=== PATIENT | female | born 2000 | race Caucasian/White ===

== ENCOUNTER 2021-04-29 20:37 | Emergency (ER) | payer OTHER, SELFPAY | END 2021-04-29 20:50 | disposition left against medical advice (07) | PROVIDERS: Emergency Provider Emergency Medicine | DX: G43.909 Migraine, unspecified, not intractable, without status migrainosus (principal) ==

== ENCOUNTER 2023-10-08 11:51 | Outpatient (AMB) | payer OTHER, SELFPAY ==
--- NOTE | 2023-10-08 11:55 | MHC.OFFWIV ---
Intake Vital Signs 10/08/23 11:59 Height 5 ft 3 in Weight 110 lb BMI 19.5 BP 100/60 Blood Pressure Location Lt brachial Position Sitting Pulse 81 Pulse Source Pulse Oximeter Pulse Oximetry (%) 99 Oxygen Delivery Method Room Air Intake Visit Reasons: EP Skin Irritation Intake Note: pt is here for skin irritation around mouth area started since february Patient Tobacco Use Status: Never used Tobacco Allergies amoxicillin Allergy (Mild, Verified 10/08/23 11:59) Rash Medication List - Last Reconciled 10/08/23 by Saurabh Renee MD albuterol sulfate 90 mcg/actuation (Ventolin HFA) inhalation norethindrone-e.estradiol-iron 1 mg-20 mcg ()/75 mg () ( FE 05/03 ()) 1 tab PO DAILY rizatriptan mg PO Do you need a note to return to daycare/school/sports/work: Yes HPI EP Skin Irritation HPI Details Patient is 23-year-old female came in today to be evaluated for rash she has developed around her nose and lip area for the past 4 or 5 days Patient says that she has had common cold few days ago. She does get cold sores but that does not feels like it Rash is burning and is painful. On examination she has erythematous scaly rash around right nasolabial fold around her lip and left corner. There are no vesicles. Rash looks like erysipelas Patient is allergic to amoxicillin which causes rash, but not any other severe reaction I have sent cephalexin 500 mg t.i.d. for 7 days, I tried calling patient but there is no response and there is answering machine with male voice I decided not to leave message for the patient due to that reason. [facility] Social History Patient Tobacco Use Status: Never used Tobacco Review of Systems Const Details: There is no fever no chills no nausea vomiting no diarrhea no abdominal pain no headache no dizziness no cough no sore throat All systems reviewed & are unremarkable except as noted in HPI and below Physical Exam Vital Signs: Last Vital Signs Pulse 81 10/08/23 11:59 BP 100/60 10/08/23 11:59 Pulse Ox 99 10/08/23 11:59 Oxygen Delivery Method Room Air 10/08/23 11:59 BMI result Body Mass Index 19.5 Const General: no acute distress Orientation/consciousness: patient oriented x3 HEENT Nose image: 1. Erythematous scaly rash 2. Erythematous scaling rash without any vesicles Eyes General: appearance normal, both eyes and all related structures Resp Effort & Inspection: normal respiratory effort and able to speak in complete sentences Neuro General: patient oriented x3 Psych Mental Status: mental status grossly normal Assessment & Plan Assessment & Plan (1) Patch of erysipelas: Code(s): A46 - Erysipelas Plan Patient is 23-year-old female came in today to be evaluated for rash she has developed around her nose and lip area for the past 4 or 5 days Patient says that she has had common cold few days ago. She does get cold sores but that does not feels like it Rash is burning and is painful. On examination she has erythematous scaly rash around right nasolabial fold around her lip and left corner. There are no vesicles. Rash looks like erysipelas Patient is allergic to amoxicillin which causes rash, but not any other severe reaction I have sent cephalexin 500 mg t.i.d. for 7 days, I tried calling patient but there is no response and there is answering machine with male voice I decided not to leave message for the patient due to that reason. Medications: New cephalexin 500 mg PO Q8H 21 caps 0RF 7 days Coding Level of Care Code Est Pt Level 4 (35745) Diagnoses Patch of erysipelas A46
[2023-10-08 11:59] VITALS: BP 100/60; PULSE 81; O2SAT 99; BMI 19.5
== END 2023-10-08 12:31 | disposition home or self-care (01) ==
PROVIDERS: PCP Physician Assistant Medical; Visit Provider Internal Medicine
DX: A46 Erysipelas (principal)
CPT/HCPCS: 99214

== ENCOUNTER 2023-10-29 12:25 | Outpatient (AMB) | payer OTHER, SELFPAY ==
[2023-10-29 12:28] VITALS: BP 114/70; PULSE 94; O2SAT 100; BMI 19.3
--- NOTE | 2023-10-29 12:28 | MHC.PC.OV ---
Vital Signs 10/29/23 12:28 Height 5 ft 3 in Weight 109 lb BMI 19.3 BP 114/70 Blood Pressure Location Rt brachial Position Sitting Pulse 94 Pulse Source Pulse Oximeter Pulse Oximetry (%) 100 Oxygen Delivery Method Room Air Intake Visit Reasons: Annual PE Allergies amoxicillin Allergy (Mild, Verified 10/29/23 12:29) Rash Medication List - Last Reconciled 10/29/23 by Saurabh Renee MD albuterol sulfate 90 mcg/actuation (Ventolin HFA) inhalation norethindrone-e.estradiol-iron 1 mg-20 mcg (21)/75 mg (7) (05/03 (28)) 1 tab PO DAILY rizatriptan mg PO Tobacco use date assessed: 10/29/23 Dental Screening Dental Screen Date: 10/29/23 Did you have a dental visit in the last 12 months?: Yes Did you have a dental problem in the last 6 months where you did not have access to dental care?: No Was dental information given to patient?: Patient has dentist HPI Annual PE HPI Details Patient is 23-year-old female came in today for her establish care visit and physical exam Patient had developed erysipelas face, cephalosporin was sent but she is intolerant of saphenous foreign so she never picked up She is using Neosporin which has helped but still have a rash, since rash has improved significantly I have sent clindamycin local solution to be used on the rash for next 2 weeks If still not better patient is to notify me so I can book appointment with Dermatology Need OBGYN appointment Patient have history of migraine headache and she is taking control continuously to prevent the migraines Patient says that the migraines were associated with her periods 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 Patient have a phobia of vomiting, requesting therapy for that, we have sent message to our behavior coordinator She also is in need of Tdap vaccine which was given today And TB screening for her college, which I have added with labs. [facility] Surgical History H/O right wrist surgery History of surgery on lower extremity Family History Mother No problems noted. Father Arthritis Social History Alcohol intake: current Alcohol intake frequency: holidays/special occasions only Patient Tobacco Use Status: Never used Tobacco Cognitive needs: No Hearing needs: No Vision needs: No Questionnaire PHQ-9 Over the last 2 weeks, how often have you been bothered by any of the following problems? 1. Little interest or pleasure in doing things: not at all 2. Feeling down, depressed, or hopeless: not at all 3. Trouble falling or staying asleep, or sleeping too much: not at all 4. Feeling tired or having little energy: not at all 5. Poor appetite or overeating: not at all 6. Feeling bad about yourself - or that you are a failure or have let yourself or your family down: several days 7. Trouble concentrating on things, such as reading the newspaper or watching television: not at all 8. Moving or speaking so slowly that other people could have noticed. Or the opposite - being so fidgety or restless that you have been moving around a lot more than usual: not at all 9. Thoughts that you would be better off or of hurting yourself in some way: not at all Total score: 1 Depression Screening Interpretation: Negative Depression Screening Done: Yes 37469 - PHQ-9 Billing: Yes Source: Developed by Drs. Gilbert Pennington, Hilda Farnsworth, Markel Villatoro and colleagues, with an educational loretta from [employer]. Thrive Questionnaire Date Thrive assessed: 10/29/23 I am a: Patient What is your living situation today?: I have a steady place to live Within the past 12 months, did the food you bought not last and you didn't have the money to get more?: Never true Within the past 12 months, did you worry whether your food would run out before you got money to buy more?: Never true Do you have trouble paying for medicines?: No Do you have trouble getting transportation to medical appointments?: No Do you have trouble paying your heating and electricity bill?: No Do you have trouble taking care of your child, family member or friend?: No Do you have trouble with day-to-day activities such as bathing, preparing meals, shopping, managing finances, etc.?: No Are you currently unemployed and looking for a job?: No Are you interested in more education?: No Please select the resources that you would like help with: Housing/Group Home Currently or been in a relationship where the following occur: No concerns reported THRIVE Score: 0 AUDIT C Alcohol Use Questionnaire (AUDIT-C) 1. How often do you have a drink containing alcohol?: Monthly or less 2. How many drinks containing alcohol do you have on a typical day when you are drinking?: 1 or 2 3. How often do you have six or more drinks on one occasion?: Never Total Score: 1 Score Reviewed/Action Taken: Yes TALON-7 AMB Questionnaire TALON-7 Date TALON - 7 assessed: 10/29/23 Feeling nervous, anxious, or on edge: 3 = Nearly every day Not being able to stop or control worryin = Several days Worrying too much about different things: 1 = Several days Trouble relaxin = Not at all Being so restless that it is hard to sit still: 0 = Not at all Becoming easily annoyed or irritable: 0 = Not at all Feeling afraid as if something awful might happen: 2 = More than half the days Total TALON-7 score (0-4 normal; 5-9 mild; 10-14 moderate; 15-21 severe): 7 Source: Developed by Drs. Gilbert Pennington, Hilda Farnsworth, Markel Villatoro and colleagues, with an educational loretta from [employer]. TALON-7 Assessment Billing TALON-7 Assessment Tool: TALON-7 Assessment 10766 Review of Systems Const Denies chills, Denies fever(s) and Denies headache(s) Eyes Denies blurry vision ENT Denies headache(s), Denies nasal discharge, Denies nasal obstruction, Denies odynophagia and Denies sinus pain Card Denies chest pain at rest and Denies chest pain with activity Resp Denies cough and Denies hemoptysis GI Denies diarrhea, Denies odynophagia, Denies vomiting and Denies hematemesis Reports as per HPI Musc Denies abnormal gait Skin/Breast Reports as per HPI Neuro Denies Neuro-related abnormal movements, Denies Abnormal speech present, Denies abnormal gait, Denies headache(s) and Denies Sensory deficit (Neuro) Psych Denies mood swings and Denies paranoia Endo Reports as per HPI Jos/Lymph Reports as per HPI Aller/Immun Reports as per HPI Physical exam (Primary Care) Vital Signs: Last Vital Signs Pulse 94 10/29/23 12:28 BP 114/70 10/29/23 12:28 Pulse Ox 100 10/29/23 12:28 Oxygen Delivery Method Room Air 10/29/23 12:28 BMI result Body Mass Index 19.3 Tobacco/Smoking Status: Tobacco use Status Tobacco use date assessed 10/29/23 10/29/23 12:37 Patient Tobacco Use Status Never used Tobacco 10/29/23 12:37 PHQ-9: PHQ-9 Score PHQ-9: Total score 1 10/29/23 12:58 Depression Screening Interpretation: Negative Thrive Assessment: Date of Thrive Assessment Date Thrive assessed 10/29/23 10/29/23 12:37 Currently or been in a relationship where the following occur: No concerns reported Const General: cooperative, comfortable and no acute distress Orientation/consciousness: patient oriented x3 HENMT Head: Yes normocephalic and Yes atraumatic Eyes General: appearance normal, both eyes and all related structures Pupils: Equal, round and reactive pupils present EOM: EOMs intact bilaterally Neck Neck: Yes supple and No lymphadenopathy Thyroid: Thyroid normal Lymphatic: no lymphadenopathy noted Resp Effort & Inspection: normal respiratory effort and able to speak in complete sentences Auscultation: clear to auscultation bilaterally Cardio Heart sounds: S1 normal heart sound present and S2 normal heart sound present GI Palpation (GI): Soft to palpation and nontender Auscultation: normal bowel sounds General: Yes no CVA tenderness Back/Spine/Pelvis Back: no CVA tenderness Skin General skin exam: elasticity normal and turgor normal Full body images: 1. Rash Neuro General: patient oriented x3 and gait normal Cranial nerves: Yes Equal, round and reactive pupils present Speech: No Abnormal speech present Sensory Exam: No Sensory deficit (Neuro) Coordination: tandem gait normal and Romberg test negative Extrem General: Yes normal exam except as noted and No edema Immunizations Boostrix Tdap 2.5 Lf unit-8 mcg-5 Lf/0.5 mL intramuscular syringe Performing Provider: Saurabh Renee MD Performing Location: [facility] Adult Primary [facility] Administered by: Luis Armando Brunner CMA on 10/29/23 12:58 Dose Route Admin Location Dispensed Lot Number Expiration Date [employer] 0.5 mL IM Left Deltoid 0.5 mL [id number] 11/28/25 [id number] [employer] VIS Given Date VIS Provided VIS Publication Date 10/29/23 Single Vaccine 20 Eligibility Eligibility Date Funding Source Not VF Eligible 10/29/23 Private Assessment and Plan Assessment & Plan (1) Establishing care with new doctor, encounter for: Code(s): Z76.89 - Persons encountering health services in other specified circumstances (2) Migraine headache without aura: Code(s): G43.009 - Migraine without aura, not intractable, without status migrainosus Qualifiers: Status migrainosus presence: without status migrainosus Intractability: not intractable Qualified Code(s): G43.009 - Migraine without aura, not intractable, without status migrainosus (3) Patch of erysipelas: Code(s): A46 - Erysipelas (4) Phobia: Code(s): F40.9 - Phobic anxiety disorder, unspecified Qualifiers: Phobia type: other phobic anxiety disorders Qualified Code(s): F40.8 - Other phobic anxiety disorders (5) Anxiety: Code(s): F41.9 - Anxiety disorder, unspecified (6) Screening-pulmonary TB: Code(s): Z11.1 - Encounter for screening for respiratory tuberculosis Plan Patient is 23-year-old female came in today for her establish care visit and physical exam Patient had developed erysipelas face, cephalosporin was sent but she is intolerant of saphenous foreign so she never picked up She is using Neosporin which has helped but still have a rash, since rash has improved significantly I have sent clindamycin local solution to be used on the rash for next 2 weeks If still not better patient is to notify me so I can book appointment with Dermatology Need OBGYN appointment Patient have history of migraine headache and she is taking control continuously to prevent the migraines Patient says that the migraines were associated with her periods 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 Patient have a phobia of vomiting, requesting therapy for that, we have sent message to our behavior coordinator She also is in need of Tdap vaccine which was given today And TB screening for her college, which I have added with labs. Orders: Orders Comprehensive [place]. Panel Fast Today A46 - Erysipelas, F40.9 - Phobic anxiety disorder, unspecified, F41.9 - Anxiety disorder, unspecified, G43.009 - Migraine without aura, not intractable, without status migrainosus, Z11.1 - Encounter for screening for respiratory tuberculosis, Z76.89 - Persons encountering health services in other specified circumstances Vitamin D 25-OH (D2 and D3) Today A46 - Erysipelas, F40.9 - Phobic anxiety disorder, unspecified, F41.9 - Anxiety disorder, unspecified, G43.009 - Migraine without aura, not intractable, without status migrainosus, Z11.1 - Encounter for screening for respiratory tuberculosis, Z76.89 - Persons encountering health services in other specified circumstances TDaP Immunization Today Z23 - Encounter for immunization Complete Blood Count Auto Diff Today A46 - Erysipelas, F40.9 - Phobic anxiety disorder, unspecified, F41.9 - Anxiety disorder, unspecified, G43.009 - Migraine without aura, not intractable, without status migrainosus, Z11.1 - Encounter for screening for respiratory tuberculosis, Z76.89 - Persons encountering health services in other specified circumstances Lipid Panel Today A46 - Erysipelas, F40.9 - Phobic anxiety disorder, unspecified, F41.9 - Anxiety disorder, unspecified, G43.009 - Migraine without aura, not intractable, without status migrainosus, Z11.1 - Encounter for screening for respiratory tuberculosis, Z76.89 - Persons encountering health services in other specified circumstances TSH reflex Free T4 Today A46 - Erysipelas, F40.9 - Phobic anxiety disorder, unspecified, F41.9 - Anxiety disorder, unspecified, G43.009 - Migraine without aura, not intractable, without status migrainosus, Z11.1 - Encounter for screening for respiratory tuberculosis, Z76.89 - Persons encountering health services in other specified circumstances T Spot TB Today Z11.1 - Encounter for screening for respiratory tuberculosis Referrals MANAGER OF CORPORATE Referral Z01.419 - Encounter for gynecological examination (general) (routine) without abnormal findings, Z78.9 - Other specified health status Medications: New clindamycin phosphate 1% 1 appl topical DAILY 14 days 30 mL 0RF Coding Level of Care Code New Pt Level 4 (55513) New Pt Prev Care 18-39yr(01243 Diagnoses Establishing care with new doctor, encounter for Z76.89 Migraine without aura and without status migrainosus, not intractable G43.009 Status migrainosus presence: without status migrainosus Intractability: not intractable Patch of erysipelas A46 Other phobic anxiety disorders F40.8 Phobia type: other phobic anxiety disorders Anxiety F41.9 Screening-pulmonary TB Z11.1 Additional Codes TALON-7 Assessment Billing - TALON-7 Assessment Tool: TALON-7 Assessment [id number] ([id number])
== END 2023-10-29 12:57 | disposition home or self-care (01) ==
PROVIDERS: PCP Physician Assistant Medical; Visit Provider Internal Medicine
DX: Z00.00 Encounter for general adult medical examination without abnormal findings (principal); G43.009 Migraine without aura, not intractable, without status migrainosus; A46 Erysipelas; Z23 Encounter for immunization; Z76.89 Persons encountering health services in other specified circumstances; F40.8 Other phobic anxiety disorders; F41.9 Anxiety disorder, unspecified; Z11.1 Encounter for screening for respiratory tuberculosis
CPT/HCPCS: 90471; 90715; 99214; 99395

== ENCOUNTER 2023-11-06 07:00 | Outpatient (REF) | payer OTHER, SELFPAY ==
[2023-11-06 10:51] LABS: MANUAL DIFF FLAG NO
[2023-11-06 11:13] LABS: Basophils Absolute Auto 0.1 X10*3/uL (0.0-0.2); Eosinophils Absolute Auto 0.2 X10*3/uL (0.0-0.4); Eosinophils Percent Auto 2.4 % (0-4); Hematocrit 39.9 % (37.0-47.0); Hemoglobin 13.2 g/dl (12.0-16.0); Imm Gran Abs Auto 0.01 X10*3/uL (0.00-0.03); Imm Gran Pct Auto 0.2 % (0.0-0.4); Lymphocytes Absolute Auto 2.6 X10*3/uL (1.2-4.9); Mean Corpuscular HGB Conc 33.1 g/dl (31.0-35.0); Mean Corpuscular Hemoglobin 28.8 pg (27.0-33.0); Mean Corpuscular Volume 86.9 fL (80.0-98.0); Mean Platelet Volume 11.3 fL (9.4-12.3); Monocytes Absolute Auto 0.4 X10*3/uL (0.1-1.2); Monocytes Percent Auto 6.1 % (2-11); Neutrophils Percent Auto 48.3 % (45-73); Platelet Count 172 X10*3/uL (160-400); Red Blood Count 4.59 X10*6/uL (4.20-5.50); Red Cell Distribution Width 13.3 % (11.0-16.0); White Blood Count 6.3 X10*3/uL (4.8-10.8)
[2023-11-06 11:45] LABS: Alanine Aminotransferase 12 U/L (0-31); Albumin Level 4.3 g/dL (3.5-5.0); Alkaline Phosphatase 41 U/L (39-117); Anion Gap 13 (12-20); Aspartate Amino Transferase 13 U/L (5-31); Blood Urea Nitrogen 18 mg/dL (9-16); Calcium 9.6 mg/dL (8.4-10.2); Carbon Dioxide 24 mmol/L (22-29); Chloride 107 mmol/L (96-108); Cholesterol 153 mg/dL (<200); Estimated Glomerular Filt Rate > 60; Glucose Fasting 80 mg/dL (60-99); HDL Cholesterol 41 mg/dL (>40); LDL Cholesterol Calculated 92 mg/dL (<100); Potassium 3.9 mmol/L (3.3-5.1); Sodium 140 mmol/L (135-145); TSH reflex Free T4 2.36 uIU/mL (0.32-4.0); Total Protein 7.1 g/dL (6.5-8.0); Triglycerides 101 mg/dL (<150)
[2023-11-09 09:49] LABS: TS Negative Control Passed; TS Panel A 0; TS Panel B 1; TS Positive Control Passed; TSpotTB Negative (Negative)
[2023-11-12 14:37] LABS: Vitamin D 25-OH, D2 <4 ng/mL; Vitamin D 25-OH, D3 51 ng/mL; Vitamin D 25-OH, Total 51 ng/mL (30-100)
== END 2023-11-06 07:01 | disposition home or self-care (01) ==
LOC: HO.HMGCLDS 07:00
PROVIDERS: PCP Internal Medicine; Visit Provider Internal Medicine
DX: G43.009 Migraine without aura, not intractable, without status migrainosus (principal); Z11.1 Encounter for screening for respiratory tuberculosis; F41.9 Anxiety disorder, unspecified; F40.9 Phobic anxiety disorder, unspecified; A46 Erysipelas; Z76.89 Persons encountering health services in other specified circumstances
CPT/HCPCS: 36415; 80053; 80061; 82306; 84443; 85025; 86481

== ENCOUNTER 2024-02-03 14:33 | Outpatient (AMB) | payer OTHER, SELFPAY ==
[2024-02-03 14:35] VITALS: BP 118/70; BMI 18.4
--- NOTE | 2024-02-03 14:35 | MHC.OFFVIS ---
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 Doing well with concerns: Not able to have intimacy or insert a tampon due to vaginal pain and discomfort externally over many years. She denies any trauma to the area, was told she had a history of labial fusion-has no memory of this. She has a current partner. Menarche age 13 had heavy menstrual bleeding and passed out frequently was placed on control early on and has remained on control for cycling. She reports on placebo week she would get a migraine so she skips the placebo week, is on extended pill packs and has some breakthrough bleeding takes a few days off and experiences a migraine during that timeframe. Wants to remain on control at this time. She denies any contraindications to control such as: migraines with aura, history of DVT or pulmonary emboli, high blood pressure, liver disease, thrombolic disorders, Lupus, +KIAN, breast cancer, or smoking. She tries to eat healthy and stays active with exercise. She denies vaginal itching and irritation. Denies family history of breast and ovarian. [facility] Medical History Phobia Anxiety Migraine headache without aura Surgical History H/O right wrist surgery History of surgery on lower extremity Family History Mother No problems noted. Father Arthritis Maternal Grandmother History of breast cancer Ovarian cancer Maternal Aunt History of breast cancer Social History Alcohol intake: current Alcohol intake frequency: holidays/special occasions only Patient Tobacco Use Status: Never used Tobacco Cognitive needs: No Hearing needs: No Vision needs: No Female Reproductive History Menstrual control method: pills Total pregnancies: 0 Review of Systems Const All systems reviewed & are unremarkable except as noted in HPI and below Reports as per HPI Eyes Reports no additional complaints ENT Reports no additional complaints Card Reports no additional complaints Resp Reports no additional complaints GI Reports as per HPI and Reports no additional complaints Reports as per HPI Musc Reports no additional complaints Skin/Breast Reports as per HPI Neuro Reports no additional complaints Psych Reports no additional complaints Endo Reports no additional complaints Jos/Lymph Reports no additional complaints Aller/Immun Reports no additional complaints Physical Exam Vital Signs: Last Vital Signs BP 118/70 02/03/24 14:35 BMI result Body Mass Index 18.4 Const General: cooperative, healthy appearing, no acute distress, well developed and alert Orientation/consciousness: patient oriented x3 HEENT Head: Yes normal to inspection Eyes General: appearance normal, both eyes and all related structures Neck Neck: Yes normal visual inspection Thyroid: Thyroid normal Chest Other: Breast mass left breast at 03:00 o'clock round, mobile, rubbery, slightly tender Chest palpation & inspection: normal inspection of the chest and other (no puckering, dimpling, peau de orange, retraction, discharge, masses) Breast/axilla inspection: normal inspection of the breasts Breast/axilla palpation: normal palpation of the breasts Resp Effort & Inspection: normal respiratory effort GI Inspection: Yes normal to inspection Palpation (GI): Soft to palpation Rectal Exam - Female: deferred Other: External inspection only due to patient discomfort, tensing. External Female Exam: normal external appearance, normal appearance of the urethra and other (Unable to insert fingertip past introitus, painful per patient) Skin General skin exam: no rashes or lesions noted Rashes: no rashes Neuro General: patient oriented x3 Cognition (Neuro): normal cognition Extrem General: Yes normal to inspection Psych Attitude: cooperative Thought process: Normal thought process present Assessment & Plan Assessment & Plan (1) Encounter for well woman exam with routine gynecological exam: Code(s): Z01.419 - Encounter for gynecological examination (general) (routine) without abnormal findings Category: Medical (2) Mass of left breast: Code(s): N63.20 - Unspecified lump in the left breast, unspecified quadrant Qualifiers: Breast mass location: unspecified quadrant Qualified Code(s): N63.20 - Unspecified lump in the left breast, unspecified quadrant (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 Pap smear NOT obtained today. Breast awareness and periodic breast exams. Many breast lumps are benign including cyst or fibroadenomas additional workup with breast ultrasound recommended. Plan breast ultrasound left breast follow up in office for results or referral if indicated. Maintain a healthy lifestyle including a well balanced diet and routine exercise. control hormone use warnings: go to ER if and loss of vision, blindness, severe headache, chest pain or difficulty breathing, severe abdominal pain, or any pain or swelling in an extremity. Referral to [facility] for vulvodynia specialist at UroGyn. Patient verbalizes understanding and agrees to the plan of care. She was given opportunity to ask questions and all questions were answered to the best of my ability. RTO in one year for annual brand director examination or sooner if any other concerns. This note is constructed using voice recognition software. While every effort has been made to ensure accuracy, installation and repair technician errors may have been included. Orders: Orders US breast LT complete Today N63.20 - Unspecified lump in the left breast, unspecified quadrant Referrals Urogynecology Referral N94.819 - Vulvodynia, unspecified Medications: Changed From norethindrone-e.estradiol-iron 1 mg-20 mcg (21)/75 mg (7) (05/03 (28)) 1 tab PO DAILY To norethindrone-e.estradiol-iron 1 mg-20 mcg (21)/75 mg (7) (05/03 (28)) continuous dosing, skip placebo week. 1 tab PO DAILY 84 tabs 4RF Coding Level of Care Code New Pt Prev Care 18-39yr(28316 Diagnoses Encounter for well woman exam with routine gynecological exam Z01.419 Mass of left breast, unspecified quadrant N63.20 Breast mass location: unspecified quadrant Vulvodynia N94.819 Surveillance for control, oral contraceptives Z30.41
== END 2024-02-03 15:39 | disposition home or self-care (01) ==
PROVIDERS: PCP Physician Assistant Medical; Visit Provider Advanced Practice Midwife
DX: Z01.419 Encounter for gynecological examination (general) (routine) without abnormal findings (principal); N63.20 Unspecified lump in the left breast, unspecified quadrant; N94.819 Vulvodynia, unspecified; Z30.41 Encounter for surveillance of contraceptive pills
CPT/HCPCS: 99385

== ENCOUNTER → 2024-02-03 14:33 | Outpatient (BNVA) | payer OTHER, SELFPAY | PROVIDERS: PCP Physician Assistant Medical; Visit Provider Advanced Practice Midwife | DX: Z01.419 Encounter for gynecological examination (general) (routine) without abnormal findings (principal); N63.20 Unspecified lump in the left breast, unspecified quadrant; N94.819 Vulvodynia, unspecified | CPT/HCPCS: 99385 ==

== ENCOUNTER 2024-02-05 14:11 | Outpatient (REF) | payer OTHER, SELFPAY ==
--- NOTE | ~2024-02-05 | US_ITS ---
EXAMINATION: US DIAGNOSTIC ULTRASOUND BREAST, LEFT CLINICAL INFORMATION: 23-year-old female, left breast palpable lump at 2:00 axis at the areolar border. Diagnostic ultrasound. COMPARISON: None available. TECHNIQUE: Ultrasound of the left breast is performed with real-time guadarrama scale imaging and color Doppler. Attention was given to the 1:00 to 5:00 axis left breast to include the palpable area of concern. FINDINGS: Correlating with the area of palpable concern, 2:00 axis, 1 cm from the nipple, there is a circumscribed hypoechoic oval mass, wider than tall, good through transmission, scant internal color Doppler flow, no surrounding parenchymal changes, findings most consistent with a benign fibroadenoma. This measures 0.8 x 1.0 x 0.9 cm. Six-month follow-up left breast ultrasound recommended to ensure stability. 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 This correlates well with the focus of palpable concern, and is probably benign. Six-month interval follow-up targeted left breast ultrasound recommended to ensure stability. ASSESSMENT: BI-RADS 3: Probably Benign RECOMMENDATION: Diagnostic ultrasound in 6 months. This patient's information was entered into a reminder system with a target due date for their next mammogram. Electronically signed by: Gabriel Shirley MD 02/05/2024 04:32 PM EDT
== END 2024-02-05 14:12 | disposition home or self-care (01) ==
LOC: HO.MAMMO 14:11
PROVIDERS: PCP Internal Medicine; Visit Provider Advanced Practice Midwife
DX: N63.25 Unspecified lump in the left breast, overlapping quadrants (principal)
CPT/HCPCS: 76642

== ENCOUNTER → 2024-02-05 14:30 | Outpatient (BNV) | payer OTHER, SELFPAY | PROVIDERS: PCP Internal Medicine; Visit Provider Radiology Diagnostic Radiology | DX: N60.22 Fibroadenosis of left breast (principal) | CPT/HCPCS: 76642 ==

== ENCOUNTER 2024-03-18 15:31 | Outpatient (AMB) | payer OTHER, SELFPAY ==
--- NOTE | 2024-03-18 15:44 | A.OFFVIS_ITS ---
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 She also has a referral appointment with Dr. Stefania Ferrell at [facility] on 04/02/2024. She is doing well on her OCPs and has refills. Her next annual is exquisite scheduled for 01/31/2025. She has no other concerns today. [facility] Medical History Phobia Anxiety Migraine headache without aura Surgical History H/O right wrist surgery History of surgery on lower extremity Family History Mother No problems noted. Father Arthritis Maternal Grandmother History of breast cancer Ovarian cancer Maternal Aunt History of breast cancer Social History Alcohol intake: current Alcohol intake frequency: holidays/special occasions only Patient Tobacco Use Status: Never used Tobacco Cognitive needs: No Hearing needs: No Vision needs: No Review of Systems Const All systems reviewed & are unremarkable except as noted in HPI and below Reports no additional complaints Skin/Breast Reports system reviewed and no additional complaints, except as documented and Reports as per HPI Physical Exam Const General: cooperative, healthy appearing and no acute distress Chest Other: 1 cm left breast lump at 02:00 o'clock position slightly tender, rubbery mobile. Breast/axilla inspection: normal inspection of the breasts and normal inspection of the axillae Breast/axilla palpation: normal palpation of the breasts Skin General skin exam: no rashes or lesions noted Results Reviewed Results Reviewed: [facility] [address] [place] [address] [place] [address] Ultrasound Report Signed Patient: Zunilda Ram MR#: [id number] : 2000 Acct:[id number] Age/Sex: 23 / F ADM Date: 02/05/24 Loc: HO.MAMMO Attending Dr: Magnolia Tucker CNM Ordering Physician: Magnolia Tucker CNM Date of Service: 02/05/24 Procedure(s): US breast LT limited mamm only Accession Number(s): [id number] cc: Saurabh Renee MD; Magnolia Tucker CNM~ EXAMINATION: US DIAGNOSTIC ULTRASOUND BREAST, LEFT CLINICAL INFORMATION: 23-year-old female, left breast palpable lump at 2:00 axis at the areolar border. Diagnostic ultrasound. COMPARISON: None available. TECHNIQUE: Ultrasound of the left breast is performed with real-time guadarrama scale imaging and color Doppler. Attention was given to the 1:00 to 5:00 axis left breast to include the palpable area of concern. FINDINGS: Correlating with the area of palpable concern, 2:00 axis, 1 cm from the nipple, there is a circumscribed hypoechoic oval mass, wider than tall, good through transmission, scant internal color Doppler flow, no surrounding parenchymal changes, findings most consistent with a benign fibroadenoma. This measures 0.8 x 1.0 x 0.9 cm. Six-month follow-up left breast ultrasound recommended to ensure stability. 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 This correlates well with the focus of palpable concern, and is probably benign. Six-month interval follow-up targeted left breast ultrasound recommended to ensure stability. ASSESSMENT: BI-RADS 3: Probably Benign RECOMMENDATION: Diagnostic ultrasound in 6 months. This patient's information was entered into a reminder system with a target due date for their next mammogram. 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 There is a six-month follow up ultrasound scheduled to reexamined the area in July. Patient is very interested in having this appointment and referral would be placed today. Advised to call the office if there is any other concerns. The patient expressed understanding and agreement with the plan of care. All of her questio ns and concerns were addressed to the best of my ability. This note is constructed using voice recognition software. While every effort has been made to ensure accuracy, graduate fellow errors may have been included. Orders: Referrals Breast Surgery Referral N63.20 - Unspecified lump in the left breast, unspecified quadrant Coding Level of Care Code Est Pt Level 3 (71710) Diagnoses Mass of left breast, unspecified quadrant N63.20 Breast mass location: unspecified quadrant Encounter to discuss test results Z71.2
--- OUTSIDE RECORDS SUMMARY | 2024-03-24 04:20 | XMS_ITS | Data Portability ---
Author Organization PIETER Martinez s, [address] Address [address] [place] [address] Assessment Encounter Date Assessment Date Assessment LastModified by Organization Details LastModified Time 07/26/2023 07/26/2023 Please obtain imaging of right hand Please take ibuprofen and tylenol as needed for pain [email or web address] Not available 07/26/2023 20:07:45 Plan of Treatment Reminders Order Date Submit Date Provider Last Modified By Organization Details Last Modified Time Details Appointments None recorded. Lab None recorded. Referral [facility]opedic surgeon [facility] Not available 14:49:54 Procedures None recorded. Surgeries None recorded. Imaging XR, hand, 3 or more view 2023 024 [email or web address], [address] [place] [address], [address], 4 08:25:05 XR, hand, 3 or more view - right hand , right pinky finger pain, injury, bruising and obvious deformity 2023 024 [email or web address], [address] [facility], [address], [address], 4 08:25:05 Medication Orders fexofenadi ne-pseudoe phedrine ER 180 mg-240 mg tablet,ext .release 24 hr 2022 023 [facility]ARY B[facility], [address] [place], [address], 4 19:18:29 prednisone 20 mg tablet 2022 023 [facility], [address] [place], [address], 19:18:31 Allergy Relief (fluticaso ne) 50 mcg/actuat ion nasal spray,susp ension 2022 023 [facility], [address] [place], [address], 19:18:26 Patient TargetsNo targets recorded. Patient Instructions Encounter Date Encounter Id Patient Instructions Last Modified By Organization Details Last Modified Time 09/18/2022 [id number] earache: care instructions [email or web address] Not available 09/18/2022 09:15:16 ear infection (otitis media): care instructions Not available 09/18/2022 09:15:16 Sinusitis is an infection of the lining of the sinus cavities in your head. Sinusitis often follows a cold. It causes pain and pressure in your head and face. In most cases, sinusitis gets better on its own in 1 to 2 weeks. But some mild symptoms may last for several weeks. Sometimes antibiotics are needed. if you are having problems. It's also a good idea to know your test results and keep a list of the medicines you take. How can you care for yourself at home? Take an vxzq-fvk-kjbijcs pain medicine. Avoid Ibuprofen, Aleve and Aspirin if . If the doctor prescribed antibiotics, take them as directed. Do not stop taking them just because you feel better. You need to take the full course of antibiotics. Be careful when taking akul-mnx-lnngbrc cold or influenza (flu) medicines and Tylenol at the same time. Many of these medicines have acetaminophen, which is Tylenol. Read the labels to make sure that you are not taking more than the recommended dose. Too much acetaminophen (Tylenol) can be harmful. Breathe warm, moist air from a steamy shower, a hot bath, or a sink filled with hot water. Avoid cold, dry air. Using a humidifier in your home may help. Follow the directions for cleaning the machine. Use saline (saltwater) nasal washes. This can help keep your nasal passages open and wash out mucus and bacteria. You can buy saline nose drops at a grocery store or drugstore. Or you can make your own at home by adding 1 teaspoon (5 millilitres) of salt and 1 teaspoon (5 millilitres) of baking soda to 2 cups (500 mL) of distilled water. If you make your own, fill a bulb syringe with the solution, insert the tip into your nostril, and squeeze gently. Blow your nose. Put a hot, wet towel or a warm gel pack on your face 3 or 4 times a day for 5 to 10 minutes each time. Try a decongestant nasal spray like oxymetazoline (Drixoral). Do not use it for more than 3 days in a row. Using it for more than 3 days can make your congestion worse. 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 Procedures Surgical History Date Name Laterality Status Provider Name and Address Organization Details Recorded Time procedure on wrist completed CHRISTOPHER DC PA - [facility] 09/18/2022 08:30:37 procedure on lower leg completed CHRISTOPHER DC PA - [facility] 09/18/2022 08:30:59 Imaging Results None recorded. Procedure Notes None recorded. Medical Equipment None Reported. Allergies Allergen ID Allergen Name Allergen Category Reaction Reaction Severity Criticality Documentation Date Start Date Code Code System Note Provider Name and Address Organization Details Recorded Time 392754 amoxicill in medicatio n rash Not available Not available 09/18/2022 723 RxNorm CHRISTOPHER DC [facility] PA - [facility] 3 08:29:37 Medications Name Sig Start Date Stop Date Status Note LastModified by Organization Details LastModified Time prednisone 20 mg tablet Take 2 tablets every day by oral route with meals for 3 days. 07/25 completed Not Available Not Available Not Available fexofenadin e-pseudoeph edrine ER 180 mg-240 mg tablet,ext. release 24 hr Take 1 tablet every day by oral route in the evening for 10 days. 07/25 completed Not Available Not Available Not Available rizatriptan 10 mg prn migraines active Not Available Not Available No t Available Ventolin HFA active Not Available Not Available Not Available (21) active Not Available Not Available Not Available Allergy Relief (fluticason e) 50 mcg/actuati on nasal spray,suspe nsion [place] 1 spray every day by intranasa l route as directed for 30 days. 07/25 completed Not Available Not Available Not Available Vitals Date Recorded Body height Body mass index (BMI) Body weight Oxygen saturation Oxygen saturation in Arterial blood by Pulse oximetry Heart rate Respiratory rate Body temperature Systolic blood pressure Diastolic blood pressure Provider Name and Address Organization Details Last Updated DateTime 3 160.02 cm 20.4 kg/m2 35413.1 2 g 100 % 100 % 86 /min 18 /min 97.9 [degF] 121 mm[Hg] 82 mm[Hg] CHRISTOPHER WASHINGTONSHERRY PA - [facility] 3 08:33:57 Date Recorded Body height Body mass index (BMI) Body weight Respiratory rate Body temperature Oxygen saturation Oxygen saturation in Arterial blood by Pulse oximetry Heart rate Systolic blood pressure Diastolic blood pressure Provider Name and Address Organization Details Last Updated DateTime 4 160.02 cm 20.4 kg/m2 95972.1 2 g 16 /min 97.7 [degF] 100 % 100 % 80 /min 117 mm[Hg] 70 mm[Hg] HERNAN LANGE PA - [facility] 4 19:21:03 Social History Question Answer Notes LastModified by NativeAD ion Details LastModified Time Tobacco Smoking Status Never Smoker CHRISTOPHER lindsey PA - [facility] 09/18/2022 08:31:38 What Is Your Level Of Alcohol Consumption? None Information not available 09/18/2022 Are You Currently Employed? Yes Information not available 09/18/2022 Have You Had Direct Contact, Or Contact During Intimacy, With Monkeypox Rash, Scabs, Or Body Fluids From A Person With Monkeypox? No Information not available 09/18/2022 Do You Use Any Illicit Or Recreational Drugs? No Information not available 09/18/2022 Have You Recently Traveled Abroad? No Information not available 09/18/2022 Are You Currently In School? Yes Information not available 09/18/2022 Do You Or Have You Ever Used Any Other Forms Of Tobacco Or Nicotine? No Information not available 09/18/2022 Sex: Unknown Functional Status None recorded. Mental Status None recorded. Family History Relationship Description Onset Age of this Age Resolved Age Notes LastModified by Organization Details LastModified Time Father No current problems or disability Not available 10/2022 08:30:26 Mother No current problems or disability Not available 10/2022 08:30:26 Medical History No medical history recorded. Gynecological History Statement/Question Response Date of LMP 07/13/2023 Is there any chance of ? No LMP Definite Obstetrics History GPAL:G 0 P 0 0 0 0 Immunizations Vaccine Type Date Status Note Provider Nam e and Address Organization Details Recorded Time meningococcal B, recombinant 1 completed CHRISTOPHER GOODTASHAND null, PA - [facility] 09/18/2022 08:29:29 meningococcal B, recombinant 2 completed CHRISTOPHER GOODHIND null, PA - [facility] 09/18/2022 08:29:29 HPV9 3 completed CHRISTOPHERDEUCE WASHINGTONHIND null, PA - [facility] 09/18/2022 08:29:29 HPV9 2 completed CHRISTOPHER LUOND null, PA - [facility] 09/18/2022 08:29:29 Influenza, MDCK, quadrivalent, PF 8 completed CHRISTOPHER LUOND null, PA - [facility] 09/18/2022 08:29:29 COVID-19, mRNA, LNP-S, PF, 30 mcg/0.3 mL dose 2 completed CHRISTOPHER GOODHIND null, PA - [facility] 09/18/2022 08:29:29 COVID-19, mRNA, LNP-S, PF, 30 mcg/0.3 mL dose 1 completed CHRISTOPHER GOODHIND null, PA - [facility] 09/18/2022 08:29:29 COVID-19, mRNA, LNP-S, PF, 30 mcg/0.3 mL dose 1 completed CHRISTOPHER LUOND null, PA - [facility] 09/18/2022 08:29:29 COVID-19, mRNA, LNP-S, bivalent, PF, 30 mcg/0.3 mL dose 2 completed CHRISTOPHER LUOND null, PA - [facility] 09/18/2022 08:29:29 Hep A, ped/adol, 2 dose 5 completed CHRISTOPHER LUOND null, PA - [facility] 09/18/2022 08:29:29 Hep A, ped/adol, 2 dose 6 completed CHRISTOPHER LUOND null, PA - [facility] 09/18/2022 08:29:29 meningococcal MCV4P 8 completed CHRISTOPHER GOODHIND null, PA - [facility] 09/18/2022 08:29:29 Influenza, split virus, quadrivalent, PF 9 completed CHRISTOPHER GOODHIND null, PA - [facility] 09/18/2022 08:29:29 Influenza, split virus, quadrivalent, PF 0 completed CHRISTOPHER GOODHIND null, PA - [facility] 09/18/2022 08:29:29 Influenza, split virus, quadrivalent, PF 1 completed CHRISTOPHER GOODHIND null, PA - [facility] 09/18/2022 08:29:29 Influenza, split virus, quadrivalent, PF 2 completed CHRISTOPHER GOODHIND null, PA - [facility] 09/18/2022 08:29:29 Influenza, split virus, quadrivalent, PF 5 completed CHRISTOPHER GOODHIND null, PA - [facility] 09/18/2022 08:29:29 Influenza, split virus, quadrivalent, PF 7 completed CHRISTOPHER GOODHIND null, PA - [facility] 09/18/2022 08:29:29 Influenza, split virus, quadrivalent, PF 6 completed CHRISTOPHER GOODHIND null, PA - [facility] 09/18/2022 08:29:29 Past Encounters Encounter ID Performer Location Encounter Start Date Encounter Closed Date Diagnosis/Indication Diagnosis SNOMED-CT Code Diagnosis ICD10 Code [id number] [address] [address] 04/30/2016 18:12:39 04/30/2016 19:13:[id number] [address] 01/26/2016 18:18:55 01/26/2016 19:05:[id number] [address] 01/29/2016 16:27:05 01/29/2016 16:47:15 [id number] [place] [address] 12/23/2021 09:41:22 12/23/2021 10:05:37 [id number] [address] [place] [address] 01/20/2020 14:24:46 01/20/2020 15:46:09 [id number] [address] [facility] [place] [address] 05/15/2019 11:28:14 05/15/2019 11:57:46 [id number] [address] [facility] [place] [address] 06/27/2019 09:14:26 06/27/2019 09:46:15 [id number] [address] [facility] [place] [address] 05/26/2019 08:53:30 05/26/2019 09:19:33 [id number] [address] [facility] [place] [address] 05/18/2019 08:52:36 05/18/2019 09:38:37 [id number] [address] [facility] [place] [address] 06/26/2019 11:35:44 06/26/2019 12:12:01 [id number] [address] [facility] [place] [address] 04/18/2019 08:49:40 04/18/2019 09:22:33 [id number] Wade Brown, [employer]STU[employer] [address] [facility] [place] [address] 09/18/2022 08:11:58 09/18/2022 09:22:25 Acute sinusitis 30356453 J01.90 [id number] LOY CARBALLO, COSTUME MAKER [address] [place] [address] 07/26/2023 17:55:49 07/30/2023 14:49:53 Injury of finger 53988412 S69.91XA Pain in finger 19476257 M79.644 Health Concerns Section Related Observation LastModified by Organization Detai ls LastModified Time None Recorded Concern Status LastModified by Organization Details LastModified Time None Recorded Advance Directives Directive None Recorded Payers Encounter Date Sequence Insurance Name Policy Number Policy Allen Covered Member ID Allen Member ID Guarantor Name 06/27/2019 1 [facility] [employer] - [place] [employer] WITH [facility] (MEDICAID HMO) [id number] Zunilda Leanna [id number] Zunilda Leanna 01/20/2020 1 [facility] [employer] - [place] [employer] WITH [facility] (MEDICAID HMO) [id number] Zunilda Leanna [id number] Zunildaisai Ram 12/23/2021 1 [facility] [employer] - [place] [employer] WITH [facility] [employer] (MEDICAID HMO) [id number] Zunildaisai Ram [id number] Zunilda Ram 09/18/2022 2 [facility] [employer] (MEDICAID HMO) Zunilda Ram [id number] Zunilda Ram 07/26/2023 1 [facility] (MEDICAID REPLACEMENT - HMO) [place] Zunilda Ram [id number] Zunilda Ram Notes Date Note Type Note Provider Name and Address Organization Details Recorded Time 09/18/2022 text/html CongestionReport ed bypatient.Notes:nasal congestion with post nasal drip x 3 days. denies nay fever or fever with chills. no SOB or respiratory distress.Ear Pain Brief HPIReported bypatient.Location:pain radiates to neck; bilateral Onset/Timing:intermitte nt pain; gradual onset Duration:occurs daily; sensation/episode variable length Quality:aching pain;sharp pain Severity:getting worse; current pain 5/10 Context:recent ear infection Alleviating factors:ototopical antibiotics: ; nasal steroid spray Aggravating factors:sinus infections; allergies; irrigation of ear Associated Symptoms:Cough;nasal congestion;nasal discharge Wade Brown NP [address] [place], [address], PA - [facility] 09/18/2022 09:15:38 07/26/2023 text/html Finger PainRepor janie bypatient.source of patient [id number] finger pain laceration, bruising was playing lacrose, was stuck by another player has mild pain, no tingling or numbness to tip of pinky finger Locationlocation: right; [place];proximal phalanx; pain, deformity, bruising proximal aspect Neurovascular Status:color change in affected finger; no numbness or tingling Symptoms:pain with ROM;swelling;bruising;l aceration/abrasion LOY CARBALLO NP [address] [facility] [place], [address], PA - [facility] 07/26/2023 20:35:47 OBGyn Episode No OBEpisode recorded.
== END 2024-03-18 16:25 | disposition home or self-care (01) ==
LOC: HO.HWS 15:31
PROVIDERS: PCP Internal Medicine; Visit Provider Advanced Practice Midwife
DX: N63.20 Unspecified lump in the left breast, unspecified quadrant (principal); Z71.2 Person consulting for explanation of examination or test findings
CPT/HCPCS: 99213

== ENCOUNTER → 2024-03-18 15:31 | Outpatient (BNVA) | payer OTHER, SELFPAY | PROVIDERS: PCP Internal Medicine; Visit Provider Advanced Practice Midwife | DX: N63.21 Unspecified lump in the left breast, upper outer quadrant (principal); Z80.3 Family history of malignant neoplasm of breast; Z71.2 Person consulting for explanation of examination or test findings | CPT/HCPCS: 99212 ==

== ENCOUNTER 2024-04-01 08:53 | Outpatient (AMB) | payer OTHER, SELFPAY ==
--- NOTE | 2024-04-01 09:10 | MHC.OFFVIS ---
Vital Signs 04/01/24 09:14 Height 5 ft 3 in Weight 108 lb BMI 19.1 BP 124/77 Blood Pressure Location Lt brachial Position Sitting Pulse 104 H Intake Visit Reasons: Unspecified lump left breast Intake Note: Patient is seen in office for evaluation of a left breast lump. Pt c/o: lump was found by php mysql web developer, had mammogram done, painful to the touch, no prior breast concern, has fm hx of breast cancer maternal grandmother and great aunt had cancer age 40s us/mm:03/18/24 Jewel Sawyer Required: No Esthetician [employer]: Est[employer] Present Accompanied by: Self / Same As Patient Allergies amoxicillin Allergy (Mild, Verified 04/01/24 09:14) Rash Medication List - Last Reconciled 04/01/24 by Nathaniel Carlos MD albuterol sulfate 90 mcg/actuation (Ventolin HFA) inhalation norethindrone-e.estradiol-iron 1 mg-20 mcg (21)/75 mg (7) ( FE 05/03 (28)) 1 tab PO DAILY pimecrolimus 1% appl topical rizatriptan mg PO HPI Comments Details: 24-year-old female patient presenting with a palpable mass noted on self examination in the left breast just lateral to the nipple. She occasionally notes some discomfort when the lesion is palpated. The lesion has not changed significantly since she 1st noted the lump. Subsequent ultrasound revealed an approximately 1 cm benign-appearing hypodense lesion corresponding to the palpable mass suggestive of a fibroadenoma. Six-month follow-up was recommended to document stability. She denies a previous history of breast problems or breast surgery. Her family history is significant for a maternal aunt and grandmother with breast cancer. [facility] Medical History Phobia Anxiety Migraine headache without aura Surgical History H/O fasciotomy H/O right wrist surgery History of surgery on lower extremity Family History Mother No problems noted. Father Arthritis Maternal Grandmother History of breast cancer Ovarian cancer Maternal Aunt History of breast cancer Social History Alcohol intake: current Alcohol intake frequency: holidays/special occasions only Patient Tobacco Use Status: Never used Tobacco Cognitive needs: No Hearing needs: No Vision needs: No Female Reproductive History Menstrual Age of Menarche: 13 Total pregnancies: 0 Review of Systems Const All systems reviewed & are unremarkable except as noted in HPI and below Physical Exam Vital Signs: Last Vital Signs Pulse 104 H 04/01/24 09:14 BP 124/77 04/01/24 09:14 BMI result Body Mass Index 19.1 Const General: cooperative and no acute distress Nutritional Appearance: well nourished Orientation/consciousness: patient oriented x3 Limitations: no limitations HEENT Head: Yes normocephalic and Yes atraumatic Ears: hearing grossly normal bilaterally Chest Other: Left breast: No skin change, no nipple retraction, no nipple discharge, no enlarged lymph nodes, palpable mass as noted below in the 2 to 3 o'clock position.. Right breast: No skin change, no nipple retraction, no nipple discharge, no palpable mass, no enlarged lymph nodes Chest/axillae images: 1. 1 cm mobile rubbery mass in approximately the 2 to 3 o'clock position with no overlying skin changes, minimally tender to palpation. No other palpable mass in either side. 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 Ultrasound confirmed a hypodense lesion with a smooth margin measuring approximately 1 cm felt to be consistent with a fibroadenoma. Ultrasound in 6 months was recommended to assure stability. Examination does confirm a rubbery, mobile palpable mass consistent with a fibroadenoma; no other suspicious findings were noted. Hand and was given the option of either continued observation, needle core biopsy with ultrasound guidance, or excision of the palpable lesion. After discussion of the procedure, risks and alternatives, she has decided to continue observation. She will return in 6 months following the next ultrasound to review the results. She is welcome to call sooner for any new concerns. 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
--- OUTSIDE RECORDS SUMMARY | 2024-04-01 09:10 | XMS_ITS | Data Portability ---
Author Organization PIETER Martinez s, [address] Address [address] [place] [address] Assessment Encounter Date Assessment Date Assessment LastModified [...] recorded. Referral orthopedic surgeon referral 2023 024 [facility] Not available 14:49:54 Procedures None recorded. Surgeries None recorded. Imaging XR, hand, 3 or more view 2023 024 [email or web address], [address] [place] [address], [address], 4 08:25:05 XR, hand, 3 or more view - right hand , right pinky finger pain, injury, bruising and obvious deformity 2023 024 [email or web address] [place], [address] [facility], [address], [address], 4 08:25:05 Medication Orders fexofenadi ne-pseudoe phedrine ER 180 mg-240 mg tablet,ext .release 24 hr 2022 023 MARY BETH [facility], [address] [place], [address], 4 19:18:29 prednisone 20 mg tablet 2022 023 [facility], [address] [place], [address], 19:18:31 Allergy Relief (fluticaso ne) 50 mcg/actuat ion nasal spray,susp ension 2022 023 [facility], [address] [place], [address], 19:18:26 Patient TargetsNo targets recorded. Patient Instructions Encounter Date Encounter Id Patient Instructions Last Modified By Organization Details Last Modified Time 09/18/2022 [id number] earache: care instructions [email or web address] Not available 09/18/2022 [...] care for yourself at home? Take an vmud-ulq-ldlyjyf pain medicine. Avoid Ibuprofen, Aleve and Aspirin if . If the doctor prescribed antibiotics, take them as directed. Do not stop taking them just because you feel better. You need to take the full course of antibiotics. Be careful when taking azfd-fme-eivwecn cold or influenza (flu) medicines and Tylenol [...] congestion worse. 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 965141058 Active 2022 CHRISTOPHER lindsey PA - [facility] 3 08:31:22 Injury of finger 26943904 Active 2023 LOY CARBALLO NP [address] [place], [address] [facility] PA Bertin [facility] 4 19:59:33 Pain in finger 69877883 Active 2023 [place], [address] , PA - [facility] 4 20:06:37 [...] Name and Address Organization Details Recorded Time 962832 amoxicill in medicatio n rash Not available Not available 09/18/2022 723 [facility] CHRISTOPHER DC [facility] PA - [facility] 3 08:29:37 Medications [...] e) 50 mcg/actuati on nasal spray,suspe nsion [place] 1 spray every day by intranasa l [...] Updated DateTime 3 160.02 cm 20.4 kg/m2 26311.1 2 g 100 % 100 % 86 [...] Updated DateTime 4 160.02 cm 20.4 kg/m2 31680.1 2 g 16 /min 97.7 [degF] 100 % 100 % 80 /min 117 mm[Hg] 70 mm[Hg] HERNAN LANGE PA - [facility] 4 19:21:03 Social History Question Answer Notes LastModified by [facility] ion Details LastModified Time Tobacco Smoking Status [...] Influenza, split virus, quadrivalent, PF 5 completed CHIRSTOPHER GOODHIND null, PA - [facility] 09/18/2022 08:29:29 Influenza, split virus, quadrivalent, PF 7 completed CHRISTOPHER GOODHIND null, PA - [facility] 09/18/2022 08:29:29 Influenza, split virus, quadrivalent, PF 6 completed CHRISTOPHER GOODHIND null, PA - [facility] 09/18/2022 08:29:29 Past Encounters Encounter ID Performer Location Encounter Start Date Encounter Closed Date Diagnosis/Indication Diagnosis SNOMED-CT Code Diagnosis ICD10 Code [id number] [address] [address] 04/30/2016 18:12:39 04/30/2016 19:13:[id number] [address] 01/26/2016 18:18:55 01/26/2016 19:05:[id number] [address] 01/29/2016 16:27:05 01/29/2016 16:47:15 [id number] [place] [address] 12/23/2021 09:41:22 12/23/2021 10:05:37 [id number] [address] [place] [address] 01/20/2020 14:24:46 01/20/2020 15:46:09 [id number] [address] [facility] [place] [address] 05/15/2019 11:28:14 05/15/2019 11:57:46 [id number] [address] [facility] [place] [address] 06/27/2019 09:14:26 06/27/2019 09:46:15 [id number] [address] [facility] [place] [address] 05/26/2019 08:53:30 05/26/2019 09:19:33 [id number] [address] [facility] [place] [address] 05/18/2019 08:52:36 05/18/2019 09:38:37 [id number] [address] [facility] [place] [address] 06/26/2019 11:35:44 06/26/2019 12:12:01 [id number] [address] [facility] [place] [address] 04/18/2019 08:49:40 04/18/2019 09:22:33 [id number] Wade Brown, [employer] [address] [facility] [place] [address] 09/18/2022 08:11:58 09/18/2022 09:22:25 Acute sinusitis 43715391 J01.90 [id number] LOY CARBALLO, [employer] [address] [place] [address] 07/26/2023 17:55:49 07/30/2023 14:49:53 Injury of finger 07857397 S69.91XA Pain in finger 22532075 M79.644 Health Concerns Section Related Observation LastModified by Organization Detai ls LastModified Time None Recorded Concern Status LastModified by Organization Details LastModified Time None Recorded Advance Directives Directive None Recorded Payers Encounter Date Sequence Insurance Name Policy Number Policy Allen Covered Member ID Allen Member ID Guarantor Name 06/27/2019 1 [facility] [employer] - [place] WITH [facility] (MEDICAID HMO) [id number] Zunilda Leanna [id number] Zunilda Leanna 01/20/2020 1 [facility] [employer] - [employer] [facility] (MEDICAID HMO) [id number] Zunilda Leanna [id number] Zunildaisai Ram 12/23/2021 1 [facility] [employer] - [employer] [facility] (MEDICAID HMO) [id number] Zunildaisai Ram [id number] Zunilda Ram 09/18/2022 2 [facility] PL[facility] (MEDICAID HMO) Zunilda Ram [id number] Zunilda Ram 07/26/2023 1 [facility] (MEDICAID REPLACEMENT - HMO) [place] Zunilda Ram [id number] Zunilda Ram Notes Date Note Type Note [...] Wade Brown NP [address] [place], [address], PA - [facility] 09/18/2022 09:15:38 07/26/2023 text/html Finger PainRepor janie bypatient.source of patient [id number] finger pain laceration, bruising was playing lacrose, was stuck by another player has mild pain, no tingling or numbness to tip of pinky finger Locationlocation: right; [place];proximal phalanx; pain, deformity, bruising proximal aspect Neurovascular Status:color change in affected finger; no numbness or tingling Symptoms:pain with ROM;swelling;bruising;l aceration/abrasion LOY CARBALLO NP [address] [facility] [place], [address], PA - [facility] 07/26/2023 20:35:47 OBGyn Episode No OBEpisode recorded.
[2024-04-01 09:14] VITALS: BP 124/77; PULSE 104; BMI 19.1
== END 2024-04-01 09:29 | disposition home or self-care (01) ==
PROVIDERS: PCP Internal Medicine; Visit Provider Surgery
DX: D24.2 Benign neoplasm of left breast (principal)
CPT/HCPCS: 99204

== ENCOUNTER → 2024-04-01 08:53 | Outpatient (BNVA) | payer OTHER, SELFPAY | PROVIDERS: PCP Internal Medicine; Visit Provider Surgery | DX: D24.2 Benign neoplasm of left breast (principal); Z80.3 Family history of malignant neoplasm of breast | CPT/HCPCS: 99202 ==

== ENCOUNTER 2024-07-15 08:00 | Outpatient (AMB) | payer OTHER, SELFPAY ==
--- OUTSIDE RECORDS SUMMARY | 2024-07-15 08:04 | XMS_ITS | Encounter Summary ---
Author Organization [facility] Address [address] [place] [phone] Phone Care Team Providers Care Embroidery Cutter Name Role Phone Mei Jesus MD Primary Care Provider Encounter Details Date Type Department Care Team (Late st Contact Info) Description 11/28/2016 Conversion Encounter [facility] [address] [place] [address] Social History Tobacco Use Types Packs/Day Years Used Date Smoking Tobacco: Never Comments:Never smoker Comments Unknown Sex and Gender Information Value Date Recorded Sex Assigned at Female 12/20/2019 11:20 AM EDT Legal Sex Female 5:17 PM EDT Gender Identity Female 12/12/2019 10:40 AM EDT Sexual Orientation Straight 12/17/2018 8: 03 AM EDT documented as of this encounter Plan of Treatment Not on file documented as of this encounter Visit Diagnoses Not on filedocumented in this encounter Care Teams Embroidery Cutter Relationship Specialty Start Date End Date Mei Jesus MD [address] [place] [address] PCP - General Pediatrics 11/27/22 02/11/23 documented as of this encounter
--- OUTSIDE RECORDS SUMMARY | 2024-07-15 08:04 | XMS_ITS | Encounter Summary ---
Author Organization [facility] Address [address] [place] [address] Phone Care Team Providers Care Prescription Benefit Specialist Name Role Phone Mei Jesus MD Primary Care Provider Encounter Details Date Type Department Care Team (Late st Contact Info) Description 02/27/2016 Documentation [facility] Family Medicine [address] [place], [place] [phone] Family Medicine, Physician [address], [place] [phone] Social History Tobacco Use Types Packs/Day Years [...] on filedocumented in this encounter Care Teams Prescription Benefit Specialist Relationship Specialty Start Date End Date Mei Jesus MD [address] [place] [address] PCP - General Pediatrics 11/27/22 02/11/23 documented as of this encounter
--- OUTSIDE RECORDS SUMMARY | 2024-07-15 08:04 | XMS_ITS | Encounter Summary ---
Author Organization [facility] Address [address] [place] [address] Phone Care Team Providers Care Financial Analyst Name Role Phone Mei Jesus MD Primary Care Provider Encounter Details Date Type Department Care Team (Late st Contact Info) Description 09/01/2009 Documentation [facility] Family Medicine [address] [place] [address] Family Medicine, Physician [address] [phone] Social History Tobacco Use Types Packs/Day Years Used Date Smoking Tobacco: Never Assessed Comments Unknown Sex and Gender Information Value [...] on filedocumented in this encounter Care Teams Financial Analyst Relationship Specialty Start Date End Date Mei Jesus MD [address] [place] [address] PCP - General Pediatrics 11/27/22 02/11/23 documented as of this encounter
--- OUTSIDE RECORDS SUMMARY | 2024-07-15 08:04 | XMS_ITS | Data Portability ---
Author Organization PIETER Martinez s, [address] Address [address] [place] [address] Assessment Encounter Date Assessment Date Assessment LastModified [...] recorded. Referral orthopedic surgeon [facility] Not [facility] 14:49:54 Procedures None recorded. Surgeries None recorded. Imaging XR, hand, 3 or more view 2023 024 [email or web address], [address] [place] [address], [address], 4 08:25:05 XR, hand, 3 or more view - right hand , right pinky finger pain, injury, bruising and obvious deformity 2023 024 [email or web address] [place], [address] [facility], [address], [address], 4 08:25:05 Medication Orders fexofenadi ne-pseudoe phedrine ER 180 mg-240 mg tablet,ext .release 24 hr 2022 023 MARY BETH [facility], [address] [place], [address], 4 19:18:29 prednisone 20 mg tablet 2022 023 [facility], [address] [place], [address], 19:18:31 Allergy Relief (fluticaso ne) 50 mcg/actuat ion nasal spray,susp ension 2022 023 [facility], [address] [place], [address], 19:18:26 Patient TargetsNo targets recorded. Patient Instructions Encounter Date Encounter Id Patient Instructions Last Modified By Organization Details Last Modified Time 09/18/2022 [id number] earache: care instructions [email or web address] Not available 09/18/2022 [...] care for yourself at home? Take an mytz-dle-bbwoynu pain medicine. Avoid Ibuprofen, Aleve and Aspirin if . If the doctor prescribed antibiotics, take them as directed. Do not stop taking them just because you feel better. You need to take the full course of antibiotics. Be careful when taking sqpj-cal-yqivejz cold or influenza (flu) medicines and Tylenol [...] congestion worse. Not available 09/18/2022 09:15:14 07/26/2023 [id number] learning about rice (rest, ice, compression, and elevation) pat Not available 07/26/2023 20:08:00 application of splint, finger* [email or web address] Not available 08/02/2023 13:57:39 Reason for Referral Orthopedic Surgeon Referral for Pain in finger Referring Physician: Loy Carballo, Urgent Care, Encounter Date: 07/26/2023 Problems Name Problem SNOMED Code Status Onset Date Resolution Date Notes Provider Name and Address Organization Details Recorded Time Migraine 04611705 Active 2022 CHRISTOPHER lindsey PA - [facility] 3 08:30:19 Compartment syndrome of lower limb due to traumatic injury 484819571 Active 2022 CHRISTOPHER lindsey PA - [facility] 3 08:31:22 Injury of finger 97140566 Active 2023 LOY CARBALLO NP [address] [place], [address] [facility] PA Bertin [facility] 4 19:59:33 Pain in finger 66527778 Active 2023 [place], [address] , PA - [facility] 4 20:06:37 [...] Name and Address Organization Details Recorded Time 287790 amoxicill in medicatio n rash Not available Not available 09/18/2022 723 [facility] CHRISTOPHER [facility] PA - [facility] 3 [...] e) 50 mcg/actuati on nasal spray,suspe nsion [place] 1 spray every day by intranasa l [...] Updated DateTime 3 160.02 cm 20.4 kg/m2 39208.1 2 g 100 % 100 % 86 /min 18 /min 97.9 [degF] 121 mm[Hg] 82 mm[Hg] CHRISTOPHER VANDA PA - [facility] 3 08:33:57 Date Recorded Body height Body mass index (BMI) Body weight Pain severity - 0-10 verbal numeric rating [Score] - Reported Respiratory rate Body temperature Oxygen saturation Oxygen saturation in Arterial blood by Pulse oximetry Heart rate Systolic blood pressure Diastolic blood pressure Provider Name and Address Organization Details Last Updated DateTime 4 160.02 cm 20.4 kg/m2 78696.1 2 g 3 16 /min 97.7 [degF] 100 % 100 % 80 /min 117 mm[Hg] 70 mm[Hg] HERNAN LANGE PA - [facility] 4 19:21:03 Social History Question Answer Notes LastModified by [employer] ion Details LastModified Time Tobacco Smoking Status Never Smoker CHRISTOPHER lindsey [facility] 09/18/2022 08:31:38 What Is Your Level [...] Time meningococcal B, recombinant 1 completed CHRISTOPHER GOODHIND null, PA - [facility] 09/18/2022 08:29:29 meningococcal B, recombinant 2 completed CHRISTOPHER GOODHIND null, PA - [facility] 09/18/2022 08:29:29 HPV9 3 completed CHRISTOPHER GOODHIND null, PA - [facility] 09/18/2022 08:29:29 HPV9 2 completed CHRISTOPHER LUOND null, PA - [facility] 09/18/2022 08:29:29 Influenza, MDCK, quadrivalent, PF 8 completed CHRISTOPHER WASHINGTONHIND null, PA - [facility] 09/18/2022 [...] A, ped/adol, 2 dose 5 completed CHRISTOPHER GOODHIND null, PA - [facility] 09/18/2022 08:29:29 Hep A, ped/adol, 2 dose 6 completed CHRISTOPHER DC null, PA - [facility] 09/18/2022 08:29:29 meningococcal MCV4P 8 completed CHRISTOPHER LUOND null, PA - [facility] 09/18/2022 08:29:29 Influenza, split virus, quadrivalent, PF 9 completed CHRISTOPHER LUOND null, PA - [facility] 09/18/2022 08:29:29 Influenza, split virus, quadrivalent, PF 0 completed CHRISTOPHER DC null, PA - [facility] 09/18/2022 08:29:29 Influenza, split virus, quadrivalent, PF 1 completed CHRISTOPHER DC null, PA - [facility] 09/18/2022 08:29:29 Influenza, split virus, quadrivalent, PF 2 completed CHRISTOPHER LUOND null, PA - [facility] 09/18/2022 08:29:29 Influenza, split virus, quadrivalent, PF 5 completed CHRISTOPHER LUOND null, PA - [facility] 09/18/2022 08:29:29 Influenza, split virus, quadrivalent, PF 7 completed CHRISTOPHER LUOND null, PA - [facility] 09/18/2022 08:29:29 Influenza, split virus, quadrivalent, PF 6 completed CHRISTOPHER LUOND null, PA - [facility] 09/18/2022 08:29:29 Past Encounters Encounter ID Performer Location Encounter Start Date Encounter Closed Date Diagnosis/Indication Diagnosis SNOMED-CT Code Diagnosis ICD10 Code Diagnosis Note [id number] [address] [address] 04/30/2016 18:12:39 04/30/2016 19:13:[id number] [address] 01/26/2016 18:18:55 01/26/2016 19:05:[id number] [address] 01/29/2016 16:27:05 01/29/2016 16:47:15 [id number] [place] [address] 12/23/2021 09:41:22 12/23/2021 10:05:37 [id number] [address] [facility] [place] [address] 01/20/2020 14:24:46 01/20/2020 15:46:09 [id number] [address] [facility] [place] [address] 05/15/2019 11:28:14 05/15/2019 11:57:46 [id number] [address] [facility] [place] [address] 06/27/2019 09:14:26 06/27/2019 09:46:15 [id number] [address] [facility] [place] [address] 05/26/2019 08:53:30 05/26/2019 09:19:33 [id number] [address] [facility] [place] [address] 05/18/2019 08:52:36 05/18/2019 09:38:37 [id number] [address] [facility] [place] [address] 06/26/2019 11:35:44 06/26/2019 12:12:01 [id number] [address] [facility] [place] [address] 04/18/2019 08:49:40 04/18/2019 09:22:33 [id number] Wade Brown NP [address] [facility] [place] [place] [address] 09/18/2022 08:11:58 09/18/2022 09:22:25 Acute sinusitis 55300909 J01.90 [id number] [place] [address] [place] [address] 07/26/2023 17:55:49 07/30/2023 14:49:53 Injury of finger 59303726 S69.91XA Pain in finger 80978572 M79.644 Health Concerns Section Related Observation LastModified by Organization Detai ls LastModified Time None Recorded Concern Status LastModified by Organization Details LastModified Time None Recorded Advance Directives Directive None Recorded Payers Encounter Date Sequence Insurance Name Policy Number Policy Allen Covered Member ID Allen Member ID Guarantor Name 06/27/2019 1 [facility] TOGET[facility] WITH [facility] (MEDICAID HMO) [id number] Zunilda Leanna [id number] Zunilda Leanna 01/20/[address] [facility] [employer] [facility] TOGETHER WITH [facility] (MEDICAID HMO) [id number] Zunilda Lalason [id number] Zunilda Leanna 12/23/2021 1 [facility] TOGETHER WITH [facility] (MEDICAID HMO) [id number] Zunilda Lalason [id number] Zunilda Leanna 09/18/2022 2 [facility] PLAN (MEDICAID HMO) Zunilda Lalason [id number] Zunilda Ram 07/26/2023 1 [facility] (MEDICAID REPLACEMENT - HMO) [id number] Zunildaisai Ram [id number] Zunilda Lalason Notes Date Note Type Note Provider Name [...] Wade Brown NP [address] [place], [address], [employer] 09/18/2022 09:15:38 07/26/2023 text/html Finger PainRepor janie [email or web address].source of patient [email or web address] finger pain laceration, bruising was playing lacrose, was stuck by another player has mild pain, no tingling or numbness to tip of pinky finger Locationlocation: right; [place];proximal phalanx; pain, deformity, bruising proximal aspect Neurovascular Status:color change in affected finger; no numbness or tingling Symptoms:pain with ROM;swelling;bruising;l aceration/abrasion LOY CARBALLO NP [address] [place], [address], [employer] 07/26/2023 20:35:47 OBGyn Episode No OBEpisode recorded.
--- OUTSIDE RECORDS SUMMARY | 2024-07-15 08:04 | XMS_ITS | Encounter Summary ---
Author Organization [facility] Address [address] [place] [address] Phone Care Team Providers Care Senior Planning Analyst Name Role Phone Mei Jesus MD Primary Care Provider + [phone] Reason for Visit * Reason Comments Med Refill Encounter Details Date Type Department Care Team (Late st Contact Info) Description 01/10/2017 Refill [facility] [place] [address] [place] [address] Magdalena Chavez NP [address] [address] Oral contraceptive use (Primary Dx) Social History Tobacco Use Types Packs/Day Years Used Date Smoking Tobacco: Never Comments:Never smoker Comments Unknown Sex and Gender Information Value Date Recorded Sex Assigned at Female 12/20/2019 11:20 AM EDT Legal Sex Female 5:17 PM EDT Gender Identity Female 12/12/2019 10:40 AM EDT Sexual Orientation Straight 12/17/2018 8: 03 AM EDT documented as of this encounter Miscellaneous Notes * Telephone Encounter - Isi Arora LPN - 01/10/2017 8:59 AM EDT Pharm fax refill request OCP. Last PE 11/28 EH documented in this encounter Plan of Treatment Not on file documented as of this encounter Visit Diagnoses Diagnosis Oral contraceptive use- Primary documented in this encounter Care Teams Senior Planning Analyst Relationship Specialty Start Date End Date Mei Jesus MD [address] [place] [id number] PCP - General Pediatrics 11/27/22 02/11/23 documented as of this encounter
--- OUTSIDE RECORDS SUMMARY | 2024-07-15 08:04 | XMS_ITS | Clinical Summary ---
Author Organization [facility] Address [address] [place] [id number] Phone Care Team Providers Care Slunk Skin Curer Name Role Phone Unavailable Primary Care Provider Unavailabl e Allergies Active Allergy Reactions Criticality Noted Date Comments Amoxicillin Medications ondansetron ODT (ondansetron ODT) 8 MG disintegrating tabletIndications: Menstrual migraine without status migrainosus, not intractable Take 8mg po as needed with onset of migraine sx, can repeat in 8 hours PRN, use with other migraine medication as discussed. 6 tablet 06/15/19 22 Active Additional Information Patient not taking.Reported on 11/15/2022 albuterol HFA 108 (90 Base) MCG/ACT inhalerIndications :Breathing difficulty Inhale 2 puffs every 4 (four) hours as needed for wheezing or shortness of breath. 1 Units 06/07/19 23 Active Additional Information Patient not taking.Reported on 11/15/202205/03 1-20 MG-MCG per tablet 09/12/19 23 Active rizatriptan 10 MG tabletIndications: Menstrual migraine without status migrainosus, not intractable May repeat in 2 hours if unresolved. Do not exceed 30 mg in 24 hours. 6 tablet 02/11/20 23 Active Active Problems Problem Noted Date Diagnosed Date Right wrist pain 12/18/2021 Overview (11/15/2022): Seen [place] - compartment release done 10/2021 Had TFCC injection done 12/14/21 3rd cortisone injection in the past week Surgery done 08/09/22 in [place] Assessment & Plan (04/11/2022 10:47 AM EST): Follow up in [place] Left medial tibial stress syndrome 03/28/2020 Overview (11/15/2022): Pain L lower leg following running of 10 km race Assessment & Plan (11/15/2022 4:27 PM EDT): Refer to PT Menstrual migraine 02/23/2020 Overview (02/05/2023): Clearly is getting menstrual migraines Started OCPs and a lot better with fewer periods yearly - still gets bad BEAR with the periods though Started rizatriptan 06/14/2021 for abortive therapy of migraines Assessment & Plan (04/11/2022 10:48 AM EST): Continue with OCPs Assessment & Plan (03/28/2020 9:30 PM EST): These are better now too Assessment & Plan (02/23/2020 8:19 PM EST): See above. 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 Ferguson after visit with sports medicine d/t recurrent bilat lower leg pain after running 10 min, that resolves with rest, and then recurs again after 10-15 min of additional activity. Specialist ordered MRI and reviewed nature of this dx with plan to f/u after MRI completed. 08/2021: Post bilat 4 compartment releases/fasciotomies with DDx: recurrent chronic exertional compartment syndrome vs popliteal artery entrapment. Repeat compartemtne pressures measurements and MR noncontrast angiogram IESHA study to evaluate for these potential dx after being seen by [facility] for repeat/2nd opinion 11/2021 - had repeat releases/fasciotomies bilaterally at [facility] 05/2022 - ortho follow up in [place] - doing well, ok to return to sports, follow up 6 months. Assessment & Plan (04/11/2022 10:46 AM EST): Recently completed PT post-surgery (10/2021) for release - follow up in [place] as scheduled Assessment & Plan (03/28/2020 9:30 PM EST): See above Specific phobia 12/08/2017 Overview (04/22/2022): Patient afraid of vomiting. Sees a therapist for this. Still doing well seeing the therapist - feels it has helped though this is still an ongoing issue. 03/2022 - no therapy since pre-COVID Still having fear of vomiting/nausea that is prohibiting her from living on- campus at college 04/11/22; [facility] completed. F/u scheduled, [facility]. [facility] brief tx[facility] Assessment & Plan (05/23/2022 1:26 PM EST): Identified symptoms suggest a marked fear about a specific situation, Zunilda identified avoidance and compensatory behaviors. Reported symptoms suggest a diagnosis related to Specific Phobia. Symptoms have been persistent since a young age, are experienced daily and have impacted daily and social functioning. Follow up interventions focus on developing coping and regulation strategies would be of benefit to support identified needs, other referrals will be discussed and completed as necessary. PLAN: 1. Follow up with [facility] [place]; Vv visit scheduled, Zunilda is aware that appt can be scheduled virtual or in person. 2. Patient goal is to increase management of cognitions. 3. Behavioral Recommendations: a. Attend to scheduled appt b. Focus on strategies and topics discussed. Assessment & Plan (05/09/2022 11:16 AM EST): Identified symptoms suggest a marked fear about a specific situation, Zunilda identified avoidance and compensatory behaviors. Reported symptoms suggest a diagnosis related to Specific Phobia. Symptoms have been persistent since a young age, are experienced daily and have impacted daily and social functioning. Follow up interventions focus on developing coping and regulation strategies would be of benefit to support identified needs, other referrals will be discussed and completed as necessary. PLAN: 1. Follow up with [facility] [place]; Vv visit scheduled, Zunilda is aware that appt can be scheduled virtual or in person. 2. Patient goal is to increase management of cognitions. 3. Behavioral Recommendations: a. Attend to scheduled appt b. Focus on strategies and topics discussed. Assessment & Plan (04/22/2022 3:24 PM EST): Identified symptoms suggest a marked fear about a specific situation, Zunilda identified avoidance and compensatory behaviors. Reported symptoms suggest a diagnosis related to Specific Phobia. Symptoms have been persistent since a young age, are experienced daily and have impacted daily and social functioning. Follow up interventions focus on developing coping and regulation strategies would be of benefit to support identified needs, other referrals will be discussed and completed as necessary. PLAN: 1. Follow up with [facility] [place]; Vv visit scheduled, Zunilda is aware that appt can be scheduled virtual or in person. 2. Patient goal is to increase management of cognitions. 3. Behavioral Recommendations: a. Attend to scheduled appt Assessment & Plan (04/15/2022 3:17 PM EST): Identified symptoms suggest a marked fear about a specific situation, Zunilda identified avoidance and compensatory behaviors. Reported symptoms suggest a diagnosis related to Specific Phobia. Symptoms have been persistent since a young age, are experienced daily and have impacted daily and social functioning. Follow up interventions focus on developing coping and regulation strategies would be of benefit to support identified needs, other referrals will be discussed and completed as necessary. PLAN: 1. Follow up with [facility] [place]; Vv visit scheduled, Zunilda is aware that appt can be scheduled virtual or in person. 2. Patient goal is to increase management of cognitions. 3. Behavioral Recommendations: a. Attend to scheduled appt Assessment & Plan (04/11/2022 10:49 AM EST): Warm hand-off done - willing to re-engage with therapist for CBT Also d/w Zunilda option of medication (would be SSRI) - she is reluctant to use medication at this point Assessment & Plan (03/28/2020 9:29 PM EST): Now better, though not going to restaurants because of pandemic, feels much better about mealtime Assessment & Plan (02/23/2020 12:09 PM EST): Is definitely better now. Has done well with therapy with me Assessment & Plan (02/04/2020 4:37 PM EDT): Is doing much better now after learning self hypnosis, and too busy to worry! Assessment & Plan (12/20/2019 11:07 AM EDT): Continue with Dr. Fitch and therapy, no SI or self harm, says she is doing better overall. Assessment & Plan (10/27/2019 4:33 PM EDT): Continue to practice what I've shown you. Assessment & Plan (09/09/2019 11:41 AM EDT): Improving with suggestions from last visit. Again counseled re eating small meals if she wants, and having regular snacks Assessment & Plan (08/25/2019 12:08 PM EDT): 1. Think of the worry leading to nausea at meals as an annoying animal like a bee which you can ignore or tell to go away. 2. Eat small plates at meal times, like tapas, having healthy snacks in between. 3. Enjoy meal time with family as family time, not worrying about the eating part. Assessment & Plan (08/18/2019 4:40 PM EDT): Described about how an irrational fear can not simply be addressed through rational discussion but by reaching the subconscious as in repetition, graduated exposures, hypnotic techniques, which she is amenable to. Assessment & Plan (08/06/2019 9:41 AM EDT): Can address with hypnosis Assessment & Plan (12/17/2018 8:02 AM EDT): Continue to see the therapist you have been working with, follow up with any concerns. Resolved Problems Problem Noted Date Diagnosed Date Resolved Date Right medial tibial stress syndrome 03/28/2020 03/28/2020 Closed fracture of tooth with delayed healing 02/04/20 20 04/11/2022 Overview (02/04/2020): From grinding her teeth from stress Assessment & Plan (02/04/2020 4:39 PM EDT): See a dentist Test anxiety 08/25/2019 04/11/2022 Overview (03/28/2020): Because of perfectionism and worry about grades Assessment & Plan (03/28/2020 9:28 PM EST): Now much better, can do a big project without stress. Assessment & Plan (02/04/2020 4:37 PM EDT): Is doing better here too. Assessment & Plan (09/09/2019 11:38 AM EDT): Not an issue now Assessment & Plan (08/25/2019 12:09 PM EDT): In this instance, simply recognize that your anxiety and nausea is just a sign of you being a high achieving student; you can think of it in terms of highly competititve sports, just a sign of You wanting to do your best, and stop worrying about it, knowing it gets better right after the test. TMJ click 08/25/2019 04/11/2022 Overview (08/25/2019): Typical mild TMJ Assessment & Plan (02/04/2020 4:37 PM EDT): Still a bother. See a dentist. Assessment & Plan (10/27/2019 4:33 PM EDT): Still has, remember to practice toilet paper roll stretch Assessment & Plan (09/09/2019 11:38 AM EDT): improving Assessment & Plan (08/25/2019 12:10 PM EDT): Do stretching 30 seconds x 2 each reba with clean toilet paper roll. 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 03/28/2020 Overview (03/28/2020): Common these days, can help lead to headaches Assessment & Plan (03/28/2020 9:29 PM EST): Was better at last visit in office, posture seems good today Assessment & Plan (02/04/2020 4:32 PM EDT): better Assessment & Plan (09/09/2019 11:38 AM EDT): Encouraged to see PT, and do postural exercises Assessment & Plan (08/25/2019 12:12 PM EDT): Do exercises to correct, be aware of posture, limit unnecessary computer time Episodic tension-type headache 08/06/2019 04/11/2022 Overview (04/11/2022): also elements of migraine, runs in family, with nausea and photophobia Assessment & Plan (04/11/2022 10:45 AM EST): Continue OCPs Assessment & Plan (03/28/2020 9:27 PM EST): Much better now, off OCP's, on periactin, practicing relaxation mental imagery daily, feels less stress. Assessment & Plan (02/23/2020 12:08 PM EST): Has definitely improved, milder, not every day, definitely triggered by periods. Practice your self hypnosis, take periactin at night, consider chiropractic at [facility] with Dr. Pacheco if you would like. Assessment & Plan (02/04/2020 4:24 PM EDT): Not every day but still bothersome. Suggest the following. 1. Take the time to do the relaxation mental imagery twice daily, or AT LEAST once daily and simple deep breathing in between. 2. See the chiropractor at [facility] 3. Begin Periactin. Assessment & Plan (12/20/2019 11:12 AM EDT): Working with Dr. Fitch re: this concern. Assessment & Plan (10/27/2019 4:30 PM EDT): Still having, all day, gets severe. Will check MRI, refer to neuro, also should see PT - theo singh and ?chiropractor Assessment & Plan (09/09/2019 10:50 AM EDT): Is improving. Suggest practices self hypnosis for 10 minutes twice a day since that method has been proven to work for headaches. Take migrelief, one tab a day, increase to two if not better in two weeks. Assessment & Plan (08/26/2019 10:53 AM EDT): No signs of RESOLUTE PROFESSIONAL or other organic lesion. 1. Work on your posture, as we discussed. See PT 2. As your dad suggested, limit screen time, talk to friends via earbuds, use dark screen, good posture 3. Practice with your recordings, with good posture!. 4. Take MIGRELIEF, one tab daily Assessment & Plan (08/06/2019 9:43 AM EDT): Make sure to eat regular healthy meals, get 8-9 hours of sleep, drink a lot of fluids, get fresh air and exercise, avoid MSG, sodium nitrates, chocolate, aged cheese, caffeine. Practice with your recording I sent to you twice daily. Bilateral temporomandibular joint pain 08/06/2019 04/11/2022 Overview (12/20/2019): Referred back to PT by Dr. Fitch Assessment & Plan (02/23/2020 12:10 PM EST): Is still a problem. Practice with your jaw stretching exercises, followed by the short self hypnosis recording we made, twice daily. Assessment & Plan (02/04/2020 4:39 PM EDT): Still bothering her. See your dentist whom you will see anyway! Assessment & Plan (12/20/2019 11:12 AM EDT): Working with PT re: this. Continue in current treatment plan to see if it is successful to improve sx. Assessment & Plan (09/09/2019 11:39 AM EDT): improving Assessment & Plan (08/06/2019 9:44 AM EDT): Hold a clean toilet paper roll in your mouth for 30 seconds, x 2 each evening. Have mom massage joint. Medication overuse headache 08/06/2019 08/18/2019 Overview (08/06/2019): Is part of problem with daily ibuprofen and acetaminophen use Assessment & Plan (08/18/2019 4:41 PM EDT): Better now Assessment & Plan (08/06/2019 9:42 AM EDT): I would decrease use of ibuprofen and acetaminophen to only 1-2 doses a week, each, though you may use maximum dose each time (600mg of motrin, 1000mg of tylenol) Decreased visual acuity 12/17/2018 12/2 12/2021 Overview (12/17/2018): Wears glasses/contacts, no issues, follows with eye doctor yearly. Assessment & Plan (12/17/2018 8:08 AM EDT): Continue to follow up routinely with eye doctor for routine care. Menorrhagia with regular cycle 12/08/2017 03/28/2020 Overview (12/20/2019): 2020: Stopped taking OCPs due to headaches, but worried that heavier bleeding will return, wants to restart on OCPs and would prefer that she not get a monthly period of that the OCP she is on does not trigger BEAR. 2019: Taking a low dose OCP. Doing well, no ASE reported, wishes to stay on OCPs for bleeding management. Assessment & Plan (03/28/2020 8:12 AM EST): Bleeding better now. Assessment & Plan (02/23/2020 12:09 PM EST): Periods definitely trigger for headaches. OCP's all had side effects. Consider depo Provera, Melani can give or Nexplanon, can be implanted here by Dr. Chawla. Assessment & Plan (02/04/2020 4:40 PM EDT): Was on ocp's, then started 3 month pill, just stopped, thinking it wasn't helping headaches at all, maybe causing them Assessment & Plan (12/20/2019 11:12 AM EDT): Will switch to long cycling OCPs to see if this prevents the premenstrual/menstrual headaches, should f/u in 3-4 months to see how she is doing, sooner PRN. Proper use reviewed, more worrisome changes to watch for discussed, follow up sooner PRN. Continue to work on headaches with Dr. Fitch as needed. Assessment & Plan (12/17/2018 8:02 AM EDT): OCPs refilled, proper use reviewed, more worrisome changes to watch for discussed, follow up with additional changes or concerns. Immunizations Immunization Administration Dates Next Due DTaP 5 10/08/2005, 3,2001,07/03,2001 H1N1 03/22/2009,02/15/2009 HPV Vaccine 9 Valent 11/15/2022,05/17/2022,04/11 Hep A, ped/adol 11/22/2015,10/05/2014 Hep B, ped/adol 2001,2001,2001 Hib (PRP-T) 06/02/2002, 2,2001,05/05 IPV 10/08/2005, 2,2001,05/05 Influenza Split 01/22/2012,01/31/2011,12/13/2009 Influenza, injectable, MDCK, preservative free, quadrivalent 01/27/2018 Influenza, injectable, quadr ivalent, preservative free 01/11/2022,12/19/2020,12/17/2019,12/11,02/10/2017,03/26/2016,01/20/2015 ,01/12/2014,04/09/2013 Influenza, injectable, trivalent 009,03/16/2008,02/10/2008,03/16 MMR 10/08/2005,02/26/2002 Meningococcal B Trumenba 04/11/2022,12/19/2020 Meningococcal Conj (Menactra) MCV4P 12/08/2017,0 06/16/2013 Pneumococcal Conjugate 09/01/2002,2001,2001,05/05 Tdap 06/16/2013 Varicella 10/28/2007,02/26/2002 Family History Medical History Relation Name Comments No Known Problems Father Srikanth Ram No Known Problems Mother Rosalinda Ram No Known Problems Sister Magdalena Ram Relation Name Status Comments Father Srikanth Ram Alive Father: Alive a nd well Maternal Grandmother Materna l grandmother: Cancer -breast Mother Rosalinda Ram Alive Mother: Aliv e and well Other 1 uncle: Diabetes mellitus Other 2 Family history of Cancer -uterine Paternal Grandfather Paterna l grandfather: cardiac Paternal Grandmother Paterna l grandmother: , cardiac Sister Magdalena Ram Alive Social History Tobacco Use Types Packs/Day Years Used Date Smoking Tobacco: Never Smokeless Tobacco: Never Comments:Never smoker Alcohol Use Standard Drinks/Week Comments No 0 (1 standard drink = 0.6 oz pur e alcohol) Hunger/Food Answer Date Recorded In the last 12 months, did y ou or your family ever eat less than you felt you should because there wasn't enough money for food? No 04/04/2022 Stable Housing Answer Date Recorded Are you worried that in the next 2 months you may not have stable housing? No 04/04/2022 Transportation Concerns Answer Date Rec orded In the last 12 months, have you or your family ever had to go without healthcare because you didn't have a way to get there? No 04/04/2022 Hazards in Home Answer Date Recorded Think about the place you li ve. Do you have problems with any of the following? Pests (mice or roaches), mold, no/not working smoke detectors, water leaks, no window guards. No 2021 Financing Utilities Answer Date Recorde d In the last 12 months, has t he electric, gas, oil, or water company threatened to shut off your services in your home? No 04/04/2022 Safety at Home Answer Date Recorded Are you or your family worried about feeling saf e in your home? No 04/04/2022 Outside Support Answer Date Recorded Do you feel that you need mo re support from other people or programs to help you care for yourself or your family? No 04/04/2022 Understanding Health Concerns Answer Da te Recorded Do you need help understandi ng your or your child's healthcare needs (diagnosis, medications, plan, etc.)? No 04/04/2022 Financing Health Concerns Answer Date R ecorded In the last 12 months, was t here a time when your child needed to see a doctor or get medications or supplies but could not because of cost? No 04/04/2022 Missing School or Work Answer Date Eduard rded Did you or your child miss s chool or work because of a health problem that could have been avoided? No 04/04/2022 Comments No Sex and Gender Information Value Date Recorded Sex Assigned at Female 12/20/2019 11:20 AM EDT Legal Sex Female 5:17 PM EDT Gender Identity Female 12/12/2019 10:40 AM EDT Sexual Orientation Straight 12/17/2018 8: 03 AM EDT Last Filed Vital Signs Vital Sign Reading Time Taken Comments Blood Pressure 123/84 11/15/2022 3:55 PM EDT Pulse 78 11/15/2022 3:55 PM EDT Temperature 36.2 ??C (97.1 ??F) 06/07/2022 8:37 AM ES T Respiratory Rate - - Oxygen Saturation - - Inhaled Oxygen Concentration - - Weight 51.9 kg (114 lb 6 oz) 11/15/2022 3:55 PM EDT Height 161.3 cm (5' 3.5 ) 04/11/2022 9:52 AM EST Body Mass Index 19.94 04/11/2022 9:52 AM EST Plan of Treatment Health Maintenance Due Date Last Done Comments DTaP,Tdap,and Td Vaccines (7 - Td or Tdap) 06/17/2023 06/16/2013, 10/08/2005, 09/01/2002, Additional history exists Influenza Vaccines (#1) 2023 12/15/19 23, 01/11/2022, 12/19/2020, Additional history exists COVID-19 Vaccine (5 - 2023-2 5 season) 2023 01/25/2022, 04/17/2021, 08/08/2020, Additional history exists Hepatitis B Vaccines Completed 2001, 2001, 2001 HIB Vaccines Completed 06/02/2002, 08/13, 2001, Additional history exists Pneumococcal Vaccine Completed 09/01/2002, 2001, 2001, Additional history exists IPV Vaccines Completed 10/08/2005, 08/13, 2001, Additional history exists MMR Vaccines Completed 10/08/2005, 02/26/2002 Varicella Vaccines Completed 10/28/2007, 02/26/2002 Hepatitis A Vaccines Completed 11/22/2015, 10/06/19 15 Meningococcal Vaccine Completed 12/08/2017, 014 Men B Vaccine Completed 04/11/2022, 12/19/2020 HPV Vaccines Completed 11/15/2022, 06/2022, 04/11/2022 Procedures * Due to [place] ANT Farm law, this organization might not be sharing sensitive test results. Procedure Name Priority Date/Time Associated Diagnosis Comments CHLAMYDIA AND GONORRHEA, AMPLIFIED Routine 04/11/2022 11:14 AM EST Encounter for screening examination for chlamydial infection from Last 3 Months or Most Recently Relevant to Health Maintenance Results * Due to [place] [employer] law, this organization might not be sharing sensitive test results. * Chlamydia and Gonorrhoea, Amplified (04/11/2022 11:14 AM EST) Chlamydia Trachomatis, DNA Probe NEGATIVE (NEG) [facility] Comment: No Chlamydia Trachomatis RNA detected in this patient's sample ? (REFERENCE RANGE/NORMAL VALUE: NOT DETECTED) ? Note: This test uses part time- mediated amplification method to detect rRNA from C. Trachomatis URINE GC AMP PROBE NEGATIVE (NEG) [facility] Comment: No Neisseria Gonorrhoeae RNA detected in this patient's sample ? (REFERENCE RANGE/NORMAL VALUE: NOT DETECTED) ? NOTE: This test uses part time-mediated amplification method to detect rRNA from N.Gonorrhoeae. A negative result does not preclude infection. In the case of a negative urine result, testing of an endocervical(female) or urethral (male) specimen is recommended if there is high clinical suspicion of infection. Due to very high sensitivity of Nucleic Acid Amplification Test, false positive results may occur. Therefore, specimen handling is extremely important. In patients in whom the disease is unlikely, additional sample for testing should be considered after an initial positive result. The performance characteristics of this test have not been evaluated in children. The Aptima Combo2 assay is not intended for the evaluation of suspected sexual abuse or for other medico-legal indications. The ordering provider should assess if the patient had consensual sex without risk of sexual abuse. Consult the [facility] if needed. Contact phone number . Therapeutic failure or success cannot be determined with the Aptima Combo2 assay since nucleic acid may persist following appropriate antimicrobial therapy. The Centers for Disease Control and Prevention (CDC) recommends confirmatory retesting using culture or a different nucleic acid amplification test when positive results occur, if indicated. Testing performed or reported by [facility], a Service of [facility], [facility] [place] [address] Jeromy Casanova MD, Metal Fabricating Inspector [facility]# [id number] Urine (Urine) 04/11/2022 11: 14 AM EST 04/11/2022 7:00 PM EST us Mei Jesus MD LAB MICROBIOLOGY - GENERAL O RDERABLES Final Result [facility] from Last 3 Months or Most Recently Relevant to Health Maintenance Insurance [facility]
--- OUTSIDE RECORDS SUMMARY | 2024-07-15 08:04 | XMS_ITS | Encounter Summary ---
Author Organization [facility] Address [address] [place] [address] Phone Care Team Providers Care Ship Pilot Name Role Phone Mei Jesus MD Primary Care Provider + [phone] Reason for Visit * Reason Comments Med Refill Encounter Details Date Type Department Care Team (Late st Contact Info) Description 09/17/2017 Refill [facility] [place] [address] [place] [address] Magdalena Chavez NP [address] [place] [phone] Oral contraceptive use Social History Tobacco Use Types Packs/Day Years Used Date Smoking Tobacco: Never Comments:Never smoker Comments Unknown Sex and Gender Information Value Date Recorded Sex Assigned at Female 12/20/2019 11:20 AM EDT Legal Sex Female 5:17 PM EDT Gender Identity Female 12/12/2019 10:40 AM EDT Sexual Orientation Straight 12/17/2018 8: 03 AM EDT documented as of this encounter Miscellaneous Notes * Telephone Encounter - Shelia Matos LPN - 09/17/2017 9:11 AM EDT Refill request for Falmina. Last PE 11/28/16/ANAHI documented in this encounter Plan of Treatment Not on file documented as of this encounter Visit Diagnoses Diagnosis Oral contraceptive use documented in this encounter Care Teams Ship Pilot Relationship Specialty Start Date End Date Mei Jesus MD [address] [place] [address] PCP - General Pediatrics 11/27/22 02/11/23 documented as of this encounter
--- NOTE | 2024-07-15 08:06 | AM.OFFWIN_ITS ---
Intake Vital Signs 3 07/15/24 08:08 Weight 110 lb BP 122/76 Blood Pressure Location Lt brachial Position Sitting Intake Visit Reasons: EP ?tonsil Stone Intake Note: Patient here for tonsil stone that she noticed about 2-3 days ago. Patient Tobacco Use Status: Never used Tobacco Allergies amoxicillin Allergy (Mild, Verified 07/15/24 08:12) Rash Do you need a note to return to daycare/school/sports/work: No HPI HPI Comments 2 History of Present Illness0 Details 24 y/o female patient who presents to [facility] walk in clinic with c/o Tonsil stones right side throat. She noticed some white Material on the back of the throat 2-3 days ago. She does endorse Sore-throat. Denies fevers, chills, Nausea or vomiting. She did have her teeth Braces removed recently and today has an appointment with Dentist. [facility] Medical History (Updated 07/15/24 @ 08:36 by Zulema Peters NP) Tonsil stone Phobia Anxiety Migraine headache without aura Surgical History H/O fasciotomy H/O right wrist surgery History of surgery on lower extremity Family History Mother No problems noted. Father Arthritis Maternal Grandmother History of breast cancer Ovarian cancer Maternal Aunt History of breast cancer Social History Alcohol intake: current Alcohol intake frequency: holidays/special occasions only Patient Tobacco Use Status: Never used Tobacco Cognitive needs: No Hearing needs: No Vision needs: No Female Reproductive History Menstrual Age of Menarche: 13 Review of Systems Const All systems reviewed & are unremarkable except as noted in HPI and below Physical Exam Vital Signs: Last Vital Signs BP 122/76 07/15/24 08:08 HEENT Head: Yes normocephalic Ears: external ears normal and TM's normal bilaterally General nose exam: Normal external nose present Face and sinus: Yes sinuses nontender Mouth: tongue normal, moist mucous membranes and Abnormal oral and palatal mucosa present not erythematous Mouth/tongue images: 2 1. Small white Stone present Throat: Yes tonsils normal and Yes uvula midline Results AMB Rapid Strep 2 AMB Rapid Strep Negative Last Edit by SARAHI Marnio on 07/15/24 08:34 Assessment & Plan Assessment & Plan (1) Tonsil stone: Code(s): J35.8 - Other chronic diseases of tonsils and adenoids Plan: Educated on Proper Oral Hygiene in order to prevent stone. Rapid Strep negative. Coding Level of Care Code Est Pt Level 4 (54297) Diagnoses Tonsil stone J35.8 Time Spent (min) 20
[2024-07-15 08:08] VITALS: BP 122/76
== END 2024-07-15 08:41 | disposition home or self-care (01) ==
PROVIDERS: PCP Internal Medicine; Visit Provider Nurse Practitioner Family
DX: Z13.9 Encounter for screening, unspecified (principal); J35.8 Other chronic diseases of tonsils and adenoids

== ENCOUNTER → 2024-07-15 08:00 | Outpatient (BNVA) | payer OTHER, SELFPAY | PROVIDERS: PCP Internal Medicine; Visit Provider Nurse Practitioner Family | DX: J35.8 Other chronic diseases of tonsils and adenoids (principal) | CPT/HCPCS: 87880; 99212 ==

== ENCOUNTER 2024-07-27 13:39 | Outpatient (AMB) | payer OTHER, SELFPAY ==
[2024-07-27 13:47] VITALS: BP 110/76; PULSE 94; O2SAT 98; BMI 19.5
--- NOTE | 2024-07-27 13:47 | A.OFFPC_ITS ---
Vital Signs 07/27/24 13:47 Height 5 ft 3 in Weight 110 lb 2 oz BMI 19.5 BP 110/76 Blood Pressure Location Rt brachial Position Sitting Pulse 94 Pulse Source Pulse Oximeter Pulse Oximetry (%) 98 Oxygen Delivery Method Room Air Intake Visit Reasons: new medication management Allergies amoxicillin Allergy (Mild, Verified 07/27/24 13:53) Rash Medication List - Last Reconciled 07/27/24 by Saurabh Renee MD albuterol sulfate 90 mcg/actuation (Ventolin HFA) inhalation norethindrone-e.estradiol-iron 1 mg-20 mcg (21)/75 mg (7) (05/03 (28)) 1 tab PO DAILY rizatriptan mg PO Tobacco use date assessed: 07/27/24 Dental Screening Dental Screen Date: 07/27/24 Did you have a dental visit in the last 12 months?: Yes Did you have a dental problem in the last 6 months where you did not have access to dental care?: No Was dental information given to patient?: Patient has dentist HPI new medication management HPI Details History - The patient is a 24-year-old female pr esenting with migraine management and prescription refill. - Migraine headaches began during high s chool, at approximately age 17 or 18. - Initial migraines were temporally rela janie to the menstrual cycle. - Patient was prescribed continuous amira h control by an OBGYN to manage migraines. - Migraines occasionally triggered by we ather changes and certain foods. - Currently experiences migraines one to two times per month, particularly during the menstrual period when taking a four-day pill break. - Describes traditional migraine symptom s, differentiating them from sinus headaches. - Previously used prescribed migraine me dication with successful relief of symptoms. Rizatriptan. Problem List - Perioral Dermatitis treated by Dermato logy - Migraine Headaches - Vulvodynia/patient is looking for a pr ovider in [place] for the treatment Patient Instructions - Continue taking prescribed migraine me dication as needed at the onset of symptoms. - Contact pharmacy for medication refill s if required. - Monitor menstrual cycle and note any c orrelation with migraine occurrence. - Report any changes in migraine frequen cy or severity. Review of Systems - General: No fever no chills - Ear nose throat: No sore throat no hearing difficulty no ear pain - Cardiovascular: No syncope, no chest pain, no palpitations - Gastrointestinal: No nausea vomiting or diarrhea - Endocrine: No polyuria polydipsia no heat intolerance - Genitourinary: No dysuria , no blood in urine Physical Exam - General: No acute distress - HEENT: No acute findings - Neck: Supple - Respiratory system: Able to talk in f ull sentences, no audible wheeze - Cardiovascular: S1-S2 regular in rate and rhythm - Gastrointestinal: No pain - Extremities: No new findings - HANDMADE TILE ARTIST: Alert awake oriented x3 motor se nsory intact - Skin: Normal turgor PFSH Medical History Tonsil stone Phobia Anxiety Migraine headache without aura Surgical History H/O fasciotomy H/O right wrist surgery History of surgery on lower extremity Family History Mother No problems noted. Father Arthritis Maternal Grandmother History of breast cancer Ovarian cancer Maternal Aunt History of breast cancer Social History Housing: House Alcohol intake: current Alcohol intake frequency: holidays/special occasions only Patient Tobacco Use Status: Never used Tobacco e-Cigarette/Vaping Use: Never Used service: No Current occupational status: employed Cognitive needs: No Hearing needs: No Vision needs: No Female Reproductive History Menstrual Age of Menarche: 13 Questionnaire PHQ-9 Over the last 2 weeks, how often have you been bothered by any of the following problems? 94357 - PHQ-9 Billing: Patient declined-do not bill Source: Developed by Drs. Gilbert Pennington, Hilda Farnsworth, Markel Villatoro and colleagues, with an educational loretta from [employer]. Thrive Questionnaire Date Thrive assessed: 07/27/24 I am a: Patient What is your living situation today?: I have a steady place to live Within the past 12 months, did the food you bought not last and you didn't have the money to get more?: Never true Within the past 12 months, did you worry whether your food would run out before you got money to buy more?: Never true Do you have trouble paying for medicines?: No Do you have trouble getting transportation to medical appointments?: No Do you have trouble paying your heating and electricity bill?: No Do you have trouble taking care of your child, family member or friend?: No Do you have trouble with day-to-day activities such as bathing, preparing meals, shopping, managing finances, etc.?: No Are you currently unemployed and looking for a job?: No Are you interested in more education?: No Please select the resources that you would like help with: None Currently or been in a relationship where the following occur: No concerns reported THRIVE Score: 0 AUDIT C Alcohol Use Questionnaire (AUDIT-C) 1. How often do you have a drink containing alcohol?: 2-4 times a month 2. How many drinks containing alcohol do you have on a typical day when you are drinking?: 1 or 2 3. How often do you have six or more drinks on one occasion?: Never Total Score: 2 Score Reviewed/Action Taken: Yes TALON-7 AMB Questionnaire TALON-7 Date TALON - 7 assessed: 07/27/24 Feeling nervous, anxious, or on edge: 3 = Nearly every day Not being able to stop or control worryin = Several days Worrying too much about different things: 1 = Several days Trouble relaxin = Several days Being so restless that it is hard to sit still: 0 = Not at all Becoming easily annoyed or irritable: 1 = Several days Feeling afraid as if something awful might happen: 1 = Several days Total TALON-7 score (0-4 normal; 5-9 mild; 10-14 moderate; 15-21 severe): 8 Source: Developed by Drs. Gilbert Pennington, Hilda Farnsworth, Markel Villatoro and colleagues, with an educational loretta from [employer]. TALON-7 Assessment Billing TALON-7 Assessment Tool: TALON-7 Assessment 86301 Physical exam (Primary Care) Vital Signs: Last Vital Signs Pulse 94 07/27/24 13:47 BP 110/76 07/27/24 13:47 Pulse Ox 98 07/27/24 13:47 Oxygen Delivery Method Room Air 07/27/24 13:47 BMI result Body Mass Index 19.5 Tobacco/Smoking Status: Tobacco use Status Tobacco use date assessed 07/27/24 07/27/24 13:53 Patient Tobacco Use Status Never used Tobacco 07/27/24 13:48 e-Cigarette/Vaping Use Never Used 07/27/24 13:53 Thrive Assessment: Date of Thrive Assessment Date Thrive assessed 07/27/24 07/27/24 13:53 Currently or been in a relationship where the following occur: No concerns reported Coding Level of Care Code Est Pt Level 3 (83515) Diagnoses Migraine without aura and without status migrainosus, not intractable G43.009 Status migrainosus presence: without status migrainosus Intractability: not intractable Additional Codes TALON-7 Assessment Billing - TALON-7 Assessment Tool: TALON-7 Assessment 98252 ([id number]) Assessment & Plan Assessment & Plan (1) Migraine headache without aura: Code(s): G43.009 - Migraine without aura, not intractable, without status migrainosus Category: Medical Qualifiers: Status migrainosus presence: without status migrainosus Intractability: not intractable Qualified Code(s): G43.009 - Migraine without aura, not intractable, without status migrainosus Plan History - The patient is a 24-year-old female presenting with migraine management and prescription refill. - Migraine headaches began during high school, at approximately age 17 or 18. - Initial migraines were temporally related to the menstrual cycle. - Patient was prescribed continuous control by an OBGYN to manage migraines. - Migraines occasionally triggered by weather changes and certain foods. - Currently experiences migraines one to two times per month, particularly during the menstrual period when taking a four-day pill break. - Describes traditional migraine symptoms, differentiating them from sinus he adaches. - Previously used prescribed migraine medication with successful relief of symptoms. Rizatriptan. 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 - Contact pharmacy for medication refills if required. - Monitor menstrual cycle and note any correlation with migraine occurrence. - Report any changes in migraine frequency or severity. Medications: Changed From rizatriptan PO To rizatriptan 10 mg PO ONCE 30 days 30 tabs 0RF
--- OUTSIDE RECORDS SUMMARY | 2024-07-27 16:46 | XMS_ITS | Encounter Summary ---
Author Organization [facility] Address [address] [place] [address] Phone Care Team Providers Care Latex Ribbon Machine Operator Name Role Phone Mei Jesus MD Primary Care Provider + [phone] Reason for Visit * Reason Comments Med Refill Encounter Details Date Type Department Care Team (Late st Contact Info) Description 01/10/2017 Refill [facility] [place] [address] [place] [address] Magdalena Chavez NP [address] [address] Oral contraceptive use (Primary Dx) Social History [...] Primary documented in this encounter Care Teams Latex Ribbon Machine Operator Relationship Specialty Start Date End Date Mei Jesus MD [address] [place] [address] PCP - General Pediatrics 11/27/22 02/11/23 documented as of this encounter
--- OUTSIDE RECORDS SUMMARY | 2024-07-27 16:46 | XMS_ITS | Encounter Summary ---
Author Organization [facility] Address [address] [place] [address] Phone Care Team Providers Care Control Manager Name Role Phone Mei Jesus MD Primary Care Provider [phone] Encounter Details Date Type Department Care Team (Late st Contact Info) Description 09/01/2009 Documentation [facility] Family Medicine [address] [place] [address] Family Medicine, Physician [address] [place], [place] [id number] Social History Tobacco Use Types Packs/Day Years [...] on filedocumented in this encounter Care Teams Control Manager Relationship Specialty Start Date End Date Mei Jesus MD [address] [place] [address] PCP - General Pediatrics 11/27/22 02/11/23 documented as of this encounter
--- OUTSIDE RECORDS SUMMARY | 2024-07-27 16:46 | XMS_ITS | Encounter Summary ---
Author Organization [facility] Address [address] [place] [address] Phone Care Team Providers Care Practice Assistant Name Role Phone Mei Jesus MD Primary Care Provider Encounter Details Date Type Department Care Team (Late st Contact Info) Description 11/28/2016 Conversion Encounter [facility] [address] [place] [address] Social History Tobacco Use Types Packs/Day Years [...] on filedocumented in this encounter Care Teams Practice Assistant Relationship Specialty Start Date End Date Mei Jesus MD [address] [place] [address] PCP - General Pediatrics 11/27/22 02/11/23 documented as of this encounter
--- OUTSIDE RECORDS SUMMARY | 2024-07-27 16:46 | XMS_ITS | Encounter Summary ---
Author Organization [facility] Address [address] [place] [address] Phone Care Team Providers Care Trust Accounts Supervisor Name Role Phone Mei Jesus MD Primary Care Provider + [phone] Reason for Visit * Reason Comments Med Refill Encounter Details Date Type Department Care Team (Late st Contact Info) Description 09/17/2017 Refill [facility] [place] [address] [place] [address] Magdalena Chavez NP [address] [place] [address] Oral contraceptive use Social History Tobacco Use [...] use documented in this encounter Care Teams Trust Accounts Supervisor Relationship Specialty Start Date End Date Mei Jesus MD [address] [place] [address] PCP - General Pediatrics 11/27/22 02/11/23 documented as of this encounter
--- OUTSIDE RECORDS SUMMARY | 2024-07-27 16:46 | XMS_ITS | Data Portability ---
Author Organization [facility], [address] Address [address] [place] [address] Assessment Encounter Date Assessment Date Assessment LastModified [...] recorded. Referral orthopedic surgeon referral 2023 024 [facility] Not available 14:49:54 Procedures None recorded. Surgeries None recorded. Imaging XR, hand, 3 or more view 2023 024 [email or web address], [address] [place] [address], [address], 4 08:25:05 XR, hand, 3 or more view - right hand , right pinky finger pain, injury, bruising and obvious deformity 2023 024 [email or web address] [facility] [place], [address] [facility], [address], [address], 4 08:25:05 Medication Orders fexofenadi ne-pseudoe phedrine ER 180 mg-240 mg tablet,ext .release 24 hr 2022 023 MAYR B[facility], [address] [place], [address], 4 19:18:29 prednisone 20 mg tablet 2022 023 [facility], [address] [place], [address], 19:18:31 Allergy Relief (fluticaso ne) 50 mcg/actuat ion nasal spray,susp ension 2022 023 [facility], [address] [place], [address], 19:18:26 Patient TargetsNo targets recorded. Patient Instructions Encounter Date Encounter Id Patient Instructions Last Modified By Organization Details Last Modified Time 09/18/2022 [id number] earache: care instructions [email or web address] Not available 09/18/2022 [...] care for yourself at home? Take an nxoo-fmw-jbysjzv pain medicine. Avoid Ibuprofen, Aleve and Aspirin if . If the doctor prescribed antibiotics, take them as directed. Do not stop taking them just because you feel better. You need to take the full course of antibiotics. Be careful when taking tqys-fnn-nhgpwub cold or influenza (flu) medicines and Tylenol [...] congestion worse. 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 PA - [facility] 3 08:29:37 [...] e) 50 mcg/actuati on nasal spray,suspe nsion [place] 1 spray every day by intranasa l [...] Updated DateTime 3 160.02 cm 20.4 kg/m2 00892.1 2 g 100 % 100 % 86 /min 18 /min 97.9 [degF] 121 mm[Hg] 82 mm[Hg] CHRISTOPHER VANDA PA - [facility] 3 08:33:57 Date Recorded Body height Body mass index (BMI) Body weight Pain severity - 0-10 verbal numeric rating [Score] - Reported Respiratory rate Body temperature Oxygen saturation Oxygen saturation in Arterial blood by Pulse oximetry Heart rate Systolic blood pressure Diastolic blood pressure Provider Name and Address Organization Details Last Updated DateTime 4 160.02 cm 20.4 kg/m2 35475.1 2 g 3 16 /min 97.7 [degF] 100 % 100 % 80 /min 117 mm[Hg] 70 mm[Hg] HERNAN LANGE PA - [facility] 4 19:21:03 Social History Question Answer Notes LastModified by Vimessa ion Details LastModified Time Tobacco Smoking Status Never Smoker CHRISTOPHER lindsey [facility] 09/18/2022 08:31:38 What Is Your Level [...] SNOMED-CT Code Diagnosis ICD10 Code Diagnosis Note [id number] [address] [address] 04/30/2016 18:12:39 04/30/2016 19:13:[id number] [address] [address] 01/26/2016 18:18:55 01/26/2016 19:05:[id number] [address] 01/29/2016 16:27:05 01/29/2016 16:47:15 [id number] [address] [place] [address] 12/23/2021 09:41:22 12/23/2021 10:05:37 [id number] [address] [facility] [place] [address] 01/20/2020 14:24:46 01/20/2020 15:46:09 [id number] [address] [facility] [place] [address] 05/15/2019 11:28:14 05/15/2019 11:57:46 [id number] [address] [facility] [place] [address] 06/27/2019 09:14:26 06/27/2019 09:46:15 [id number] [address] [facility] [place] [address] 05/26/2019 08:53:30 05/26/2019 09:19:33 [id number] [address] [facility] [place] [address] 05/18/2019 08:52:36 05/18/2019 09:38:37 [id number] [address] [facility] [place] [address] 06/26/2019 11:35:44 06/26/2019 12:12:01 [id number] [address] [facility] [place] [address] 04/18/2019 08:49:40 04/18/2019 09:22:33 [id number] Wade Brown NP [address] [facility] [place] [address] 09/18/2022 08:11:58 09/18/2022 09:22:25 Acute sinusitis 91696913 J01.90 [id number] LOY CARBALLO NP [address] [place] [address] 07/26/2023 17:55:49 07/30/2023 14:49:53 Injury of finger 54144561 S69.91XA Pain in finger 06040591 M79.644 Health Concerns Section Related Observation LastModified by Organization Detai ls LastModified Time None Recorded Concern Status LastModified by Organization Details LastModified Time None Recorded Advance Directives Directive None Recorded Payers Encounter Date Sequence Insurance Name Policy Number Policy Allen Covered Member ID Allen Member ID Guarantor Name 06/27/2019 1 FOR[facility]LY [facility] TOGETHER WITH [employer] (MEDICAID HMO) [id number] Zunilda Leanna [id number] Zunilda Leanna 01/20/2020 1 [facility] allyDVM [facility] TOGETHER WITH [employer] (MEDICAID HMO) [id number] Zunilda Lalason [id number] Zunilda Leanna 12/23/2021 1 [facility] TOGETHER WITH [employer] (MEDICAID HMO) [id number] Zunilda Lalason [id number] Zunilda Leanna 09/18/2022 2 [facility] (MEDICAID HMO) Zunilda Lalason [id number] Zunilda Ram 07/26/2023 1 [facility] - [employer] (MEDICAID REPLACEMENT - HMO) [id number] Zunildaisai Ram [id number] Zunilda Lalason Notes Date Note Type Note [...] Wade Brown NP [address] [place], [address], [employer] 09/18/2022 09:15:38 07/26/2023 text/html Finger PainRepor janie bypatient.source of patient rnqagvlcguw7he finger pain laceration, bruising was playing lacrose, was stuck by another player has mild pain, no tingling or numbness to tip of pinky finger Locationlocation: right; [place];proximal phalanx; pain, deformity, bruising proximal aspect Neurovascular Status:color change in affected finger; no numbness or tingling Symptoms:pain with ROM;swelling;bruising;l aceration/abrasion LOY CARBALLO NP [address] [place], [address], [employer] 07/26/2023 20:35:47 OBGyn Episode No OBEpisode recorded.
--- OUTSIDE RECORDS SUMMARY | 2024-07-27 16:46 | XMS_ITS | Clinical Summary ---
Author Organization [facility] Address [address] [place] [address] Phone Care Team Providers Care Customer Resource Specialist Name Role Phone Unavailable Primary Care Provider [...] Right wrist pain 12/18/2021 Overview (11/15/2022): Seen [place] - compartment release done 10/2021 Had TFCC injection done 12/14/21 3rd cortisone injection in the past week Surgery done 08/09/22 in [place] Assessment & Plan (04/11/2022 10:47 AM EST): Follow up in [place] Left medial tibial stress syndrome 03/28/2020 Overview [...] these potential dx after being seen by [facility] for repeat/2nd opinion 11/2021 - had repeat releases/fasciotomies bilaterally at [facility] 05/2022 - ortho follow up in [place] - doing well, ok to return to sports, follow up 6 months. Assessment & Plan (04/11/2022 10:46 AM EST): Recently completed PT post-surgery (10/2021) for release - follow up in [place] as scheduled Assessment & Plan (03/28/2020 9:30 [...] completed. F/u scheduled, brief tx[facility]. F/u scheduled, brief txMaria Luna [...] as necessary. PLAN: 1. Follow up with [facility]; Vv visit scheduled, Zunilda is aware that [...] as necessary. PLAN: 1. Follow up with [facility]; Vv visit scheduled, Zunilda is aware that [...] as necessary. PLAN: 1. Follow up with [facility]; Vv visit scheduled, Zunilda is aware that [...] as necessary. PLAN: 1. Follow up with [facility]; Vv visit scheduled, Zunilda is aware that [...] Do stretching 30 seconds x 2 each rbea with clean toilet paper roll. See PT [...] take periactin at night, consider chiropractic at [facility] with Dr. Pacheco if you would like. Assessment & Plan (02/04/2020 4:24 PM EDT): Not every day but still bothersome. Suggest the following. 1. Take the time to do the relaxation mental imagery twice daily, or AT LEAST once daily and simple deep breathing in between. 2. See the chiropractor at [facility] 3. Begin Periactin. Assessment & [...] (08/26/2019 10:53 AM EDT): No signs of IT SUPPORT MANAGER or other organic lesion. 1. Work on [...] 06/2022, 04/11/2022 Procedures * Due to [place] [employer] law, this organization might not be sharing sensitive test results. Procedure Name Priority Date/Time Associated Diagnosis Comments CHLAMYDIA AND GONORRHEA, AMPLIFIED Routine 04/11/2022 11:14 AM EST Encounter for screening examination for chlamydial infection from Last 3 Months or Most Recently Relevant to Health Maintenance Results * Due to [place] [employer] law, this organization might not be sharing sensitive test results. * Chlamydia and Gonorrhoea, Amplified (04/11/2022 11:14 AM EST) Chlamydia Trachomatis, DNA Probe NEGATIVE (NEG) [facility] Comment: No Chlamydia Trachomatis RNA detected in this patient's sample ? (REFERENCE RANGE/NORMAL VALUE: NOT DETECTED) ? Note: This test uses toy mechanic- mediated amplification method to detect rRNA from C. Trachomatis URINE GC AMP PROBE NEGATIVE (NEG) [facility] Comment: No Neisseria Gonorrhoeae RNA detected in this patient's sample ? (REFERENCE RANGE/NORMAL VALUE: NOT DETECTED) ? NOTE: This test uses toy mechanic-mediated amplification method to detect rRNA from N.Gonorrhoeae. [...] without risk of sexual abuse. Consult the [facility] if needed. Contact phone number . Therapeutic failure or success cannot be determined with the Aptima Combo2 assay since nucleic acid may persist following appropriate antimicrobial therapy. The Centers for Disease Control and Prevention (CDC) recommends confirmatory retesting using culture or a different nucleic acid amplification test when positive results occur, if indicated. Testing performed or reported by [facility], a Service of [facility], [facility] [place] [address] Jeormy Casanova MD, Typewriter Aligner [facility]# [id number] Urine (Urine) 04/11/2022 11: 14 AM EST 04/11/2022 7:00 PM EST us Mei Jesus MD LAB MICROBIOLOGY - GENERAL O RDERABLES Final Result [facility] from Last 3 Months or Most Recently Relevant to Health Maintenance Insurance [facility] NON PCC [facility] ACO [facility] Address: [address] [address] [place] [address]
--- OUTSIDE RECORDS SUMMARY | 2024-07-27 16:46 | XMS_ITS | Encounter Summary ---
Author Organization [facility] Address [address] [place] [address] Phone Care Team Providers Care Ground Crew Lines Person Name Role Phone Mei Jesus MD Primary Care Provider Encounter Details Date Type Department Care Team (Late st Contact Info) Description 02/27/2016 Documentation [facility] Family Medicine [address] [place], [place] [phone] Family Medicine, Physician [address] [place], [place] [address] Social History Tobacco Use Types Packs/Day Years [...] on filedocumented in this encounter Care Teams Ground Crew Lines Person Relationship Specialty Start Date End Date Mei Jesus MD [address] [place] [address] PCP - General Pediatrics 11/27/22 02/11/23 documented as of this encounter
== END 2024-07-27 14:38 | disposition home or self-care (01) ==
LOC: HO.HMCC 13:39
PROVIDERS: PCP Internal Medicine; Visit Provider Internal Medicine
DX: G43.009 Migraine without aura, not intractable, without status migrainosus (principal)

== ENCOUNTER → 2024-07-27 13:39 | Outpatient (BNVA) | payer OTHER, SELFPAY | PROVIDERS: PCP Internal Medicine; Visit Provider Internal Medicine | DX: G43.009 Migraine without aura, not intractable, without status migrainosus (principal) | CPT/HCPCS: 96127; 99212 ==

== ENCOUNTER 2024-08-09 08:24 | Outpatient (REF) | payer OTHER, SELFPAY ==
--- NOTE | ~2024-08-09 | US_ITS ---
EXAMINATION: US DIAGNOSTIC ULTRASOUND BREAST, LEFT CLINICAL INFORMATION: 24-year-old female with left breast ultrasound follow-up for solid mass at 2:00 2 cm from the nipple.. COMPARISON: Comparison is made with relevant prior imaging. TECHNIQUE: Ultrasound of the breast is performed with real-time guadarrama scale imaging and color Doppler. FINDINGS: Targeted color Doppler ultrasound scanning at 2:00 2 cm from nipple again demonstrates a hypoechoic oval circumscribed solid mass measuring 10 x 10 x 8 mm which is not significantly changed from prior ultrasound. Results are discussed with the patient at time of visit. US/US breast LT limited mamm only IMPRESSION: Hypoechoic oval solid mass at 2:00 2 cm from nipple unchanged from prior ultrasound 6 months ago. Probably benign. Recommend 6 month follow-up ultrasound for further evaluation of stability. ASSESSMENT: BI-RADS 3: Probably Benign RECOMMENDATION: Diagnostic in 6 months. This patient's information was entered into a reminder system with a target due date for their next mammogram. Electronically signed by: Herlinda De La Fuente DO 08/09/2024 11:00 AM EDT
--- OUTSIDE RECORDS SUMMARY | 2024-08-09 08:48 | XMS_ITS | Data Portability ---
Author Organization PIETER Martinez s, [address] Address [address] [place] [address] Assessment Encounter Date Assessment Date Assessment LastModified [...] recorded. Referral [facility]opedic surgeon [facility]24 [facility] Not available 14:49:54 Procedures None recorded. Surgeries None recorded. Imaging XR, hand, 3 or more view 2023 024 [email or web address], [address] [place] [address], [address], 4 08:25:05 XR, hand, 3 or more view - right hand , right pinky finger pain, injury, bruising and obvious deformity 2023 024 [email or web address] [facility] [place], [address] [facility], [address], [address], 4 08:25:05 Medication Orders fexofenadi ne-pseudoe phedrine ER 180 mg-240 mg tablet,ext .release 24 hr 2022 023 MARY BETH [facility], [address] [place], [address], 4 19:18:29 prednisone 20 mg tablet [address] [facility], [address] [place], [address], 19:18:31 Allergy Relief (fluticaso ne) 50 mcg/actuat ion nasal spray,susp ension [address] [facility], [address] [place], [address], 19:18:26 Patient TargetsNo targets recorded. Patient Instructions Encounter Date Encounter Id Patient Instructions Last Modified By Organization Details Last Modified Time 09/18/2022 [id number] earache: care instructions [email or web address] Not available 09/18/2022 [...] care for yourself at home? Take an xxkg-uzr-brrrnon pain medicine. Avoid Ibuprofen, Aleve and Aspirin if . If the doctor prescribed antibiotics, take them as directed. Do not stop taking them just because you feel better. You need to take the full course of antibiotics. Be careful when taking hhdh-plq-spimgmd cold or influenza (flu) medicines and Tylenol [...] congestion worse. 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 543721760 Active 2022 CHRISTOPHER lindsey PA - [facility] 3 08:31:22 Injury of finger 15152787 Active 2023 LOY CARBALLO NP [address] [place], [address] [facility] PA Bertin [facility] 4 19:59:33 Pain in finger 48461542 Active 2023 [place], [address] , [place] - [facility] 4 20:06:37 [...] Name and Address Organization Details Recorded Time 777141 amoxicill in medicatio n rash Not available Not available 09/18/2022 723 [facility]Norm CHRISTOPHER [place] [facility] PA - [facility] 3 [...] e) 50 mcg/actuati on nasal spray,suspe nsion Dalton 1 spray every day by intranasa l [...] Updated DateTime 3 160.02 cm 20.4 kg/m2 61300.1 2 g 100 % 100 % 86 /min 18 /min 97.9 [degF] 121 mm[Hg] 82 mm[Hg] CHRISTOPHER VANDA PA - [facility] 3 08:33:57 Date Recorded Body height Body mass index (BMI) Body weight Pain severity - 0-10 verbal numeric rating [Score] - Reported Respiratory rate Body temperature Oxygen saturation Oxygen saturation in Arterial blood by Pulse oximetry Heart rate Systolic blood pressure Diastolic blood pressure Provider Name and Address Organization Details Last Updated DateTime 4 160.02 cm 20.4 kg/m2 12446.1 2 g 3 16 /min 97.7 [degF] 100 % 100 % 80 /min 117 mm[Hg] 70 mm[Hg] HERNAN LANGE PA - [facility] 4 19:21:03 Social History Question Answer Notes LastModified by proteonomix ion Details LastModified Time Tobacco Smoking Status Never Smoker CHRISTOPHER lindsey [facility] 09/18/2022 08:31:38 What Is Your Level [...] PF, 30 mcg/0.3 mL dose 2 completed CHRSITOPHER GOODHIND null, PA - [facility] 09/18/2022 [...] SNOMED-CT Code Diagnosis ICD10 Code Diagnosis Note [id number] [address] [address] 04/30/2016 18:12:39 04/30/2016 19:13:[address] [id number] [address] [address] 01/26/2016 18:18:55 01/26/2016 19:05:[id number] [address] 01/29/2016 16:27:05 01/29/2016 16:47:15 [id number] [place] [address] 12/23/2021 09:41:22 12/23/2021 10:05:37 [id number] [address] [facility] [place] [address] 01/20/2020 14:24:46 01/20/2020 15:46:09 [id number] [address] [facility] [place] [address] 05/15/2019 11:28:14 05/15/2019 11:57:46 [id number] [address] [facility] [place] [address] 06/27/2019 09:14:26 06/27/2019 09:46:15 [id number] [address] [facility] [place] [address] 05/26/2019 08:53:30 05/26/2019 09:19:33 [id number] [address] [facility] [place] [address] 05/18/2019 08:52:36 05/18/2019 09:38:37 [id number] [address] [facility] [place] [address] 06/26/2019 11:35:44 06/26/2019 12:12:01 [id number] [address] [facility] [place] [address] 04/18/2019 08:49:40 04/18/2019 09:22:33 [id number] Wade Brown NP [address] [facility] [place] [address] 09/18/2022 08:11:58 09/18/2022 09:22:25 Acute sinusitis 84370728 J01.90 [id number] LOY CARBALLO NP [address] [place] [address] 07/26/2023 17:55:49 07/30/2023 14:49:53 Injury of finger 96618280 S69.91XA Pain in finger 70841503 M79.644 Health Concerns Section Related Observation LastModified by Organization Detai ls LastModified Time None Recorded Concern Status LastModified by Organization Details LastModified Time None Recorded Advance Directives Directive None Recorded Payers Encounter Date Sequence Insurance Name Policy Number Policy Allen Covered Member ID Allen Member ID Guarantor Name 06/27/2019 1 [facility] TOGETHER WITH [facility] ACO (MEDICAID HMO) [id number] Zunilda Leanna [id number] Zunilda Leanna 01/20/2020 1 [facility] [employer] [facility] TOGETHER WITH [facility] A[facility] (MEDICAID HMO) [id number] Zunilda Lalason [id number] Zunilda Leanna 12/23/2021 1 [facility] TOGETHER WITH [facility] A[facility] (MEDICAID HMO) [id number] Zunilda Lalason [id number] Zunilda Leanna 09/18/2022 2 [facility] PL[facility] (MEDICAID HMO) Zunilda Lalason [id number] Zunilda Ram 07/26/2023 1 [facility] ACO (MEDICAID REPLACEMENT - HMO) [id number] Zunildaisai Ram [id number] Zunilda Lalason Notes Date Note Type Note [...] Wade Brown NP [address] [place], [address], [employer]codes[employer]ress 09/18/2022 09:15:38 07/26/2023 text/html Finger PainRepor janie bypatient.source of patient [id number] finger pain laceration, bruising was playing lacrose, was stuck by another player has mild pain, no tingling or numbness to tip of pinky finger Locationlocation: right; [place];proximal phalanx; pain, deformity, bruising proximal aspect Neurovascular Status:color change in affected finger; no numbness or tingling Symptoms:pain with ROM;swelling;bruising;l aceration/abrasion LOY CARBALLO NP [address] [place], [address], [employer]codes[employer]ress 07/26/2023 20:35:47 OBGyn Episode No OBEpisode recorded.
--- OUTSIDE RECORDS SUMMARY | 2024-08-09 08:48 | XMS_ITS | Encounter Summary ---
Author Organization [facility] Address [address] [place] [address] Phone Care Team Providers Care Glass Bender Name Role Phone Mei Jesus MD Primary Care Provider + [phone] Reason for Visit * Reason Comments Med Refill Encounter Details Date Type Department Care Team (Late st Contact Info) Description 01/10/2017 Refill [facility] [address] [place] [address] Magdalena Chavez NP [address] [address] Oral contraceptive use (Primary Dx) Social History [...] Primary documented in this encounter Care Teams Glass Bender Relationship Specialty Start Date End Date Mei Jesus MD [address] [place] [address] PCP - General Pediatrics 11/27/22 02/11/23 documented as of this encounter
--- OUTSIDE RECORDS SUMMARY | 2024-08-09 08:48 | XMS_ITS | Encounter Summary ---
Author Organization [facility] Address [address] [place] [address] Phone Care Team Providers Care Managing Consultant Clinical Professor Name Role Phone Mei Jesus MD Primary Care Provider Encounter Details Date Type Department Care Team (Late st Contact Info) Description 11/28/2016 Conversion Encounter [facility] [address] [place] [address] Social History Tobacco Use Types Packs/Day Years [...] on filedocumented in this encounter Care Teams Managing Consultant Clinical Professor Relationship Specialty Start Date End Date Mei Jesus MD [address] [place] [address] PCP - General Pediatrics 11/27/22 02/11/23 documented as of this encounter
--- OUTSIDE RECORDS SUMMARY | 2024-08-09 08:48 | XMS_ITS | Encounter Summary ---
Author Organization [facility] Address [address] [place] [address] Phone Care Team Providers Care Finance Controller Name Role Phone Mei Jesus MD Primary Care Provider [phone] Encounter Details Date Type Department Care Team (Late st Contact Info) Description 09/01/2009 Documentation [facility] Family Medicine [address] [place] [address] Family Medicine, Physician [address], [place] [phone] Social History Tobacco Use Types Packs/Day Years [...] on filedocumented in this encounter Care Teams Finance Controller Relationship Specialty Start Date End Date Mei Jesus MD [address] [place] [address] PCP - General Pediatrics 11/27/22 02/11/23 documented as of this encounter
--- OUTSIDE RECORDS SUMMARY | 2024-08-09 08:48 | XMS_ITS | Encounter Summary ---
Author Organization [facility] Address [address] [place] [address] Phone Care Team Providers Care Micro Lab Analyst Name Role Phone Mei Jesus MD Primary Care Provider + [phone] Reason for Visit * Reason Comments Med Refill Encounter Details Date Type Department Care Team (Late st Contact Info) Description 09/17/2017 Refill [facility] [address] [place] [address] Magdalena Chavez NP [address] [place] [address] Oral contraceptive use Social History Tobacco Use [...] use documented in this encounter Care Teams Micro Lab Analyst Relationship Specialty Start Date End Date Mei Jesus MD [address] [place] [address] PCP - General Pediatrics 11/27/22 02/11/23 documented as of this encounter
--- OUTSIDE RECORDS SUMMARY | 2024-08-09 08:48 | XMS_ITS | Clinical Summary ---
Author Organization [facility] Address [address] [place] [address] Phone Care Team Providers Care Vocational Training Instructor Name Role Phone Unavailable Primary Care Provider [...] Right wrist pain 12/18/2021 Overview (11/15/2022): Seen [place] - compartment release done 10/2021 Had TFCC injection done 12/14/21 3rd cortisone injection in the past week Surgery done 08/09/22 in [place] Assessment & Plan (04/11/2022 10:47 AM EST): Follow up in [place] Left medial tibial stress syndrome 03/28/2020 Overview [...] these potential dx after being seen by [facility] for repeat/2nd opinion 11/2021 - had repeat releases/fasciotomies bilaterally at [facility] 05/2022 - ortho follow up in [place] - doing well, ok to return to sports, follow up 6 months. Assessment & Plan (04/11/2022 10:46 AM EST): Recently completed PT post-surgery (10/2021) for release - follow up in [place] as scheduled Assessment & Plan (03/28/2020 9:30 [...] completed. F/u scheduled, brief [facility]. F/u scheduled, brief [...] necessary. PLAN: 1. Follow up with [facility]; Vv visit scheduled, Zunilda is aware that [...] necessary. PLAN: 1. Follow up with [facility]; Vv visit scheduled, Zunilda is aware that [...] necessary. PLAN: 1. Follow up with [facility]; Vv visit scheduled, Zunilda is aware that [...] necessary. PLAN: 1. Follow up with [facility]; Vv visit scheduled, Zunilda is aware that [...] take periactin at night, consider chiropractic at [facility] with Dr. Pacheco if you would like. Assessment & Plan (02/04/2020 4:24 PM EDT): Not every day but still bothersome. Suggest the following. 1. Take the time to do the relaxation mental imagery twice daily, or AT LEAST once daily and simple deep breathing in between. 2. See the chiropractor at [facility] 3. Begin Periactin. Assessment & [...] (08/26/2019 10:53 AM EDT): No signs of BELT REPAIRER or other organic lesion. 1. Work on [...] 11/15/2022, 06/2022, 04/11/2022 Procedures * Due to [place] [employer] law, this organization might not be sharing sensitive test results. Procedure Name Priority Date/Time Associated Diagnosis Comments CHLAMYDIA AND GONORRHEA, AMPLIFIED Routine 04/11/2022 11:14 AM EST Encounter for screening examination for chlamydial infection from Last 3 Months or Most Recently Relevant to Health Maintenance Results * Due to [place] [employer] law, this organization might not be sharing sensitive test results. * Chlamydia and Gonorrhoea, Amplified (04/11/2022 11:14 AM EST) Chlamydia Trachomatis, DNA Probe NEGATIVE (NEG) [facility] Comment: No Chlamydia Trachomatis RNA detected in this patient's sample ? (REFERENCE RANGE/NORMAL VALUE: NOT DETECTED) ? Note: This test uses christmas tree grader- mediated amplification method to detect rRNA from C. Trachomatis URINE GC AMP PROBE NEGATIVE (NEG) [facility] Comment: No Neisseria Gonorrhoeae RNA detected in this patient's sample ? (REFERENCE RANGE/NORMAL VALUE: NOT DETECTED) ? NOTE: This test uses christmas tree grader-mediated amplification method to detect rRNA from N.Gonorrhoeae. [...] without risk of sexual abuse. Consult the [facility] if needed. Contact phone number . Therapeutic failure or success cannot be determined with the Aptima Combo2 assay since nucleic acid may persist following appropriate antimicrobial therapy. The Centers for Disease Control and Prevention (CDC) recommends confirmatory retesting using culture or a different nucleic acid amplification test when positive results occur, if indicated. Testing performed or reported by [facility], a Service of [facility], [facility] [place] [address] Jeromy Casanova MD, Fisher Mussel [facility]# [id number] Urine (Urine) 04/11/2022 11: 14 AM EST 04/11/2022 7:00 PM EST us Mei Jesus MD LAB MICROBIOLOGY - GENERAL O RDERABLES Final Result [facility] from Last 3 Months or Most Recently Relevant to Health Maintenance Insurance [facility] NON PCC [facility] ACO [facility] Address: [address] [address] [place] [address]
--- OUTSIDE RECORDS SUMMARY | 2024-08-09 08:48 | XMS_ITS | Encounter Summary ---
Author Organization [facility] Address [address] [place] [address] Phone Care Team Providers Care Carbon Plant Grinder Name Role Phone Mei Jesus MD Primary Care Provider Encounter Details Date Type Department Care Team (Late st Contact Info) Description 02/27/2016 Documentation [facility] [place] Medicine [address] [place], [place] [phone] Family Medicine, Physician [address] [place], [place] [phone] Social History Tobacco Use Types Packs/Day Years [...] on filedocumented in this encounter Care Teams Carbon Plant Grinder Relationship Specialty Start Date End Date Mei Jesus MD [address] [place] [address] PCP - General Pediatrics 11/27/22 02/11/23 documented as of this encounter
== END 2024-08-09 08:25 | disposition home or self-care (01) ==
LOC: HO.MAMMO 08:24
PROVIDERS: PCP Internal Medicine; Visit Provider Internal Medicine
DX: R92.2 Inconclusive mammogram (principal)
CPT/HCPCS: 76642

== ENCOUNTER → 2024-08-09 08:30 | Outpatient (BNV) | payer OTHER, SELFPAY | PROVIDERS: PCP Internal Medicine; Visit Provider Internal Medicine | DX: N63.21 Unspecified lump in the left breast, upper outer quadrant (principal) | CPT/HCPCS: 76642 ==

== ENCOUNTER 2024-09-14 09:04 | Outpatient (AMB) | payer OTHER, SELFPAY ==
--- NOTE | 2024-09-14 09:13 | A.OFFVIS_ITS ---
Vital Signs 09/14/24 09:18 Height 5 ft 3 in Weight 109 lb 2 oz BMI 19.3 BP 130/73 Blood Pressure Location Lt brachial Position Sitting Pulse 75 Intake Visit Reasons: 6 mth follow up lump unspecified Intake Note: Patient is seen in office for 6 month follow up visit, breast exam. Pt c/o: still feel it when pressing on the left breast feels a lump, denies any other concerns u/s B:08/09/24 Unix Consultant Required: No Global Compensation Director: Global Compensation Director Present Accompanied by: Self / Same As Patient Allergies amoxicillin Allergy (Mild, Verified 09/14/24 09:19) Rash Medication List - Last Reconciled 09/14/24 by Nathaniel Carlos MD albuterol sulfate 90 mcg/actuation (Ventolin HFA) inhalation norethindrone-e.estradiol-iron 1 mg-20 mcg ()/75 mg (7) (05/03 ()) 1 tab PO DAILY rizatriptan 10 mg PO ONCE 30 days HPI Comments Details: 24-year-old female patient returns for follow-up examination of a left breast lump. She was previously evaluated approximately 6 months ago and underwent ultrasound of the left breast. This confirmed a benign-appearing lump corresponding to the palpable lump most consistent with a fibroadenoma. On examination at that time she was noted to have a smooth mobile lump most consistent with a fibroadenoma with no overlying skin changes. Since her last visit she denies any significant changes. She is still able to feel it and does have a small amount of discomfort with palpation. A repeat ultrasound performed on 08/09/2024 revealed no change in the size of this fibroadenoma. She is scheduled for a follow-up ultrasound in 02/10/2025. [facility] Medical History Tonsil stone Phobia Anxiety Migraine headache without aura Surgical History H/O fasciotomy H/O right wrist surgery History of surgery on lower extremity Family History Mother No problems noted. Father Arthritis Maternal Grandmother History of breast cancer Ovarian cancer Maternal Aunt History of breast cancer Social History Housing: House Alcohol intake: current Alcohol intake frequency: holidays/special occasions only Patient Tobacco Use Status: Never used Tobacco e-Cigarette/Vaping Use: Never Used service: No Current occupational status: employed Cognitive needs: No Hearing needs: No Vision needs: No Female Reproductive History Menstrual Age of Menarche: 13 Review of Systems Const All systems reviewed & are unremarkable except as noted in HPI and below Physical Exam Vital Signs: Last Vital Signs Pulse 75 09/14/24 09:18 BP 130/73 09/14/24 09:18 BMI result Body Mass Index 19.3 Const General: cooperative and no acute distress Nutritional Appearance: well nourished Orientation/consciousness: patient oriented x3 Limitations: no limitations HEENT Head: Yes normocephalic and Yes atraumatic Ears: hearing grossly normal bilaterally Chest Other: Left breast: No skin change, no nipple retraction, no nipple discharge, no enlarged lymph nodes, palpable mass as noted below in the 2 to 3 o'clock position.. 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 A repeat ultrasound in 6 months is recommended. We discussed the possibility of excision if her symptoms change of the lesion seems to increase in size. She is comfortable with watching the fibroadenoma and will call for any concerns. She should follow up as needed. 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
[2024-09-14 09:18] VITALS: BP 130/73; PULSE 75; BMI 19.3
--- OUTSIDE RECORDS SUMMARY | 2024-09-14 09:52 | XMS_ITS | Data Portability ---
Author Organization PIETER Martinez s, [address] Address [address] [place] [address] Assessment Encounter Date Assessment Date Assessment LastModified [...] recorded. [facility]erral [facility] surgeon [facility] 14:49:54 Procedures None recorded. Surgeries None recorded. Imaging XR, hand, 3 or more view 2023 024 [email or web address], [address] [place] [address], [address], 4 08:25:05 XR, hand, 3 or more view - right hand , right pinky finger pain, injury, bruising and obvious deformity 2023 024 [email or web address], [address] [facility], [address], [address], 4 08:25:05 Medication Orders fexofenadi ne-pseudoe phedrine ER 180 mg-240 mg tablet,ext .release 24 hr 2022 023 MARY B[facility], [address] [place], [address], 4 19:18:29 prednisone 20 mg tablet 2022 023 [facility], [address] [place], [address], 19:18:31 Allergy Relief (fluticaso ne) 50 mcg/actuat ion nasal spray,susp ension 2022 023 [facility], [address] [place], [address], 19:18:26 Patient TargetsNo targets recorded. Patient Instructions Encounter Date Encounter Id Patient Instructions Last Modified By Organization Details Last Modified Time 09/18/2022 [id number] earache: care instructions [email or web address] Not available 09/18/2022 [...] care for yourself at home? Take an hzwd-vnx-itzbgxv pain medicine. Avoid Ibuprofen, Aleve and Aspirin if . If the doctor prescribed antibiotics, take them as directed. Do not stop taking them just because you feel better. You need to take the full course of antibiotics. Be careful when taking hcja-kam-ykgrlre cold or influenza (flu) medicines and Tylenol [...] congestion worse. 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 927789193 Active 2022 CHRISTOPHER lindsey PA - [facility] 3 08:31:22 Injury of finger 19385966 Active 2023 LOY CARBALLO NP [address] [place], [address] [facility] PA Bertin [facility] 4 19:59:33 Pain in finger 89776805 Active 2023 [place], [address] , PA - [facility] 4 20:06:37 [...] Name and Address Organization Details Recorded Time 021454 amoxicill in medicatio n rash Not available Not available 09/18/2022 723 [facility] CHRISTOPHER DC [facility] PA - [facility] 3 08:29:37 [...] e) 50 mcg/actuati on nasal spray,suspe nsion [place] 1 spray every day by intranasa l [...] Updated DateTime 4 160.02 cm 20.4 kg/m2 13647.1 2 g 16 /min 97.7 [degF] 100 % 100 % 80 /min 117 mm[Hg] 70 mm[Hg] HERNAN LANGE PA - [facility] 4 19:21:03 Date Recorded Body height Body mass index (BMI) Body weight Oxygen saturation Oxygen saturation in Arterial blood by Pulse oximetry Heart rate Respiratory rate Body temperature Systolic blood pressure Diastolic blood pressure Provider Name and Address Organization Details Last Updated DateTime 3 160.02 cm 20.4 kg/m2 91239.1 2 g 100 % 100 % 86 /min 18 /min 97.9 [degF] 121 mm[Hg] 82 mm[Hg] CHRISTOPHER DC [facility] 3 08:33:57 Social History Question Answer Notes LastModified by [employer] Details LastModified Time Tobacco Smoking Status Never Smoker CHRISTOPHER lindsey [facility] 09/18/2022 08:31:38 Have You Had Direct Contact, Or Contact During Intimacy, With Monkeypox Rash, Scabs, Or Body Fluids From A Person With Monkeypox? No Information not available 09/18/2022 Have You Recently Traveled Abroad? No Information not available 09/18/2022 Are You Currently In School? Yes Information not available 09/18/2022 Sex: Unknown Functional Status Question Answer Note LastModified by [employer] Details LastModified Time Do you use any illicit or recreational drugs? No Information not available 09/18/2022 Do you or have you ever used any other forms of tobacco or nicotine? No Information not available 09/18/2022 What is your level of alcohol consumption? None Information not available 09/18/2022 Are you currently employed? Yes Information not available 09/18/2022 Mental Status None recorded. Family History Relationship [...] 08:29:29 meningococcal B, recombinant 2 completed CHRISTOPHER LUOND null, PA - [facility] 09/18/2022 08:29:29 HPV9 3 completed CHRISTOPHER LUOND null, PA - [facility] 09/18/2022 08:29:29 HPV9 2 completed CHRISTOPHER DC null, PA - [facility] 09/18/2022 08:29:29 Influenza, MDCK, quadrivalent, PF 8 completed CHRISTOPHER DC null, PA - [facility] 09/18/2022 08:29:29 COVID-19, mRNA, LNP-S, PF, 30 mcg/0.3 mL dose 2 completed CHRISTOPHER LUOND null, PA - [facility] 09/18/2022 08:29:29 COVID-19, mRNA, LNP-S, PF, 30 mcg/0.3 mL dose 1 completed CHRISTOPHER WASHINGTONHIND null, PA - [facility] [...] 09/18/2022 08:29:29 meningococcal MCV4P 8 completed CHRISTOPHER DC null, PA - [facility] 09/18/2022 08:29:29 Influenza, split virus, quadrivalent, PF 9 completed CHRISTOPHER DC null, PA - [facility] 09/18/2022 08:29:29 Influenza, split virus, quadrivalent, PF 0 completed CHRISTOPHER DC null, PA - [facility] 09/18/2022 08:29:29 Influenza, split virus, quadrivalent, PF 1 completed CHRISTOPHER DC null, PA - [facility] 09/18/2022 08:29:29 Influenza, split virus, quadrivalent, PF 2 completed CHRISTOPHER DC null, PA - [facility] 09/18/2022 08:29:29 Influenza, split virus, quadrivalent, PF 5 completed CHRISTOPHER DC null, PA - [facility] 09/18/2022 08:29:29 Influenza, split virus, quadrivalent, PF 7 completed CHRISTOPHER DC null, PA - [facility] 09/18/2022 08:29:29 Influenza, split virus, quadrivalent, PF 6 completed CHRISTOPHER LUOND null, PA - [facility] 09/18/2022 08:29:29 Past Encounters Encounter ID Performer Location Encounter Start Date Encounter Closed Date Diagnosis/Indication Diagnosis SNOMED-CT Code Diagnosis ICD10 Code Diagnosis Note [id number] [address] [place] [address] 04/30/2016 18:12:39 04/30/2016 19:13:58 [id number] [address] [place] [address] 01/26/2016 18:18:55 01/26/2016 19:05:48 [id number] [address] [place] [address] 01/29/2016 16:27:05 01/29/2016 16:47:15 [id number] [address] [facility] [place] [address] 12/23/2021 09:41:22 12/23/2021 10:05:37 [id number] [address] [place] [address] 01/20/2020 14:24:46 01/20/2020 15:46:09 [id number] [address] [place] [address] 05/15/2019 11:28:14 05/15/2019 11:57:46 [id number] [address] [place] [address] 06/27/2019 09:14:26 06/27/2019 09:46:15 [id number] [address] [place] [address] 05/26/2019 08:53:30 05/26/2019 09:19:33 [id number] [address] [place] [address] 05/18/2019 08:52:36 05/18/2019 09:38:37 [id number] [address] [place] [address] 06/26/2019 11:35:44 06/26/2019 12:12:01 [id number] [address] [place] [address] 04/18/2019 08:49:40 04/18/2019 09:22:33 [id number] Wade Brown NP [address] [place] [address] 09/18/2022 08:11:58 09/18/2022 09:22:25 Acute sinusitis 82539100 J01.90 [id number] [address] [place] [address] 07/26/2023 17:55:49 07/30/2023 14:49:53 Injury of finger 29815789 S69.91XA Pain in finger 04514751 M79.644 Health Concerns Section Related Observation LastModified by Organization Detai ls LastModified Time None Recorded Concern Status LastModified by Organization Details LastModified Time None Recorded Advance Directives Directive None Recorded Payers Insurance Date Sequence Insurance Name Policy Number Policy Allen Covered Member ID Allen Member ID Guarantor Name 07/26/2023 1 [facility] (MEDICAID REPLACEMENT - HMO) CHANDAO Zunilda Ram [id number] Zunilda Ram 07/26/2023 1 [facility] [employer] [facility] (MEDICAID HMO) [id number] Zunilda Ram [id number] Zunilda Ram 07/26/2023 2 [facility] (MEDICAID HMO) Zunilda Ram [id number] Zunilda Ram Notes Date Note Type Note [...] Wade Brown NP [address] [place], [address], [place] - [facility] 09/18/2022 09:15:38 07/26/2023 text/html Finger PainRepor janie bypatient.source of patient [id number] finger pain laceration, bruising was playing lacrose, was stuck by another player has mild pain, no tingling or numbness to tip of pinky finger Locationlocation: right; [place];proximal phalanx; pain, deformity, bruising proximal aspect Neurovascular Status:color change in affected finger; no numbness or tingling Symptoms:pain with ROM;swelling;bruising;l aceration/abrasion LOY CARBALLO NP [address] [facility] [place], [address], [facility] 07/26/2023 20:35:47 OBGyn Episode No OBEpisode recorded.
== END 2024-09-14 09:25 | disposition home or self-care (01) ==
LOC: HO.HGS 09:05
PROVIDERS: PCP Internal Medicine; Visit Provider Surgery
DX: D24.2 Benign neoplasm of left breast (principal)
CPT/HCPCS: 99213

== ENCOUNTER → 2024-09-14 09:04 | Outpatient (BNVA) | payer OTHER, SELFPAY | PROVIDERS: PCP Internal Medicine; Visit Provider Surgery | DX: D24.2 Benign neoplasm of left breast (principal) | CPT/HCPCS: 99212 ==

== ENCOUNTER 2024-12-01 09:35 | Outpatient (AMB) | payer OTHER, SELFPAY ==
[2024-12-01 09:37] VITALS: BP 110/70; PULSE 94; O2SAT 98; BMI 19.5
--- NOTE | 2024-12-01 09:37 | A.OFFPC_ITS ---
Vital Signs 12/01/24 09:37 Height 5 ft 3 in Weight 110 lb BMI 19.5 BP 110/70 Blood Pressure Location Lt brachial Position Sitting Pulse 94 Pulse Source Pulse Oximeter Pulse Oximetry (%) 98 Oxygen Delivery Method Room Air Intake Visit Reasons: Annual PE Dermatology Technician Required: No Accompanied by: Self / Same As Patient Allergies amoxicillin Allergy (Mild, Verified 12/01/24 09:38) Rash Medication List - Last Reconciled 12/01/24 by Saurabh Renee MD albuterol sulfate 90 mcg/actuation (Ventolin HFA) inhalation norethindrone-e.estradiol-iron 1 mg-20 mcg (21)/75 mg (7) ( FE 05/03 (28)) 1 tab PO DAILY rizatriptan 10 mg PO ONCE 30 days Tobacco use date assessed: 07/27/24 Dental Screening Dental Screen Date: 07/27/24 HPI Annual PE HPI Details Physical exam appointment The patient is a 24-year-old female presenting with migraine and vulvodynia. Migraine: - The patient experiences migraines appr oximately two to three times per month. - Migraines occur more frequently during breakthrough bleeding, associated with menstruation. - Trigger factors include dehydration an d potential heat exposure. - Relief is achieved with Rizatriptan 10 mg, typically effective within 15 minutes to an hour, depending on food intake. Vulvodynia: - Diagnosed at an [facility]LE [facility] appointment. - Symptoms include severe pain, unable t o use tampons or engage in sexual activities. - History of pain from childhood, exacer bated during certain activities such as cycling. - Underwent pelvic floor physical therap y and received a lidocaine nerve injection. - Planning to consult another specialist for further evaluation and management. Medical History: - Diagnosed with Migraine - Diagnosed with Vulvodynia - Anxiety associated with vomiting phobi a - Exercise-induced menstrual irregularit ies - History of breast lump with pending fo llow-up ultrasound Surgical History: - Leg surgery performed a few years ago at [facility] left doing well Social History: - Engages in regular physical activity, including running four to eight miles regularly - Is on control primarily for migr smiley management - Recently started therapy for anxiety a nd phobia, seeing a therapist weekly via telehealth Family History: - Twin sister without any medical proble ms Health Maintenance - Up-to-date on vaccinations, including tetanus - Plans for flu vaccination in December or January - Recent laboratory results from the pre vious year were within normal limits [facility] - Jessie Montalvo, therapist from [facility] - Established care with an [facility]LE [facility]ER - Referral to a logistics analytics manager gynecologis t to have consultation regarding vulvodynia Patient Instructions - Follow up with newly consulted gynecol ogist - Regularly monitor migraine patterns an d triggers - Continue with current therapeutic inte rventions for anxiety - Plan follow-up ultrasound for previous ly detected breast lump - Address eating habits to ensure adequa te caloric intake Follow-up 1 year or early as needed Review of Systems - General: No fever no chills - Neurological: no dizziness - Ear nose throat: No sore throat no hearing difficulty no ear pain - Cardiovascular: No syncope, no chest pain, no palpitations - Gastrointestinal: No nausea vomiting or diarrhea - Endocrine: No polyuria polydipsia no heat intolerance - Genitourinary: No dysuria - Skin: No new complaints Physical Exam General: Cooperative, healthy appearing, comfortable, no acute distress Orientation: Patient oriented x3 Head: Normal to inspection Ears: Within normal limit visually Nose: Normal external nose present Face and sinus: Normal facial exam Eyes: Appearance normal, extraocular movement intact pupils reactive Neck: Normal visual inspection and supple Respiratory: Normal respiratory effort and able to speak in complete sentences. Clear to auscultation, no stridor Cardiovascular: S1 and S2 RRR Breast exam through OBGYN GI: Soft to palpation and nontender bowel sounds positive Skin: Turgor normal, no acute findings Neuro: Patient oriented x3, motor sensory intact, balance intact, tandem pass Extremities: Normal to inspection, linear scar left lower leg medially PFSH Medical History Tonsil stone Phobia Anxiety Migraine headache without aura Surgical History H/O fasciotomy H/O right wrist surgery History of surgery on lower extremity Family History Mother No problems noted. Father Arthritis Maternal Grandmother History of breast cancer Ovarian cancer Maternal Aunt History of breast cancer Social History Housing: House Alcohol intake: current Alcohol intake frequency: holidays/special occasions only Patient Tobacco Use Status: Never used Tobacco e-Cigarette/Vaping Use: Never Used service: No Current occupational status: employed Cognitive needs: No Hearing needs: No Vision needs: No Female Reproductive History Menstrual Age of Menarche: 13 Questionnaire PHQ-9 Over the last 2 weeks, how often have you been bothered by any of the following problems? 1. Little interest or pleasure in doing things: not at all 2. Feeling down, depressed, or hopeless: not at all 3. Trouble falling or staying asleep, or sleeping too much: not at all 4. Feeling tired or having little energy: not at all 5. Poor appetite or overeating: more than half the days 6. Feeling bad about yourself - or that you are a failure or have let yourself or your family down: not at all 7. Trouble concentrating on things, such as reading the newspaper or watching television: not at all 8. Moving or speaking so slowly that other people could have noticed. Or the opposite - being so fidgety or restless that you have been moving around a lot more than usual: not at all 9. Thoughts that you would be better off or of hurting yourself in some way: not at all Total score: 2 Depression Screening Interpretation: Negative Depression Screening Done: Yes 49270 - PHQ-9 Billing: Yes Source: Developed by Drs. Gilbert Pennington, Hilda Farnsworth, Markel Villatoro and colleagues, with an educational loretta from [employer]. Thrive Questionnaire Date Thrive assessed: 07/24/24 I am a: Patient What is your living situation today?: I have a steady place to live Within the past 12 months, did the food you bought not last and you didn't have the money to get more?: Never true Within the past 12 months, did you worry whether your food would run out before you got money to buy more?: Never true Do you have trouble paying for medicines?: No Do you have trouble getting transportation to medical appointments?: No Do you have trouble paying your heating and electricity bill?: No Do you have trouble taking care of your child, family member or friend?: No Do you have trouble with day-to-day activities such as bathing, preparing meals, shopping, managing finances, etc.?: No Are you currently unemployed and looking for a job?: No Are you interested in more education?: No Please select the resources that you would like help with: None Currently or been in a relationship where the following occur: No concerns reported THRIVE Score: 0 TALON-7 AMB Questionnaire TALON-7 Date TALON - 7 assessed: 07/27/24 Source: Developed by Drs. Gilbert Pennington, Hilda Farnsworth, Markel Villatoro and colleagues, with an educational loretta from [employer]. Physical exam (Primary Care) Vital Signs: Last Vital Signs Pulse 94 12/01/24 09:37 BP 110/70 12/01/24 09:37 Pulse Ox 98 12/01/24 09:37 Oxygen Delivery Method Room Air 12/01/24 09:37 BMI result Body Mass Index 19.5 Tobacco/Smoking Status: Tobacco use Status Tobacco use date assessed 07/27/24 12/01/24 09:42 Patient Tobacco Use Status Never used Tobacco 12/01/24 09:42 e-Cigarette/Vaping Use Never Used 12/01/24 09:42 PHQ-9: PHQ-9 Score PHQ-9: Total score 2 12/01/24 09:42 Depression Screening Interpretation: Negative Thrive Assessment: Date of Thrive Assessment Date Thrive assessed 07/24/24 12/01/24 09:42 Currently or been in a relationship where the following occur: No concerns reported Coding Level of Care Code Est Pt Level 3 (69273) Est Pt Prev Care 18-39y(01714) Diagnoses Encounter for general adult medical examination with abnormal findings Z00.01 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 Migraine without aura and without status migrainosus, not intractable G43.009 Intractability: not intractable Status migrainosus presence: without status migrainosus Anxiety F41.9 Other phobic anxiety disorders F40.8 Phobia type: other phobic anxiety disorders Additional Codes PHQ-9 - 90162 - PHQ-9 Billing: Yes ([id number]) Assessment & Plan Assessment & Plan (1) Encounter for general adult medical examination with abnormal findings: Code(s): Z00.01 - Encounter for general adult medical examination with abnormal findings Category: Medical (2) Idiopathic vulvodynia: Code(s): N94.819 - Vulvodynia, unspecified Category: Medical (3) Migraine headache without aura: Code(s): G43.009 - Migraine without aura, not intractable, without status migrainosus Category: Medical Qualifiers: Intractability: not intractable Status migrainosus presence: without status migrainosus Qualified Code(s): G43.009 - Migraine without aura, not intractable, without status migrainosus (4) Anxiety: Code(s): F41.9 - Anxiety disorder, unspecified Category: Medical (5) Phobia: Comment: Vomiting phobia, getting therapy feeling better Code(s): F40.9 - Phobic anxiety disorder, unspecified Category: Medical Qualifiers: Phobia type: other phobic anxiety disorders Qualified Code(s): F40.8 - Other phobic anxiety disorders Plan Physical exam appointment The patient is a 24-year-old female presenting with migraine and vulvodynia. Migraine: - The patient experiences migraines approximately two to three times per month. - Migraines occur more frequently during breakthrough bleeding, associated with menstruation. - Trigger factors include dehydration and potential heat exposure. - Relief is achieved with Rizatriptan 10 mg, typically effective within 15 minutes to an hour, depending on food intake. Vulvodynia: - Diagnosed at an [facility]LE [facility]ER appointment. - Symptoms include severe pain, unable to use tampons or engage in sexual activities. - History of pain from childhood, exacerbated during certain activities such as cycling. - Underwent pelvic floor physical therapy and received a lidocaine nerve injection. - Planning to consult another specialist for further evaluation and management. Medical History: - Diagnosed with Migraine - Diagnosed with Vulvodynia - Anxiety associated with vomiting phobia - Exercise-induced menstrual irregularities - History of breast lump with pending follow-up ultrasound Surgical History: - Leg surgery performed a few years ago at [facility] left doing well Social History: - Engages in regular physical activity, including running four to eight miles regularly - Is on control primarily for migraine management - Recently started therapy for anxiety and phobia, seeing a therapist weekly via telehealth Family History: - Twin sister without any medical problems Health Maintenance - Up-to-date on vaccinations, including tetanus - Plans for flu vaccination in December or January - Recent laboratory results from the previous year were within normal limits [facility] - Jessie Montalvo therapist from [facility] - Established care with an [facility] [employer] [facility]LE REL[facility]ER - Referral to a yarder boss to have consultation regarding vulvodynia Patient Instructions - Follow up with newly consulted small appliance assembly supervisor - Regularly monitor migraine patterns and triggers - Continue with current therapeutic interventions for anxiety - Plan follow-up ultrasound for previously detected breast lump - Address eating habits to ensure adequate caloric intake Follow-up 1 year or early as needed Orders: Orders Complete Blood Count Auto Diff Today F40.8 - Other phobic anxiety disorders, F41.9 - Anxiety disorder, unspecified, G43.009 - Migraine without aura, not intractable, without status migrainosus, N94.819 - Vulvodynia, unspecified, Z76.89 - Persons encountering health services in other specified circumstances Comprehensive [place]ams. Panel Fast Today F40.8 - Other phobic anxiety disorders, F41.9 - Anxiety disorder, unspecified, G43.009 - Migraine without aura, not intractable, without status migrainosus, N94.819 - Vulvodynia, unspecified, Z76.89 - Persons encountering health services in other specified circumstances Vitamin B12 Today F40.8 - Other phobic anxiety disorders, F41.9 - Anxiety disorder, unspecified, G43.009 - Migraine without aura, not intractable, without status migrainosus, N94.819 - Vulvodynia, unspecified, Z76.89 - Persons encountering health services in other specified circumstances Ferritin Today F40.8 - Other phobic anxiety disorders, F41.9 - Anxiety disorder, unspecified, G43.009 - Migraine without aura, not intractable, without status migrainosus, N94.819 - Vulvodynia, unspecified, Z76.89 - Persons encountering health services in other specified circumstances Lipid Panel Today F40.8 - Other phobic anxiety disorders, F41.9 - Anxiety disorder, unspecified, G43.009 - Migraine without aura, not intractable, without status migrainosus, N94.819 - Vulvodynia, unspecified, Z76.89 - Persons encountering health services in other specified circumstances Vitamin D 25-OH (D2 and D3) Today F40.8 - Other phobic anxiety disorders, F41.9 - Anxiety disorder, unspecified, G43.009 - Migraine without aura, not intractable, without status migrainosus, N94.819 - Vulvodynia, unspecified, Z76.89 - Persons encountering health services in other specified circumstances TSH reflex Free T4 Today F40.8 - Other phobic anxiety disorders, F41.9 - Anxiet y disorder, unspecified, G43.009 - Migraine without aura, not intractable, without status migrainosus, N94.819 - Vulvodynia, unspecified, Z76.89 - Persons encountering health services in other specified circumstances Magnesium Today F40.8 - Other phobic anxiety disorders, F41.9 - Anxiety disorder, unspecified, G43.009 - Migraine without aura, not intractable, without status migrainosus, N94.819 - Vulvodynia, unspecified, Z76.89 - Persons encountering health services in other specified circumstances Referrals [facility]ER Referral N94.819 - Vulvodynia, unspecified
--- OUTSIDE RECORDS SUMMARY | 2024-12-01 10:23 | XMS_ITS | Encounter Summary ---
Author Organization [facility] Address [address] [place] [address] Phone Care Team Providers Care Pack Worker Supervisor Name Role Phone Mei Jesus MD Primary Care Provider [phone] Encounter Details Date Type Department Care Team (Late st Contact Info) Description 11/28/2016 Conversion Encounter [facility] [address] [place] [address] Social History Tobacco Use Types Packs/Day Years [...] on filedocumented in this encounter Care Teams Pack Worker Supervisor Relationship Specialty Start Date End Date Mei Jesus MD [address] [place] [address] PCP - General Pediatrics 11/27/22 02/11/23 documented as of this encounter
--- OUTSIDE RECORDS SUMMARY | 2024-12-01 10:23 | XMS_ITS | Clinical Summary ---
Author Organization [facility] Address [address] [place] [id number] Phone Care Team Providers Care Browning Processor Name Role Phone Saurabh Renee MD Primary Care Provider [phone] Allergies Active Allergy Reactions Criticality Noted Date Comments Amoxicillin Rash Low 05/15/2021 Medications rizatriptan (MAXALT) 10 MG tablet 2 Active JUNEL 05/03, , 1-20 mg-mcg per tablet 2 Active albuterol (VENTOLIN HFA) 90 mcg/actuation inhaler 2 puffs. 3 Active baclofen (LIORESAL) 20 MG tabletIndicatio ns:Neuralgia of both pudendal nerves Take 1 tablet (20 mg total) by mouth daily as needed for spasm. Crush, place in coconut oil, cool, and insert vaginally 1-2 times per day 60 tablet 5 Active Additional Information Patient not taking.Reported on 11/03/2024 lidocaine 5 % ointment Apply topically 3 (three) times a day. No menthol no eucalyptus, neutral base 30 g 3 5 11/12/19 25 Active Problems No known active problems Encounters Date Type Department Care Team Description 11/03/2024 9:30 AM EDT Telemedicine [facility] [address] [place] [address] Bhargavi Garner CNP Pudendal neuralgia (Primary Dx) 10/12/2024 11:40 AM EDT Procedure visit [facility] [address] [place] [address] Colleen Bangura MD Pudendal neuralgia 10/12/2024 11:14 AM EDT - 10/12/2024 11:59 PM EDT Hospital Encounter [facility] Imaging - Diagnostic Radiology, [facility] [address] [place] [address] Colleen Bangura MD Discharge Disposition: Home or Self Care 10/04/2024 Ancillary Orders [facility] [address] [place] [address] Colleen Bangura MD Other chronic pain (Primary Dx) 09/20/2024 11:00 AM EDT Initial consult [facility] [address] [place] [address] Bhargavi Garner CNP Neuralgia of both pudendal nerves (Primary Dx) 09/20/2024 Orders Only [facility] [address] [place] [address] Bhargavi Garner CNP Pudendal neuralgia (Primary Dx) from Last 3 Months Social History Tobacco Use Types Packs/Day Years Used Date Smoking Tobacco: Never Smokeless Tobacco: Never Education Answer Date Recorded Are you interested in more education? Not on yoli e 08/10/2022 Are you concerned about learning? Not on file 08/10/2022 No 08/10/2022 No 08/10/2022 Digital Access Answer Date Recorded No 09/08/2022 No 09/08/2022 Reliable internet access at home? Not on file 09/08/2022 Device with a working camera? Not on file Intimate Partner Violence Answer Date R ecorded Are you denied basic needs s uch as food, clothing, or medical care? No 10/12/2024 In the past 12 months have y ou been in a relationship with a person who hurts, threatens, or tries to control you? No 10/12/2024 Are you denied basic needs s uch as food, clothing, or medical care? No 10/12/2024 In the past 12 months have y ou been in a relationship with a person who hurts, threatens, or tries to control you? No 10/12/2024 Comments Unknown Sex and Gender Information Value Date Recorded Sex Assigned at Female 03/15/2021 11:05 AM EST Legal Sex Female 10:53 AM EST Gender Identity Female 03/15/2021 11:05 AM EST Sexual Orientation Straight 03/15/2021 11 :05 AM EST Last Filed Vital Signs Vital Sign Reading Time Taken Comments Blood Pressure 129/76 10/12/2024 11:13 AM EDT Pulse 71 10/12/2024 11:13 AM EDT Temperature 36.9 C (98.5 F) 05/15/2021 1:30 PM EST Respiratory Rate - - Oxygen Saturation 100% 09/20/2024 10:58 AM EDT Inhaled Oxygen Concentration - - Weight 49.9 kg (110 lb) 11/03/2024 9:29 AM EDT Height 160 cm (5' 3 ) 11/03/2024 9:29 AM EDT Body Mass Index 19.49 11/03/2024 9:29 AM EDT Plan of Treatment Upcoming Encounters Date Type Department Care Team (Late st Contact Info) Description 02/02/2025 8:00 AM EDT Telemedicine [facility] [address] [place] [address] Bhargavi Garner CNP [address] [place] [address] Health Maintenance Due Date Last Done Comments DEPRESSION SCREENING 2013 HPV VACCINES (1 - 3-dose series) 02/25/2016 CHLAMYDIA SCREENING 2017 HEPATITIS C SCREENING 2019 HIV ONE-TIME SCREENING (18-6 5 YEARS) 2019 MENINGOCOCCAL VACCINES (B) ( 2 of 2 - Trumenba SCDM 2-dose series) 06/18/2021 12/19/2020 PAP SMEAR 2022 Adult Td,Tdap Booster 06/17/2023 06/16/2013 COVID-19 VACCINE (4 - 2023-2 5 season) 2023 04/17/2021, 08/08/2020, 07/18/2020 SMOKING Hx and SMOKELESS TOBACCO SCREENING 11/03/2025 11/03/2024 HEPATITIS A VACCINES Completed 11/22/2015, 10/05/2014 MENINGOCOCCAL VACCINES (ACWY) Completed 12/08/2017 HIB VACCINES Aged Out No longer eligi ble based on patient's age to complete this topic PNEUMOCOCCAL VACCINES (0-49 years) Aged Out No longer eligible b ased on patient's age to complete this topic Medical Devices Not on file Procedures Procedure Name Priority Date/Time Associated Diagnosis Comments [place] PAIN MANAGEMENT Routine 10/12/2024 12 :14 PM EDT Other chronic pain from Last 3 Months Results * [place] Pain Management (10/12/2024 12:14 PM EDT) Narrative [facility] IMG INTERFACES - 10/12/2024 12:14 PM EDT Fluoroscopy was provided during this procedure. us Colleen Bangura MD IMG [place] EXAMS Final Resul t [facility] IMG INTERFACES from Last 3 Months Insurance [facility] [place] [address] [place] [address] [facility] [address] [place] [address] [facility] [address] [place] [address] [facility] Care Teams Browning Processor Relationship Specialty Start Date End Date Saurabh Renee MD [address] [place] [address] PCP - General Internal Medicine 04/02/24 Additional Source Comments The information contained in this document represents components of the legal health record. It is not the complete legal health record.[facility]
--- OUTSIDE RECORDS SUMMARY | 2024-12-01 10:23 | XMS_ITS | Clinical Summary ---
Author Organization [facility] Address [address] [place] [address] Phone Care Team Providers Care Supervisor Coal Handling Name Role Phone Fatou Carr Unavailable [phone] Mei Jesus MD Primary Care Provider [phone] Iqra Walker Unavailable [phone] Medications rizatriptan (Maxalt) 10 mg tablet mg, tab, PO, daily, Entered: 11/12/21 9:16:00 EDT 11/12/2021 Active Social History Tobacco Use Types Packs/Day Years Used Date Smoking Tobacco: Never Assessed Comments Unknown Sex and Gender Information Value Date Recorded Sex Assigned at Not on file Legal Sex Female 5:13 AM EDT Gender Identity Not on file Sexual Orientation Not on file Last Filed Vital Signs Vital Sign Reading Time Taken Comments Blood Pressure 108/83 11/16/2021 4:00 PM EDT Pulse 81 11/16/2021 4:00 PM EDT Temperature - - Respiratory Rate 14 11/16/2021 4:00 PM EDT Oxygen Saturation 99% 11/16/2021 4:00 PM EDT Inhaled Oxygen Concentration - - Weight 51.5 kg (113 lb 8.6 oz) 11/26/2022 5:04 P M EDT Height 161.4 cm (5' 3.54 ) 11/26/2022 5:04 PM ED T Body Mass Index 19.77 11/26/2022 5:04 PM EDT Plan of Treatment Health Maintenance Due Date Last Done Comments HIV Screening 2001 MMR Vaccines (1 of 1 - Stand zoya series) 2002 DTaP/Tdap/Td Vaccines (1 - Tdap) 02/25/2008 Varicella Vaccines (1 of 2 - 13+ 2-dose series) 2014 HPV Vaccines (1 - 3-dose series) 02/25/2016 Meningococcal B Vaccine (1 o f 2 - Standard) 2017 Hepatitis C Screening 2019 Hepatitis B Vaccines (1 of 3 - 19+ 3-dose series) 02/25/2020 COVID-19 Vaccine (1 - 2023-2 5 season) 2023 Influenza Vaccine (#1) 2024 HIB Vaccines Aged Out No longer eligi ble based on patient's age to complete this topic Hepatitis A Vaccines Aged Out No long er eligible based on patient's age to complete this topic IPV Vaccines Aged Out No longer eligi ble based on patient's age to complete this topic Meningococcal Vaccine Aged Out No ted emily eligible based on patient's age to complete this topic Pneumococcal Vaccine: Pediat rics (0 to 5 Years) and At-Risk Patients (6 to 49 Years) Aged Out No longer eligible b ased on patient's age to complete this topic Rotavirus Vaccines Aged Out No longer eligible based on patient's age to complete this topic Care Teams Supervisor Coal Handling Relationship Specialty Start Date End Date Fatou Carr [address] [place] [id number] PCP - Insurance PCP 01/27/23 Mei Jesus MD [address] [place] [address] PCP - General 05/24/22 Iqra Walker [address] [place] [address] PCP - Clinical PCP 08/08/21
== END 2024-12-01 10:00 | disposition home or self-care (01) ==
LOC: HO.HMCC 09:36
PROVIDERS: PCP Internal Medicine; Visit Provider Internal Medicine
DX: Z00.00 Encounter for general adult medical examination without abnormal findings (principal); N94.819 Vulvodynia, unspecified; G43.009 Migraine without aura, not intractable, without status migrainosus; F41.9 Anxiety disorder, unspecified; F40.8 Other phobic anxiety disorders

== ENCOUNTER → 2024-12-01 09:35 | Outpatient (BNVA) | payer OTHER, SELFPAY | PROVIDERS: PCP Internal Medicine; Visit Provider Internal Medicine | DX: Z00.01 Encounter for general adult medical examination with abnormal findings (principal); N94.819 Vulvodynia, unspecified; G43.009 Migraine without aura, not intractable, without status migrainosus; F41.9 Anxiety disorder, unspecified; F40.8 Other phobic anxiety disorders | CPT/HCPCS: 96127; 99395 ==

== ENCOUNTER 2025-02-08 08:53 | Outpatient (AMB) | payer OTHER, SELFPAY ==
--- NOTE | 2025-02-08 08:55 | MHC.OFFVIS ---
Vital Signs 02/08/25 08:56 Height 5 ft 3 in Weight 113 lb BMI 20.0 BP 100/60 Intake Visit Reasons: UNDERGRADUATE INTERN annual exam Recyclable Materials Sorter: Recyclable Materials Sorter Present (Kylee) Allergies amoxicillin Allergy (Mild, Verified 02/08/25 08:56) Rash HPI Comments Details: Patient is a premenopausal woman presenting for annual examination. Binding Dyer concerns: History of vulvodynia. Seen at the [address] [place] [address] physical therapy department for pelvic therapy. Was seen at [facility] this summer and had a pudendal nerve block which subsequently was not as successful as she had hoped it also had affected her legs in cause numbness extensively. Had also tried topical Diclofinic but was irritating. Currently she has seen Dr. Ovalles in her and we will start topical gabapentin when her prescription is ready. She has a follow up in several weeks Patient takes her pills continuously due to heavy menstrual bleeding and history of passing out with cycles. History of left breast mass at 02:00 has been followed every six-month with the ultrasound and sees Dr. Carlos for a follow up. History of migraines without aura. Uses control continuously, occasional would take a few days off when she is having breakthrough bleeding in the 3rd month, notes a migraine onset when she does stop, uses her rizatriptan as needed. She denies any contraindications to control such as: migraines with aura, history of DVT or pulmonary emboli, high blood pressure, liver disease, thrombolic disorders, Lupus, +KIAN, breast cancer, or smoking. Not able to have intimacy or any exam intravaginally due to her symptoms. She tries to eat healthy and stays active with exercise marathon runner. Family history of breast and colon cancer Unable to do Pap smear due to vulvodynia limited exam. [facility] Medical History (Updated 02/08/25 @ 09:46 by Magnolia Tucker CNM) Tonsil stone Phobia Anxiety Migraine headache without aura Surgical History H/O fasciotomy H/O right wrist surgery History of surgery on lower extremity Family History Mother No problems noted. Father Arthritis Maternal Grandmother History of breast cancer Colon cancer Endometrial cancer Maternal Aunt History of breast cancer Social History Housing: House Alcohol intake: current Alcohol intake frequency: holidays/special occasions only Patient Tobacco Use Status: Never used Tobacco e-Cigarette/Vaping Use: Never Used service: No Current occupational status: employed Cognitive needs: No Hearing needs: No Vision needs: No Female Reproductive History Menstrual Age of Menarche: 13 control method: pills Total pregnancies: 0 Review of Systems Const All systems reviewed & are unremarkable except as noted in HPI and below Reports no additional complaints Skin/Breast Reports system reviewed and no additional complaints, except as documented and Reports as per HPI Physical Exam Vital Signs: Last Vital Signs BP 100/60 02/08/25 08:56 BMI result Body Mass Index 20.0 Const General: cooperative, healthy appearing and no acute distress Chest Breast/axilla inspection: normal inspection of the breasts and normal inspection of the axillae Breast/axilla palpation: abnormal palpation of the axilla (Left breast mass at 02:00, nontender) Other: External inspection only. Normal exam Skin General skin exam: no rashes or lesions noted Assessment & Plan Assessment & Plan (1) Encounter for well woman exam with routine gynecological exam: Code(s): Z01.419 - Encounter for gynecological examination (general) (routine) without abnormal findings Category: Medical Plan Discussed: Current recommendations for pap smears per ASCCP guidelines. Pap smear deferred due to unable to examine patient. Breast awareness and periodic breast exams. Follow up ultrasound and with breast surgeon. control hormone use warnings: go to ER if and loss of vision, blindness, severe headache, chest pain or difficulty breathing, severe abdominal pain, or any pain or swelling in an extremity. Reviewed different varieties of medications including Mircette with additional estrogen and continuous cycle use, prefers to maintain her current OCP. Maintain a healthy lifestyle including a well balanced diet and routine exercise. Follow up with vulvar specialist. Patient verbalizes understanding and agrees to the plan of care. She was given opportunity to ask questions and all questions were answered to the best of my ability. RTO in one year for annual solid waste disposal manager examination. This note is constructed using voice recognition software. While every effort has been made to ensure accuracy, acquisitions analyst errors may have been included. Medications: Refilled norethindrone-e.estradiol-iron 1 mg-20 mcg (21)/75 mg (7) ( FE 05/03 (28)) continuous dosing, skip placebo week. 1 tab PO DAILY 84 tabs 4RF Coding Level of Care Code Est Pt Prev Care 18-39y(09716) Diagnoses Encounter for well woman exam with routine gynecological exam Z01.419
[2025-02-08 08:56] VITALS: BP 100/60
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
--- OUTSIDE RECORDS SUMMARY | 2025-02-08 09:44 | XMS_ITS | Encounter Summary ---
Author Organization [facility] Address [address] [place] [address] Phone Care Team Providers Care Museum Guide Name Role Phone Mei Jesus MD Primary Care Provider [phone] Encounter Details Date Type Department Care Team (Late st Contact Info) Description 02/27/2016 Documentation [facility] Family Medicine [address] [place], [place] [address] Family Medicine, Physician [address] [place], [place] [address] Social History Tobacco Use Types Packs/Day Years [...] on filedocumented in this encounter Care Teams Museum Guide Relationship Specialty Start Date End Date Mei Jesus MD [address] [place] [address] PCP - General Pediatrics 11/27/22 02/11/23 documented as of this encounter
--- OUTSIDE RECORDS SUMMARY | 2025-02-08 09:44 | XMS_ITS | Encounter Summary ---
Author Organization [facility] Address [address] [place] [address] Phone Care Team Providers Care Yarn Wrapper Name Role Phone Mei Jesus MD Primary Care Provider [phone] Reason for Visit * Reason Comments Med Refill Encounter Details Date Type Department Care Team (Late st Contact Info) Description 09/17/2017 Refill [facility] [place] [address] [place] [address] Magdalena Chavez NP [address] [place] [address] Oral contraceptive use Social History Tobacco Use [...] use documented in this encounter Care Teams Yarn Wrapper Relationship Specialty Start Date End Date Mei Jesus MD [address] [place] [address] PCP - General Pediatrics 11/27/22 02/11/23 documented as of this encounter
--- OUTSIDE RECORDS SUMMARY | 2025-02-08 09:44 | XMS_ITS | Encounter Summary ---
Author Organization [facility] Address [address] [place] [address] Phone Care Team Providers Care Prototype Engineer Name Role Phone Mei Jesus MD Primary Care Provider Encounter Details Date Type Department Care Team (Late st Contact Info) Description 11/28/2016 Conversion Encounter [facility] [address] [place] [address] Social History Tobacco Use Types Packs/Day Years [...] on filedocumented in this encounter Care Teams Prototype Engineer Relationship Specialty Start Date End Date Mei Jesus MD [address] [place] [address] PCP - General Pediatrics 11/27/22 02/11/23 documented as of this encounter
--- OUTSIDE RECORDS SUMMARY | 2025-02-08 09:44 | XMS_ITS | Encounter Summary ---
Author Organization [facility] Address [address] [place] [address] Phone Care Team Providers Care Instrument Calibrator Name Role Phone Mei Jesus MD Primary Care Provider [phone] Reason for Visit * Reason Comments Med Refill Encounter Details Date Type Department Care Team (Late st Contact Info) Description 01/10/2017 Refill [facility] [place] [address] [place] [address] Magdalena Chavez NP [address] [address] Oral contraceptive use (Primary Dx) Social History [...] Primary documented in this encounter Care Teams Instrument Calibrator Relationship Specialty Start Date End Date Mei Jesus MD [address] [place] [address] PCP - General Pediatrics 11/27/22 02/11/23 documented as of this encounter
--- OUTSIDE RECORDS SUMMARY | 2025-02-08 09:44 | XMS_ITS | Encounter Summary ---
Author Organization [facility] Address [address] [place] [address] Phone Care Team Providers Care Gsa Coordinator Name Role Phone Mei Jesus MD Primary Care Provider [phone] Encounter Details Date Type Department Care Team (Late st Contact Info) Description 09/01/2009 Documentation [facility] [place] Family Medicine [address] [place] [address] Family Medicine, Physician [address], [place] [id number] Social History Tobacco Use Types Packs/Day Years [...] on filedocumented in this encounter Care Teams Gsa Coordinator Relationship Specialty Start Date End Date Mei Jesus MD [address] [place] [address] PCP - General Pediatrics 11/27/22 02/11/23 documented as of this encounter
--- OUTSIDE RECORDS SUMMARY | 2025-02-08 09:45 | XMS_ITS | Clinical Summary ---
Author Organization [facility] Address [address] [place] [address] Phone Care Team Providers Care Top Precipitator Operator Name Role Phone Saurabh Renee MD Primary Care Provider [phone] Allergies Active Allergy Reactions Criticality Noted Date [...] Active Additional Information Patient not taking.Reported on 02/02/2025 Active Problems No known active problems Encounters Date Type Department Care Team Description 02/02/2025 8:00 AM EDT Telemedicine [facility] [address] [place] [address] Bhargavi Garner, NAKIA Pudendal neuralgia (Primary Dx) from Last 3 [...] - - Weight 49.9 kg (110 lb) 02/02/2025 7:58 AM EDT Height 160 cm (5' 3 ) 02/02/2025 7:58 AM EDT Body Mass Index 19.49 02/02/2025 7:58 AM EDT Plan of Treatment Health Maintenance Due Date Last Done Comments DEPRESSION SCREENING 2013 HPV VACCINES (1 - 3-dose series) 02/25/2016 CHLAMYDIA SCREENING 2017 HEPATITIS C SCREENING 2019 HIV ONE-TIME SCREENING (18-65 YEARS) 2019 MENINGOCOCCAL VACCINES (B) (2 of 2 - Trumenba SCDM 2-dose series) 06/18/2021 12/19/2020 PAP SMEAR 2022 Adult Td,Tdap Booster 06/17/2023 06/16/2013 INFLUENZA VACCINE (#1) 2024 , 12/17/2019, 12/11/2018, Additional history exists COVID-19 VACCINE ( season) 2024 04/17/2021, 08/08/2020, 07/18/2020 SMOKING Hx and SMOKELESS TOBACCO SCREENING 02/02/2026 02/02/2025 HEPATITIS A VACCINES Completed 11/22/2015, 10/06/19 15 MENINGOCOCCAL VACCINES (ACWY) Completed 12/08/2017 HIB VACCINES Aged Out No longer eligi ble based on patient's age to complete this topic PNEUMOCOCCAL VACCINES (0-49 years) Aged Out No longer eligible based on patient's age to complete this topic Medical Devices Not on file Insurance [facility] [employer] [facility] CHILDREN'S ACO [facility] [place] [address] [place] [address] CHILDREN'S [facility] [place] [address] [place] [address] [place] [address] [place] [address] [facility]ILDREN[facility]S [facility] [place] [place] [address] [place] [address] CHILDREN'S ACO [facility]DR[facility] A[facility] A[facility] CHILDREN'S ACO [facility] ACO Care Teams Top Precipitator Operator Relationship Specialty Start Date End Date Saurabh Renee MD [facility] [place] [address] PCP - General Internal Medicine 04/02/24 Additional Source Comments The information contained in this document represents components of the legal health record. It is not the complete legal health record.[facility]
--- OUTSIDE RECORDS SUMMARY | 2025-02-08 09:45 | XMS_ITS | Clinical Summary ---
Author Organization [facility] Address [address] [place] [address] Phone Care Team Providers Care Orange Picking Supervisor Name Role Phone Fatou Carr Unavailable [phone] Mei Jesus MD Primary Care Provider [phone] Iqra Walker Unavailable [phone] Medications rizatriptan (Maxalt) 10 mg tablet mg, [...] 11/26/2022 5:04 PM EDT Plan of Treatment Not on file Care Teams Orange Picking Supervisor Relationship Specialty Start Date End Date Fatou Carr [address] [place] [address] PCP - Insurance PCP 01/27/23 Mei Jesus MD [address] [place], [place] [phone] PCP - General 05/24/22 Iqra Walker [address] [place], [place] [phone] PCP - Clinical PCP 08/08/21
--- OUTSIDE RECORDS SUMMARY | 2025-02-08 09:45 | XMS_ITS | Encounter Summary ---
Author Organization [facility] Address [address] [place] [address] [place] [address] Phone Care Team Providers Care Grain Origination Specialist Name Role Phone Saurabh Renee MD Primary Care Provider [phone] Encounter Details Date Type Department Care Team (Late st Contact Info) Description 10/04/2024 Ancillary Orders [facility] Medicine [address] [place] [address] Colleen Bangura MD [address] [place] [address] [email or web address] Other chronic pain (Primary Dx) Social History Tobacco Use Types [...] with a working camera? Not on file Comments Unknown Sex and Gender Information Value Date Recorded Sex Assigned at Female 03/15/2021 11:05 AM EST Legal Sex Female 10:53 AM EST Gender Identity Female 03/15/2021 11:05 AM EST Sexual Orientation Straight 03/15/2021 11 :05 AM EST documented as of this encounter Plan of Treatment Not on file documented as of this encounter Results * [place] Pain [facility] (10/12/2024 12:14 PM EDT) Narrative [facility] IMG INTERFACES - 10/12/2024 12:14 PM EDT Fluoroscopy was provided during this procedure. us Colleen Bangura MD IMG [place] EXAMS Final Resul t [facility] IMG INTERFACES documented in this encounter Visit Diagnoses Diagnosis Other chronic pain- Primary Other chronic pain documented in this encounter Care Teams Grain Origination Specialist Relationship Specialty Start Date End Date Saurabh Renee MD [address] [facility] [address] PCP - General Internal Medicine 04/02/24 documented as of this encounter Additional Source Comments The information contained in this document represents components of the legal health record. It is not the complete legal health record.[facility]
== END 2025-02-08 09:53 | disposition home or self-care (01) ==
LOC: HO.HWS 08:54
PROVIDERS: PCP Physician Assistant Medical; Visit Provider Advanced Practice Midwife
DX: Z01.419 Encounter for gynecological examination (general) (routine) without abnormal findings (principal)
CPT/HCPCS: 99395

== ENCOUNTER → 2025-02-08 08:53 | Outpatient (BNVA) | payer OTHER, SELFPAY | PROVIDERS: PCP Physician Assistant Medical; Visit Provider Advanced Practice Midwife | DX: Z01.419 Encounter for gynecological examination (general) (routine) without abnormal findings (principal); N94.819 Vulvodynia, unspecified; Z79.3 Long term (current) use of hormonal contraceptives; Z80.3 Family history of malignant neoplasm of breast | CPT/HCPCS: 99395 ==

== ENCOUNTER 2025-02-10 10:53 | Outpatient (REF) | payer OTHER, SELFPAY ==
--- NOTE | ~2025-02-10 | US_ITS ---
EXAMINATION: US DIAGNOSTIC ULTRASOUND BREAST, LEFT CLINICAL INFORMATION: 1 year follow-up for hypoechoic oval solid mass in the left breast 2:00 2 7 m from the nipple.. COMPARISON: Comparison is made with relevant prior imaging. TECHNIQUE: Ultrasound of the breast is performed with real-time gaudarrama scale imaging and color Doppler. FINDINGS: Targeted color Doppler ultrasound again demonstrates a hypoechoic oval circumscribed solid mass at 2:00 2 cm from the nipple measuring 12 x 11 x 9 mm which given differences in measuring technique is not significantly changed from prior ultrasounds dating back for one year. 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 Results are discussed with the patient at time of visit. US/US Breast RT Limited Mamm Only IMPRESSION: Hypoechoic oval parallel circumscribed solid mass at 2:00 2 cm from the nipple given differences in measuring technique is not significantly changed from prior ultrasounds dating back for one year. Recommend one-year follow-up ultrasound to demonstrate 2 years of stability. ASSESSMENT: BI-RADS 3: Probably Benign RECOMMENDATION: Diagnostic ultrasound due in 12 months. Electronically signed by: Herlinda De La Fuente DO 02/10/2025 11:45 AM EDT
--- OUTSIDE RECORDS SUMMARY | 2025-02-10 13:35 | XMS_ITS | Encounter Summary ---
Author Organization [facility] Address [address] [place] [address] Phone Care Team Providers Care Director Post Name Role Phone Mei Jesus MD Primary Care Provider Encounter Details Date Type Department Care Team (Late st Contact Info) Description 02/27/2016 Documentation [facility] [place] [address] [place], [place] [phone] Family Medicine, Physician [address], [place] [phone] Social History Tobacco Use Types Packs/Day Years [...] on filedocumented in this encounter Care Teams Director Post Relationship Specialty Start Date End Date Mei Jesus MD [address] [place] [address] PCP - General Pediatrics 11/27/22 02/11/23 documented as of this encounter
--- OUTSIDE RECORDS SUMMARY | 2025-02-10 13:35 | XMS_ITS | Encounter Summary ---
Author Organization [facility] Address [address] [address] Phone Care Team Providers Care Project Coach Name Role Phone Mei Jesus MD Primary Care Provider [phone] Encounter Details Date Type Department Care Team (Late st Contact Info) Description 09/01/2009 Documentation [facility] Family Medicine [address] [place] [address] Family Medicine, Physician [address], [place] [phone] Social History Tobacco Use Types Packs/Day Years [...] on filedocumented in this encounter Care Teams Project Coach Relationship Specialty Start Date End Date Mei Jesus MD [address] [place] [address] PCP - General Pediatrics 11/27/22 02/11/23 documented as of this encounter
--- OUTSIDE RECORDS SUMMARY | 2025-02-10 13:35 | XMS_ITS | Data Portability ---
Author Organization PIETER Martinez s, [address] Address [address] [place] [address] Assessment Encounter Date Assessment Date Assessment LastModified [...] recorded. Referral [facility] surgeon [facility] Not [facility] 14:49:54 Procedures None recorded. Surgeries None recorded. Imaging XR, hand, 3 or more view 2023 024 [email or web address], [address] [place] [address], [address], 4 08:25:05 XR, hand, 3 or more view - right hand , right pinky finger pain, injury, bruising and obvious deformity 2023 024 [email or web address] [place], [address] [facility], [address], [address], 4 08:25:05 Medication Orders fexofenadi ne-pseudoe phedrine ER 180 mg-240 mg tablet,ext .release 24 hr 2022 023 MARY BETH [facility], [address] [place], [address], 4 19:18:29 prednisone 20 mg tablet 2022 023 [facility], [address] [place], [address], 4 19:18:31 Allergy Relief (fluticaso ne) 50 mcg/actuat ion nasal spray,susp ension 2022 023 [facility], [address] [place], [address], 19:18:26 Patient TargetsNo targets recorded. Patient Instructions Encounter Date Encounter Id Patient Instructions Last Modified By Organization Details Last Modified Time 09/18/2022 [id number] earache: care instructions Not available 09/18/2022 09:15:16 ear infection (otitis [...] care for yourself at home? Take an smyq-pvl-rthqeys pain medicine. Avoid Ibuprofen, Aleve and Aspirin if . If the doctor prescribed antibiotics, take them as directed. Do not stop taking them just because you feel better. You need to take the full course of antibiotics. Be careful when taking suqw-lec-qbnsuti cold or influenza (flu) medicines and Tylenol [...] congestion worse. 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 Active 2022 CHRISTOPHER lindsey PA - [facility] 3 08:31:22 Injury of finger 20726899 Active 2023 LOY CARBALLO NP [address] [place], [address] , PA - [facility] 4 19:59:33 Pain in finger 54771718 Active 2023 [place], [address] , PA - [facility] 4 20:06:37 [...] Name and Address Organization Details Recorded Time 224578 amoxicill in medicatio n rash Not available Not available 09/18/2022 723 RxNorm CHRISTOPHER DC [facility] PA - [facility] 3 08:29:37 Medications [...] e) 50 mcg/actuati on nasal spray,suspe nsion Cutler 1 spray every day by intranasa l route as directed for 30 days. 07/25 completed Not Available Not Available Not Available Vitals Date Recorded Body height Body mass index (BMI) Body weight Pain severity - 0-10 verbal numeric rating [Score] - Reported Respiratory rate Body temperature Oxygen saturation Oxygen saturation in Arterial blood by Pulse oximetry Heart rate Systolic And Diastolic Provider Name and Address Organization Details Last Updated DateTime 4 160.02 cm 20.4 kg/m2 74820.1 2 g 3 16 /min 97.7 [degF] 100 % 100 % 80 /min 117/70 mm[Hg] HERNAN LANGE PA - [facility] 4 19:21:03 Date Recorded Body height Body mass index (BMI) Body weight Oxygen saturation Oxygen saturation in Arterial blood by Pulse oximetry Heart rate Respiratory rate Body temperature Systolic And Diastolic Provider Name and Address Organization Details Last Updated DateTime 3 160.02 cm 20.4 kg/m2 94809.1 2 g 100 % 100 % 86 /min 18 /min 97.9 [degF] 121/82 mm[Hg] CHRISTOPHER VANDA [facility] 3 08:33:57 Social History Question Answer Notes LastModified by [employer] Details LastModified Time Tobacco Smoking Status Never Smoker CHRISTOPHER lindsey [facility] 09/18/2022 08:31:38 Have You Had Direct Contact, Or Contact During Intimacy, With Monkeypox Rash, Scabs, Or Body Fluids From A Person With Monkeypox? No Information not available 09/18/2022 Have You Recently Traveled Abroad? No Information not available 09/18/2022 Are You Currently In School? Yes Information not available 09/18/2022 Sex: Unknown Functional Status Question Answer Note LastModified by [employer] Details LastModified Time Do you use any [...] A, ped/adol, 2 dose 5 completed CHRISTOPHER GOODTASHAND null, PA - [facility] 09/18/2022 08:29:29 Hep A, ped/adol, 2 dose 6 completed CHRISTOPHER GOODTASHAND null, PA - [facility] 09/18/2022 08:29:29 meningococcal MCV4P 8 completed CHRISTOPHER GOODHIND null, PA - [facility] 09/18/2022 08:29:29 Influenza, split virus, quadrivalent, PF 9 completed CHRISTOPHER LUOND null, PA - [facility] 09/18/2022 08:29:29 Influenza, split virus, quadrivalent, PF 0 completed CHRISTOPHER GOODHIND null, PA - [facility] 09/18/2022 08:29:29 Influenza, split virus, quadrivalent, PF 1 completed CHRISTOPHER LUOND null, PA - [...] Diagnosis SNOMED-CT Code Diagnosis ICD10 Code Diagnosis IMO Codes Diagnosis Note [id number] [facility] [address] _[facility] [address] [address] 04/30/2016 18:12:39 04/30/2016 19:13:58 [id number] [address] [address] [facility] [address] [place] [address] 01/26/2016 18:18:55 01/26/2016 19:05:48 [id number] [address] [place] [address] 01/29/2016 16:27:05 01/29/2016 16:47:15 [id number] [address] [place] [address] 12/23/2021 09:41:22 12/23/2021 10:05:37 [id number] [address] [place] [address] 01/20/2020 14:24:46 01/20/2020 15:46:09 [id number] [address] [place] [address] 05/15/2019 11:28:14 05/15/2019 11:57:46 [id number] [address] [place] [address] 06/27/2019 09:14:26 06/27/2019 09:46:15 [id number] [address] [place] [address] 05/26/2019 08:53:30 05/26/2019 09:19:33 [id number] [address] [place] [address] 05/18/2019 08:52:36 05/18/2019 09:38:37 [id number] [address] [place] [address] 06/26/2019 11:35:44 06/26/2019 12:12:01 [id number] [address] [place] [address] 04/18/2019 08:49:40 04/18/2019 09:22:33 [id number] Wade Brown, HOME CARE MUSIC THERAPIST [address] [address] [facility] [place] [address] 09/18/2022 08:11:58 09/18/2022 09:22:25 Acute sinusitis 51508442 J01.90 [id number] [place] [address] [facility] [address] [place] [address] 07/26/2023 17:55:49 07/30/2023 14:49:53 Injury of finger 57584242 S69.91XA Pain in finger 89414154 M79.644 Health Concerns Section Related Observation LastModified by Organization Detai ls LastModified Time None Recorded Concern Status LastModified by Organization Details LastModified Time None Recorded Advance Directives Directive None Recorded Payers Insurance Date Sequence Insurance Name Policy Number Policy Allen Covered Member ID Allen Member ID Guarantor Name 07/26/2023 1 [facility] (MEDICAID REPLACEMENT - HMO) [place] Zunilda Ram [id number] Zunilda Ram 07/26/2023 1 [facility] [id number] Zunilda Ram [id number] Zunilda Ram 07/26/2023 2 [facility] (MEDICAID HMO) Zunilda Ram [id number] Zunilda Ram Notes Date Note Type Note Provider Name and Address Organization Details Recorded Time 3 text/html Ear Pain Brief HPIReported by PatientHPIFor location, patient reportspain radiates to neckbut reportsbilateral. For quality, patient reportsaching painandsharp pain. For context, patient reportsrecent ear infection. For associated symptoms, patient reportscough,nasal congestion, andnasal discharge. For onset/timing, patient reportsintermittent painandgradual onset. For duration, patient reportsoccurs dailyandsensation/episod e variable length. For severity, patient reportsgetting worseandcurrent pain 5/10. For alleviating factors, patient reportsototopical antibiotics: ___andnasal steroid spray. For aggravating factors, patient reportssinus infections,allergies, andirrigation of ear. CongestionReported by Patientnasal congestion with post nasal drip x 3 days. denies nay fever or fever with chills. no SOB or respiratory distress. Wade Brown NP [address] [place], [address], PA - [facility] 09/18/2022 09:15:38 4 text/html Finger PainReported by PatientHistoryFor location, patient reportsproximal phalanxbut reportslocation: rightandlittle finger(pain, deformity, bruising proximal aspect). For source of patient information, (5th finger pain laceration, bruisingwas playing lacrose, was stuck by another playerhas mild pain, no tingling or numbness to tip of pinky finger).Neurovascular StatusFor neurovascular status, patient reportscolor change in affected fingerbut reportsno numbness or tingling.SymptomsFor symptoms, patient reportspain with rom,swelling,bruising, andlaceration/abrasion. LOY CARBALLO NP [address] [place], [address], PA - [facility] 07/26/2023 20:35:47 OBGyn Episode No OBEpisode recorded.
--- OUTSIDE RECORDS SUMMARY | 2025-02-10 13:35 | XMS_ITS | Encounter Summary ---
Author Organization [facility] Address [address] [place] [address] Phone Care Team Providers Care Librarian Head Name Role Phone Mei Jesus MD Primary Care Provider Encounter Details Date Type Department Care Team (Late st Contact Info) Description 11/28/2016 Conversion Encounter [facility] [address] [place] [address] Social History Tobacco Use Types Packs/Day Years [...] on filedocumented in this encounter Care Teams Librarian Head Relationship Specialty Start Date End Date Mei Jesus MD [address] [place] [address] PCP - General Pediatrics 11/27/22 02/11/23 documented as of this encounter
--- OUTSIDE RECORDS SUMMARY | 2025-02-10 13:35 | XMS_ITS | Encounter Summary ---
Author Organization [facility] Address [address] [place] [address] Phone Care Team Providers Care Reed Maker Name Role Phone Mei Jesus MD Primary Care Provider + [phone] Reason for Visit * Reason Comments Med Refill Encounter Details Date Type Department Care Team (Late st Contact Info) Description 01/10/2017 Refill [facility] [address] [place] [address] Magdalena Chavez NP [address] [address] Oral contraceptive use (Primary Dx) Social History [...] Primary documented in this encounter Care Teams Reed Maker Relationship Specialty Start Date End Date Mei Jesus MD [address] [place] [address] PCP - General Pediatrics 11/27/22 02/11/23 documented as of this encounter
--- OUTSIDE RECORDS SUMMARY | 2025-02-10 13:35 | XMS_ITS | Encounter Summary ---
Author Organization [facility] Address [address] [place] [address] Phone Care Team Providers Care Experimental Mechanic Name Role Phone Mei Jesus MD Primary Care Provider + [phone] Reason for Visit * Reason Comments Med Refill Encounter Details Date Type Department Care Team (Late st Contact Info) Description 09/17/2017 Refill [facility] [address] [place] [address] Magdalena Chavez NP [address] [place] [address] Oral contraceptive use Social History Tobacco Use [...] use documented in this encounter Care Teams Experimental Mechanic Relationship Specialty Start Date End Date Mei Jesus MD [address] [place] [address] PCP - General Pediatrics 11/27/22 02/11/23 documented as of this encounter
--- OUTSIDE RECORDS SUMMARY | 2025-02-10 13:36 | XMS_ITS | Clinical Summary ---
Author Organization [facility] Address [address] [place] [address] Phone Care Team Providers Care Bank And Savings Securities Trader Name Role Phone Saurabh Renee MD Primary Care Provider [phone] Allergies Active Allergy Reactions Criticality Noted Date [...] AM EDT [facility] [address] [place] [address] Bhargavi Garner, NAKIA Pudendal neuralgia (Primary Dx) [...] topic Medical Devices Not on file Insurance [facility] Synoste Oy [facility] CHILDREN'S ACO [facility] [place] [address] [place] [address] [facility]DR[facility] [place] [address] [place] [address] [place] [address] [place] [address] [facility] [place] [address] [place] [address] [facility]ILDREN'S A[facility] CHILDRENS ACO [facility]ILDRENS ACO [facility] CHILDREN'S ACO [facility] Care Teams Bank [employer] Savings Securities Trader Relationship Specialty Start Date End Date Saurabh Renee MD [facility] [place] [address] PCP - General Internal Medicine 04/02/24 Additional Source Comments The information contained in this document represents components of the legal health record. It is not the complete legal health record.[facility]
--- OUTSIDE RECORDS SUMMARY | 2025-02-10 13:36 | XMS_ITS | Encounter Summary ---
Author Organization [facility] Address [address] [place] [address] [place] [address] Phone Care Team Providers Care Goodyear Welter Name Role Phone Saurabh Renee MD Primary Care Provider Encounter Details Date Type Department Care Team (Late st Contact Info) Description 10/04/2024 Ancillary Orders [facility] [address] [place] [address] Colleen Bangura MD [address] [place] [address] [email or web address] Other chronic pain (Primary Dx) Social History [...] Pain Management (10/12/2024 12:14 PM EDT) Narrative [facility] - 10/12/2024 12:14 PM EDT Fluoroscopy was provided during this procedure. us Colleen Bangura MD IMG FL EXAMS Final Resul t [facility] documented in this encounter Visit Diagnoses Diagnosis Other chronic pain- Primary Other chronic pain documented in this encounter Care Teams Goodyear Welter Relationship Specialty Start Date End Date Saurabh Renee MD [address] [place] [address] PCP - General Internal Medicine 04/02/24 documented as of this encounter Additional Source Comments The information contained in this document represents components of the legal health record. It is not the complete legal health record.[facility]
--- OUTSIDE RECORDS SUMMARY | 2025-02-10 13:36 | XMS_ITS | Clinical Summary ---
Author Organization [facility] Address [address] [place] [address] Phone Care Team Providers Care Tubing Machine Operator Name Role Phone Unavailable Primary Care Provider [...] Right wrist pain 12/18/2021 Overview (11/15/2022): Seen [place] - compartment release done 10/2021 Had TFCC injection done 12/14/21 3rd cortisone injection in the past week Surgery done 08/09/22 in [place] Assessment & Plan (04/11/2022 10:47 AM EST): Follow up in [place] Left medial tibial stress syndrome 03/28/2020 Overview [...] these potential dx after being seen by [facility] for repeat/2nd opinion 11/2021 - had repeat releases/fasciotomies bilaterally at [facility] 05/2022 - ortho follow up in [place] - doing well, ok to return to sports, follow up 6 months. Assessment & Plan (04/11/2022 10:46 AM EST): Recently completed PT post-surgery (10/2021) for release - follow up in [place] as scheduled Assessment & Plan (03/28/2020 9:30 [...] completed. F/u scheduled, brief txMaria Luna [facility]. F/u scheduled, brief txMaria Luna [...] as necessary. PLAN: 1. Follow up with [facility]; Vv visit scheduled, Zunilda is aware that [...] as necessary. PLAN: 1. Follow up with [facility]; Vv visit scheduled, Zunilda is aware that [...] as necessary. PLAN: 1. Follow up with [facility]; Vv visit scheduled, Zunilda is aware that [...] as necessary. PLAN: 1. Follow up with [facility]; Vv visit scheduled, Zunilda is aware that [...] take periactin at night, consider chiropractic at [facility] with Dr. Pacheco if you would like. Assessment & Plan (02/04/2020 4:24 PM EDT): Not every day but still bothersome. Suggest the following. 1. Take the time to do the relaxation mental imagery twice daily, or AT LEAST once daily and simple deep breathing in between. 2. See the chiropractor at [facility] 3. Begin Periactin. Assessment & [...] (08/26/2019 10:53 AM EDT): No signs of SUPERVISOR INSPECTION DEPARTMENT or other organic lesion. 1. Work on [...] 11/15/2022, 06/2022, 04/11/2022 Procedures * Due to [place] [employer] law, this organization might not be sharing sensitive test results. Procedure Name Priority Date/Time Associated Diagnosis Comments CHLAMYDIA AND GONORRHEA, AMPLIFIED Routine 04/11/2022 11:14 AM EST Encounter for screening examination for chlamydial infection from Last 3 Months or Most Recently Relevant to Health Maintenance Results * Due to [place] [employer] law, this organization might not be sharing sensitive test results. * Chlamydia and Gonorrhoea, Amplified (04/11/2022 11:14 AM EST) Chlamydia Trachomatis, DNA Probe NEGATIVE (NEG) [facility] Comment: No Chlamydia Trachomatis RNA detected in this patient's sample (REFERENCE RANGE/NORMAL VALUE: NOT DETECTED) Note: This test uses info print press operator- mediated amplification method to detect rRNA from C. Trachomatis URINE GC AMP PROBE NEGATIVE (NEG) [facility] Comment: No Neisseria Gonorrhoeae RNA detected in this patient's sample (REFERENCE RANGE/NORMAL VALUE: NOT DETECTED) NOTE: This test uses info print press operator-mediated amplification method to detect rRNA from N.Gonorrhoeae. [...] without risk of sexual abuse. Consult the [facility] if needed. Contact phone number . Therapeutic failure or success cannot be determined with the Aptima Combo2 assay since nucleic acid may persist following appropriate antimicrobial therapy. The Centers for Disease Control and Prevention (CDC) recommends confirmatory retesting using culture or a different nucleic acid amplification test when positive results occur, if indicated. Testing performed or reported by [facility], a Service of [facility], [address] [place] [address] [place] [address] Jeromy Casanova MD, Cullet Trucker [facility]# [id number] Urine (Urine) 04/11/2022 11: 14 AM EST 04/11/2022 7:00 PM EST us Mei Jesus MD LAB MICROBIOLOGY - GENERAL O RDERABLES Final Result [facility] from Last 3 Months or Most Recently Relevant to Health Maintenance Insurance [facility] NON PCC [facility] Address: [address] [address] [place] [address]
--- OUTSIDE RECORDS SUMMARY | 2025-02-10 13:36 | XMS_ITS | Clinical Summary ---
Author Organization [facility] Address [address] [place] [address] Phone Care Team Providers Care Supportive Employment Case Manager Name Role Phone Fatou Carr Unavailable [phone] Mei Jesus MD Primary Care Provider [phone] Iqra Walker Unavailable [phone] Medications rizatriptan (Maxalt) 10 mg tablet mg, [...] of Treatment Not on file Care Teams Supportive Employment Case Manager Relationship Specialty Start Date End Date Fatou Carr [address] [place] [address] PCP - Insurance PCP 01/27/23 Mei Jesus MD [address] [place], [place] [phone] PCP - General 05/24/22 Iqra Walker [address] [place], [place] [address] PCP - Clinical PCP 08/08/21
== END 2025-02-10 10:54 | disposition home or self-care (01) ==
LOC: HO.MAMMO 10:53
PROVIDERS: PCP Internal Medicine; Visit Provider Internal Medicine
DX: R92.2 Inconclusive mammogram (principal)
CPT/HCPCS: 76642

== ENCOUNTER → 2025-02-10 11:00 | Outpatient (BNV) | payer OTHER, SELFPAY | PROVIDERS: PCP Internal Medicine; Visit Provider Internal Medicine | DX: N63.22 Unspecified lump in the left breast, upper inner quadrant (principal) | CPT/HCPCS: 76642 ==